=== PATIENT | female | born 1945 | race Caucasian/White ===

== ENCOUNTER → 2018-04-23 17:01 | Outpatient (CLI) | payer MEDICARE, BC, SELFPAY ==
--- NOTE | 2018-04-23 17:10 | MM_ITS ---
MM Dig screening mamm BI w/CAD CAD Screening COMPARISON: Digital mammograms with CAD 02/04/2016 and 01/26/2015 INDICATION: There is a history of breast cancer in patient's mother and paternal grandmother both after menopause TECHNIQUE: Standard CC and MLO images were obtained. R2 CAD reviewed. FINDINGS: Moderate fibroglandular densities are seen in the central portions of both breasts and the findings are bilateral and symmetrical. There are a few benign-appearing calcifications in each breast. There is no suspicious lesion and there are no suspicious microcalcifications. IMPRESSION: Moderate breast density with no suspicious lesion seen BI-RADS Category: 2 Benign Finding(s) RECOMMENDED FOLLOW-UP: 1YR - 1 YEAR FOLLOW-UP (A letter has been sent to the patient regarding results of the study.)
== END ==
PROVIDERS: PCP Family Medicine; Visit Provider Obstetrics & Gynecology
DX: Z12.31 Encounter for screening mammogram for malignant neoplasm of breast (principal)
CPT/HCPCS: 77067

== ENCOUNTER → 2018-05-01 16:52 | Outpatient (CLI) | payer MEDICARE, BC, SELFPAY ==
--- NOTE | 2018-05-01 17:00 | XR_ITS ---
XR chest 2V HISTORY: ITS.REASON: BRONCHITIS ORDERING PHYSICIAN: Charanjit Orr MD PATIENT AGE: 72 years COMPARISON: 02/10/2015 FINDINGS: The cardiomediastinal silhouette and pulmonary vascularity are within normal limits. The lungs are clear without infiltrates, suspicious nodules, or pleural effusions. No acute bony abnormalities. IMPRESSION: Negative chest, no acute finding
== END ==
PROVIDERS: PCP Family Medicine; Visit Provider Family Medicine
DX: J40 Bronchitis, not specified as acute or chronic (principal)
CPT/HCPCS: 71046

== ENCOUNTER → 2018-10-14 09:25 | Outpatient (CLI) | payer MEDICARE, BC, SELFPAY ==
--- NOTE | 2018-10-14 09:35 | XR_ITS ---
XR DEXA axial skeleton HISTORY: ITS.REASON: OSTEOPENIA ORDERING PHYSICIAN: Charanjit Orr MD PATIENT AGE: 73 years COMPARISON: None FINDINGS: The BMD measured at the Left femoral neck is 1.060 g/cm squared with a T score of 0.2. This is considered Normal according to the World Health Organization criteria. Fracture risk is Low. Treatment is advised. The L1 L4 density has a T score of 2.0 which is normal. IMPRESSION: Normal bone density. Suggest follow-up exam October 2020
== END ==
PROVIDERS: PCP Family Medicine; Visit Provider Family Medicine
DX: M85.89 Other specified disorders of bone density and structure, multiple sites (principal)
CPT/HCPCS: 77080

== ENCOUNTER → 2019-05-13 09:29 | Outpatient (CLI) | payer MEDICARE, BC, SELFPAY ==
--- NOTE | 2019-05-13 09:30 | MM_ITS ---
PROCEDURE: MM DIG SCREENING MAMM BI W/CAD Patient Age:73Y CLINICAL INDICATION: screening mammogram: Patient takes Premarin... No new complaints.. Previous right breast aspiration Family history. Mother with breast cancer age 65. Grandmother age 70 COMPARISON: DMSB DIGITAL MAMM-SCREEN BILATERAL from 10/06/2010 DMSB DIGITAL MAMM-SCREEN BILATERAL from 12/25/2011 DMSB DIG MAMM-SCREEN MAKENNA from 12/27/2012 DMSB DIG MAMM-SCREEN MAKENNA from 01/01/2014 DMSB DIG MAMM-SCREEN MAKENNA from 01/26/2015 DMSB DIG MAMM-SCREEN MAKENNA from 02/04/2016 [facility] MM Dig screening mamm BI w/CAD from 04/23/2018 TECHNIQUE: Standard CC and MLO images were obtained. R2 CAD reviewed. FINDINGS: Moderate density heterogeneous breast tissue pattern bilaterally.,. No dominant or suspicious mass, no suspicious calcifications,. Right breast: The heterogeneous tissue at the central breast is similar to multiple previous studies with no significant interval change but no new areas of concern. A Left breast: Stable since multiple previous studies. Two thousand and 2016 provide the best comparison the IMPRESSION: Stable bilateral mammogram. No new areas of concern Bilateral follow-up 1 year recommended moderately dense heterogeneous breast for age. BI-RAD Category: 2 Benign Finding(s) FOLLOW-UP: 1YR 1 Year Follow-up (A letter has been sent to the patient regarding results of the study.) Dictated by: Jim Tam MD 05/14/2019 21:43 Electronically signed by Jim Tam MD in [place] 05/14/2019 21:43
== END ==
PROVIDERS: PCP Family Medicine; Visit Provider Obstetrics & Gynecology
DX: Z12.31 Encounter for screening mammogram for malignant neoplasm of breast (principal)
CPT/HCPCS: 77067

== ENCOUNTER → 2019-07-30 14:09 | Outpatient (CLI) | payer MEDICARE, BC, SELFPAY ==
--- NOTE | 2019-07-30 14:27 | XR_ITS ---
PROCEDURE: XR CHEST 2V CLINICAL HISTORY: PERSISTANT COUGH COMPARISON: CXR CHEST(2 VIEWS-NOT PORTABLE) from 02/08/2015 CXR CHEST(2 VIEWS-NOT PORTABLE) from 02/10/2015 CXR2V XR chest 2V from 05/01/2018 FINDINGS: The cardiomediastinal silhouette and pulmonary vascularity are within normal limits. Patchy peripheral infiltrate is present in the right upper lobe laterally. No acute bony abnormalities. IMPRESSION: Patchy peripheral right upper lobe infiltrate/pneumonia Dictated by: Armando Gonzales MD 07/30/2019 18:40 Electronically signed by Armando Gonzales MD in [place] 07/30/2019 18:40
== END ==
PROVIDERS: PCP Family Medicine; Visit Provider Family Medicine
DX: R05 Cough (principal)
CPT/HCPCS: 71046

== ENCOUNTER → 2019-08-09 10:59 | Outpatient (CLI) | payer MEDICARE, BC, SELFPAY ==
--- NOTE | 2019-08-09 | XR_ITS ---
PROCEDURE: XR CHEST 2V Patient Age:73Y CLINICAL HISTORY: FU PNEUMONIA COMPARISON: CXR CHEST(2 VIEWS-NOT PORTABLE) from 02/10/2015 CXR2V XR chest 2V from 05/01/2018 XR CHEST 2V from 07/30/2019 FINDINGS: Today's PA and lateral chest is compared the recent 07/30/2019 chest film which showed a questionable small patchy infiltrate at the periphery of the right lung project over scapula. This suspect small patchy infiltrate feature has cleared and no longer evident . Both lung ballesteros appear clear on today's study with no focal or active infiltrate appreciable. Heart tasha and mediastinal structures appears satisfactory. Stable. No pleural effusion or pneumothorax. Chest wall and T-spine stable and satisfactory. pulmonary vascularity are within normal limits. . No acute bony abnormalities. IMPRESSION: Lungs appear clear on today's study. The small patchy infiltrate at right lung noted on recent CXR from 07/30/2019 is no longer evident. Dictated by: Jim Tam MD 08/09/2019 19:01 Electronically signed by Jim Tam MD in [place] 08/09/2019 19:01
== END ==
PROVIDERS: PCP Family Medicine; Visit Provider Physician Assistant
DX: J18.9 Pneumonia, unspecified organism (principal); R05 Cough
CPT/HCPCS: 71046

== ENCOUNTER → 2020-05-19 08:54 | Outpatient (CLI) | payer MEDICARE, BC, SELFPAY ==
--- NOTE | 2020-05-19 08:54 | MM_ITS ---
PROCEDURE: MM DIG SCREENING MAMM BI W/CAD Referring Doctor: Teresa Palacios Patient Age:74Y CLINICAL INDICATION: Routine Screening Mammogram Takes Premarin. No new complaints Family history mother breast cancer age 70; paternal grandmother age 70 COMPARISON: MG DMSB DIGITAL MAMM-SCREEN BILATERAL from 12/25/2011 MG DMSB DIG MAMM-SCREEN MAKENNA from 12/27/2012 MG DMSB DIG MAMM-SCREEN MAKENNA from 01/01/2014 MG DMSB DIG MAMM-SCREEN MAKENNA from 01/26/2015 MG DMSB DIG MAMM-SCREEN MAKENNA from 02/04/2016 MG [facility] MM Dig screening mamm BI w/CAD from 04/23/2018 MG MM DIG SCREENING MAMM BI W/CAD from 05/13/2019 TECHNIQUE: Standard CC and MLO images were obtained. R2 CAD reviewed. Bilateral digital breast tomosynthesis included. FINDINGS: Heterogeneous breast pattern, with scattered fibroglandular elements. Overall moderate breast density Prior films are very helpful and again note heterogeneous scattered asymmetric fibroglandular density overall these have remained fairly stable but with only mild accentuation of areas discussed below at right breast the Right breast- On today's standard cc view note area density labeled A at lateral central breast-. Initially question possible minor architectural changes in this region on the is standard CC view but this areas less concerning on the tomosynthesis view and seems to dissipate of for the most part, this more likely overlapping shadows. Also on today's MLO view there is a similar slightly focal area at the central breast labeled Y.. Which is questionably seen on MLO tomosynthesis slice 36 I tend to favor these are both more likely accentuation of overlapping fibroglandular elements the which are slightly more evident today.-. Note very similar heterogeneous tissue pattern throughout the central breast is been seen on studies dating back to 2014, 2016, 2018. However since these areas standout slightly more on today's studies I would suggest additional mammogram spot views (spot cc, spot MLO and full 90 view right breast) ultrasound of right breast to best evaluate these areas. Left breast-no new areas of concern on the left. Follow-up 1 year adequate on left IMPRESSION: Right breast-minimal areas of asymmetry labeled A and B. These more likely accentuated due to overlapping shadows today; however I would suggest spot views and ultrasound right breast to further evaluate Left breast no new areas of concern in. Follow-up 1 year on left . BI-RAD Category: 0 Need Additional Imaging Evaluation FOLLOW-UP: Additional spot views and ultrasound breast recommended at this time as discussed in the report above (A letter has been sent to the patient regarding results of the study.) THE Dictated by: Jim Tam MD 05/26/2020 08:57 Jim Tam MD in [place] 05/26/2020 08:57
== END ==
PROVIDERS: PCP Family Medicine; Visit Provider Obstetrics & Gynecology
DX: Z12.31 Encounter for screening mammogram for malignant neoplasm of breast (principal)
CPT/HCPCS: 77063; 77067

== ENCOUNTER → 2020-06-07 13:35 | Outpatient (CLI) | payer MEDICARE, BC, SELFPAY ==
--- NOTE | 2020-06-07 13:35 | MM_ITS ---
PROCEDURE: MM DIG MAMM DX UNILAT RT CAD Digital Breast Tomosynthesis Included CLINICAL INDICATION: Dx Right Breast- Abnormal Mammogram COMPARISON: MG [facility] MM Dig screening mamm BI w/CAD from 04/23/2018 MG MM DIG SCREENING MAMM BI W/CAD from 05/13/2019 MG MM DIG SCREENING MAMM BI W/CAD from 05/19/2020 US US BREAST RT COMPLETE from 06/07/2020 TECHNIQUE: Standard CC and MLO images and 3D Tomosynthesis was obtained. R2 CAD reviewed. Spot compression MLO and CC views were obtained as well FINDINGS: The additional spot views lessen concern for any suspicious lesion in the central portion and subareolar region right breast. Minimal focal arterial calcifications again seen along with a few benign-appearing microcalcifications. Ultrasound performed the same date shows several tiny cystic lesions which all appear benign all no more than 3-4 mm in size. IMPRESSION: Basically negative problem solving views and in addition no ultrasound suggestion of abnormal lesions and recommend the patient continue with yearly screening mammography BI-RAD Category: 2 Benign Finding(s) FOLLOW-UP: 1YR 1 Year Follow-up (A letter has been sent to the patient regarding results of the study.) Dictated by: Dr. Ashvin Huang MD 06/14/2020 09:31 Dr. Ashvin Huang MD in [place] 06/14/2020 09:31
--- NOTE | 2020-06-07 13:35 | US_ITS ---
PROCEDURE: US BREAST RT COMPLETE CLINICAL INDICATION: US Right Breast- Abnormal Mammogram COMPARISON: No exams were available for comparison FINDINGS: Fairly homogeneous echogenicity is seen in the subareolar region and central portion of the breast. There are several tiny hypoechoic there is no suspicious solid lesions seen. There is a couple of normal appearing nodes in the axilla. Lesions the 6, 7 and 10 o'clock positions near the nipple all no more than 3-4 to 5 mm in size and typical of tiny cysts. IMPRESSION: No suspicious lesions seen in the area scanned and along with essentially and negative problem solving views same date and recommend the patient continue with yearly screening mammography Dictated by: Dr. Ashvin Huang MD 06/14/2020 09:52 Dr. Ashvin Huang MD in [place] 06/14/2020 09:52
== END ==
PROVIDERS: PCP Family Medicine; Visit Provider Obstetrics & Gynecology
DX: R92.8 Other abnormal and inconclusive findings on diagnostic imaging of breast (principal)
CPT/HCPCS: 76641; 77061; 77065; G0279

== ENCOUNTER → 2021-04-25 16:49 | Outpatient (CLI) | payer MEDICARE, SELFPAY ==
--- NOTE | 2021-04-25 16:56 | XR_ITS ---
PROCEDURE: XR CHEST 2V CLINICAL HISTORY: COUGH COMPARISON: CR CXR2V XR chest 2V from 05/01/2018 CR XR CHEST 2V from 07/30/2019 CR XR CHEST 2V from 08/09/2019 FINDINGS: The cardiomediastinal silhouette and pulmonary vascularity are within normal limits. The lungs are clear without infiltrates, suspicious nodules, or pleural effusions. No acute bony abnormalities. IMPRESSION: No acute findings. Dictated by: Armando Gonzales MD 04/27/2021 11:41 Armando Gonzales MD in [place] 04/27/2021 11:41
== END ==
PROVIDERS: PCP Family Medicine; Visit Provider Family Medicine
DX: R05.9 Cough, unspecified (principal)
CPT/HCPCS: 71046

== ENCOUNTER → 2023-03-06 10:10 | Outpatient (CLI) | payer MEDICARE, SELFPAY ==
--- NOTE | 2023-03-06 11:05 | PC.NURSE ---
PFT completed without incident Pt given Albuterol 0.083% via HHN, per written protocol, Pt tolerated tx well. Pt did refuse 6 Minute Walk Test states she has never needed Oxygen and does not feel that she needs it now. SPO2 99% sitting comfortably in the chair at this time.
[2023-03-06 11:34] LABS: Basophils % 0.4 % (0.1-2.0); Eosinophils # 0.2 K/mm3 (0.0-0.4); Eosinophils % 1.8 % (0.1-12.0); Hematocrit 42.4 % (37.0-47.0); Hemoglobin 14.4 g/dL (12.2-16.2); Lymphocytes # 2.4 K/mm3 (0.7-4.5); Lymphocytes % 28.9 % (10-50); Mean Corpuscular HGB Conc 33.9 g/dL (31.8-35.4); Mean Corpuscular Hemoglobin 31.5 pg (27.0-31.2); Mean Corpuscular Volume 92.9 fl (81-99); Mean Platelet Volume 7.7 fl (7.4-10.4); Monocytes # 0.4 K/mm3 (0.1-1.0); Monocytes % 4.8 % (1.7-9.3); Neutrophils # 5.3 K/mm3 (1.8-7.8); Neutrophils % 64.1 % (37.0-80.0); Platelet Count 333 K/mm3 (142-424); Red Blood Count 4.56 M/mm3 (4.20-5.40); Red Cell Distribution Width 13.1 % (11.5-17.5); White Blood Count 8.3 K/mm3 (4.8-10.8)
[2023-03-09 14:34] LABS: D001-IgE D pteronyssinus <0.10 kU/L (Class 0); D002-IgE D farinae <0.10 kU/L (Class 0); E001-IgE Cat Dander <0.10 kU/L (Class 0); E005-IgE Dog Dander <0.10 kU/L (Class 0); E072-IgE Mouse Urine <0.10 kU/L (Class 0); G002-IgE Bermuda Grass <0.10 kU/L (Class 0); G006-IgE Timothy Grass <0.10 kU/L (Class 0); I006-IgE Cockroach, German <0.10 kU/L (Class 0); Immunoglobulin E, Total 5 IU/mL (6-495); M001-IgE Penicillium chrysogen <0.10 kU/L (Class 0); M002-IgE Cladosporium herbarum <0.10 kU/L (Class 0); M003-IgE Aspergillus fumigatus <0.10 kU/L (Class 0); M006-IgE Alternaria alternata <0.10 kU/L (Class 0); T001-IgE Maple/Box Elder <0.10 kU/L (Class 0); T003-IgE Common Silver Birch <0.10 kU/L (Class 0); T006-IgE Cedar, Mountain <0.10 kU/L (Class 0); T007-IgE Oak, White <0.10 kU/L (Class 0); T008-IgE Elm, American <0.10 kU/L (Class 0); T010-IgE Walnut <0.10 kU/L (Class 0); T011-IgE Maple Leaf Sycamore <0.10 kU/L (Class 0); T014-IgE Cottonwood <0.10 kU/L (Class 0); T015-IgE Ash, White <0.10 kU/L (Class 0); T022-IgE Pecan, Hickory <0.10 kU/L (Class 0); T070-IgE White Mulberry <0.10 kU/L (Class 0); W001-IgE Ragweed, Short <0.10 kU/L (Class 0); W011-IgE Thistle, Russian <0.10 kU/L (Class 0); W014-IgE Pigweed, Common <0.10 kU/L (Class 0); W018-IgE Sheep Sorrel <0.10 kU/L (Class 0)
== END ==
PROVIDERS: PCP Family Medicine; Visit Provider Internal Medicine Pulmonary Disease
DX: R06.02 Shortness of breath; J45.909 Unspecified asthma, uncomplicated
CPT/HCPCS: 36415; 82785; 85025; 86003; 94060; 94726; 94729

== ENCOUNTER 2023-09-04 07:53 | Outpatient (CLI) | payer MEDICARE, SELFPAY ==
--- NOTE | 2023-09-04 | CA_ITS ---
APPROVED REPORT Exam: Pharmacologic Technologist: Anila Winkler Ht: 5 ft 3 in Wt: 195 lbs BSA: 1.91 m2 HR: 69 bpm BP: 167/70 mmHg Rhythm: NSR Indications: Shortness of Air Medical History Medications: Aspirin,,,,, Pantoprazole,,,,, Flonase,,,,, Albuterol,,,,, Calcium,,,,, Montelukast,,,,, AZelastine,,,,, Multivitamin,,,,, Irbesartan-hctz,,,,, Stress Test Details Test: LEXISCAN HR Resting HR: 64 bpm Max Heart Rate (APMHR): 144 bpm Max HR Achieved: 92 bpm Target HR (85% APMHR): 122 bpm % of APMHR: 64 Recovery HR: 69 bpm BP Resting BP: 167.0/70.0 mmHg Max BP: 179.0/68.0 mmHg Recovery BP: 172.0/75.0 mmHg ECG Resting ECG: Sinus rhythm Stress ECG: No significant ST changes Arrhythmia: PVCs Clinical Exercise duration: 04:00 min Highest Stage Achieved: Exercise capacity: 1.0 METs Stress ECG Conclusion Symptoms: None Arrhythmias/Ectopy: PVCs ST-T Changes: No significant ST changes Conclusion: EKG portion unremarkable due to Lexiscan infusion. Myoview images reported separately. Test Summary REST . . . . . . . Resting REST 03:28 . . 64 . 167/ 70 . . Stage 1 . . . . . . . Myoview Injected Stage 1 01:00 . . 89 . . . . Stage 2 01:00 . . 82 . . . . Stage 3 01:00 . . 70 . 160/ 69 . . Stage 4 01:00 . . 69 . 179/ 68 . Stop exercise at 04:00 RECOVERY 01:00 . . 67 . 140/ 74 . . RECOVERY 02:00 . . 66 . 140/ 74 . . RECOVERY 03:00 . . 68 . 167/ 74 . . RECOVERY 04:00 . . 66 . 172/ 75 . . RECOVERY 04:06 . . 65 . 172/ 75 . . Electronically signed by : Irasema Lion MD 09/05/2023 13:06:30
--- NOTE | 2023-09-04 07:57 | NM_ITS ---
APPROVED REPORT Exam: Nuclear Stress Test Indication: SOB, HTN, Family history Patient Location: Outpatient Stress Tech: Anila Winkler [place] Tech:Luizaaimee Bear, ARRT, RT (R)(N) Ht: 5 ft 3 in Wt: 190 lbs Bra Size: 42B HR: 64 bpm BP: 167/70 mmHg BSA: 1.89 m2 TID: 1.13 BMI: 33.6 History: SOB, HTN, Family history Procedure: Patient received 0.4 mg of intravenous Lexiscan, resting heart rate 64 bpm, resting blood pressure 167/70 mmHg, with Lexiscan maximum heart rate achieved was 92 bpm which is % of the maximum predicted heart rate and blood pressure was 179/68 mmHg. With Lexiscan, patient denied any complaint of chest pain. Cardiac Stress and Resting SPECT Images: Cardiac Stress and Resting SPECT images were obtained using technetium 99m Myoview 32.4 mCi stress and 10.55 mCi at rest. Resting and stress imaging in supine or prone positions demonstrated no evidence of fixed or reversible perfusion defects. Gated imaging demonstrates normal global and regional LV systolic function. LVEF estimated at 71%. Conclusion: No evidence of fixed or reversible perfusion defects. Gated imaging demonstrates normal global and regional LV systolic function. LVEF estimated at 71%. Electronically signed by : Irasema Lion MD 09/05/2023 13:07:48
[2023-09-04] MEDS: REGADENOSON 0.4MG/5ML SYRINGE 0.400000000000000022 MG IV (09:18)
[2023-09-04] MEDS: ISOTOPE MYOVIEW (PER STUDY) 1 DOSE IV (09:19)
[2023-09-04] MEDS: SODIUM CHLORIDE 0.9% 10ML SYR (RAD ONLY) 10 ML IV ×2 (09:19)
--- NOTE | 2023-09-04 09:23 | CA_ITS ---
APPROVED REPORT EXAM: Comprehensive 2D, Doppler, and color-flow Echocardiogram [employer] Workers: Claire Ku RVT Ht: 5 ft 3 in Wt: 195lbs BSA: 1.91 BP: 175/70 mmHg Indications: SOA,ASTHMA,EX SMOKER 2D Dimensions IVSd 1.60 cm F: 0.6-1.0 LVEF (Visual) 61.40 % PWd 1.14 cm F: 0.6 - 1.0 LA Volume 30.90 mL LVDd 4.51 cm F: 3.9 - 5.3 LA Volume Index 16.18 mL/m2 (M/F) 16-34 LVDs 3.03 cm F: 2.2 - 3.5 M-Mode Dimensions LA Diam 3.96 cm (1.9-4.0) LV Diastology E Decel Time 210 (160-240 msec) E/A Ratio 0.7 Aortic Valve GARCÍA Index 1.37 cm2/m2 AoV Peak Pineda. 133.0 (50-130 cm/s) AO Peak GR. 7.10 mmHg AO Mean GR. 3.20 (<5 mmHg) AO VTI 26.5 (18-25 cm) GARCÍA (VTI) 2.69 (2.5-4.5 cm2) Mitral Valve MV E Max Pineda. 67.0 (40-130 cm/s) MV A Velocity 99.0 (40-130 cm/s) E/A Ratio 0.67 MV PHT 62.0 ms Pulmonary Valve PV Peak Velocity 95.0 (50-150 cm/s) Left Ventricle The left ventricle is normal size. The left ventricular systolic function is normal. The left ventricular ejection fraction is within the normal range. Proximal septal thickening is noted. There is normal LV segmental wall motion. The left ventricular diastolic function is normal. LVEF is 55%. Right Ventricle The right ventricle is normal size. The right ventricular systolic function is normal. Atria The left atrium size is normal. The right atrium size is normal. There is no Doppler evidence of interatrial shunt. Aortic Valve The aortic valve is mildly thickened. There is no aortic valvular stenosis. No aortic regurgitation is present. Mitral Valve The mitral valve is normal in structure. No evidence of mitral valve stenosis. Trace mitral regurgitation. Tricuspid Valve The tricuspid valve leaflets are thin and pliable. Trace tricuspid regurgitation. There is insufficient TR jet to estimate RVSP. Pulmonic Valve The pulmonary valve is normal in structure. Trace pulmonic regurgitation. Great Vessels The aortic root is normal in size. The ascending aorta is normal in size. IVC is normal in size and collapses >50% with inspiration. Pericardium There is no pericardial effusion. Other Information Study Quality: Fair Conclusion Normal biventricular systolic function. No significant valvular stenosis or regurgitation. Electronically signed by : Irasema Lion MD 09/09/2023 13:55:44
== END 2023-09-04 23:59 | disposition home or self-care (01) ==
PROVIDERS: PCP Family Medicine; Visit Provider Family Medicine
DX: R06.02 Shortness of breath (principal)
CPT/HCPCS: 78452; 93017; 93018; 93306; A9502; J2785

== ENCOUNTER 2023-09-28 12:36 | Outpatient (CLI) | payer MEDICARE, SELFPAY ==
--- NOTE | 2023-09-28 12:46 | XR_ITS ---
FINAL REPORT CLINICAL HISTORY: SHORTNESS OF BREATH FINDINGS: TWO-VIEW CHEST The heart size is normal. The mediastinum is normal. There are mild right base opacities, may represent atelectasis or pneumonia. There is no pneumothorax. IMPRESSION: Right base atelectasis versus pneumonia. Reviewed, Interpreted and Dictated by Speedy Green III, MD Transcribed by Anaya Jeter Authenticated and [facility]
== END 2023-09-28 23:59 | disposition home or self-care (01) ==
LOC: RAD 12:37
PROVIDERS: PCP Family Medicine; Visit Provider Family Medicine
DX: R06.02 Shortness of breath (principal)
CPT/HCPCS: 71046

== ENCOUNTER 2023-10-01 09:23 | Outpatient (CLI) | payer MEDICARE, SELFPAY ==
--- NOTE | 2023-10-01 09:32 | XR_ITS ---
FINAL REPORT CLINICAL HISTORY: SCREENING FINDINGS: Using L1-4, the bone mineral density of the spine is 1.137 g/cm2, corresponding to T-score of 0.8. Using the left hip, the bone mineral density of the femoral neck is 0.97 g/cm2, corresponding to a T-score of 1.1. Using the right hip: The bone mineral density of the femoral neck is 1.044 g/cm2, corresponding to a T-score of 0.8. IMPRESSION: Normal bone mineral density of the lumbar spine and hips. NOTE: T-score: Standard deviation compared with peak bone mass of young adult mean. *Following the recommendations of the International Society of Bone densitometry, classification of hip BMD is based on the lower of two T-scores; total hip or femoral neck. Reviewed, Interpreted and Dictated by Antwan Chavez MD Transcribed by Andria Marrufo Authenticated and [facility]
--- NOTE | 2023-10-01 09:34 | MM_ITS ---
PROCEDURE INFORMATION: Exam: MG Bilateral Screening 3D Mammography Exam date and time: 10/01/2023 9:44 AM Age: 78 years old Clinical indication: Screening examination. Her mother had breast cancer at age 70 and her paternal grandmother had breast cancer at age 70. TECHNIQUE: Imaging protocol: Bilateral Screening tomosynthesis and 2D mammography including computer-aided detection (CAD) when performed. COMPARISON: 1. MG MM DIG MAMM DX UNILAT RT CAD 06/07/2020 1:45 PM 2. MG MM DIG SCREENING MAMM BI W/CAD 05/19/2020 8:57 AM 3. MG MM DIG SCREENING MAMM BI W/CAD 05/13/2019 9:47 AM 4. MG SCBI MM Dig screening mamm BI w/CAD 04/23/2018 5:17 PM FINDINGS: MAMMOGRAPHY: Breast composition: There are scattered areas of fibroglandular density. Mass: None. Architectural distortion: None. Calcifications: No suspicious calcifications. Asymmetric density: None. Skin thickening: None. Axillary adenopathy: None. IMPRESSION: No mammographic evidence of malignancy. Annual screening is recommended unless otherwise clinically indicated. ASSESSMENT: BI-RADS Category 1: Negative
== END 2023-10-01 23:59 | disposition home or self-care (01) ==
LOC: RAD 09:24
PROVIDERS: PCP Family Medicine; Visit Provider Family Medicine
DX: Z12.31 Encounter for screening mammogram for malignant neoplasm of breast; Z78.0 Asymptomatic menopausal state
CPT/HCPCS: 77063; 77067; 77080

== ENCOUNTER 2024-06-12 15:52 | Outpatient (CLI) | payer MEDICARE, SELFPAY ==
--- NOTE | 2024-06-12 15:59 | XR_ITS ---
FINAL REPORT TECHNIQUE: Chest PA & Lateral CLINICAL HISTORY: RESPIRATORY INFECTION COMPARISON: 09/28/2023 FINDINGS: 2 views of the chest were performed. The heart size is normal. The mediastinum is within normal limits. There is patchy airspace opacity at the right base, which is new since prior exam, probably due to acute pneumonia. There are no pleural effusions. There is no pneumothorax. The bony thorax appears intact. IMPRESSION: Right base pneumonia. Reviewed, Interpreted and Dictated by Antwan Chavez MD Transcribed by Ce Padilla Authenticated and [facility]
== END 2024-06-12 23:59 | disposition home or self-care (01) ==
LOC: RAD 15:55
PROVIDERS: PCP Family Medicine; Visit Provider Family Medicine
DX: J98.8 Other specified respiratory disorders (principal)
CPT/HCPCS: 71046

== ENCOUNTER 2024-06-12 17:44 | Inpatient (IN) | payer MEDICARE, SELFPAY ==
[2024-06-12 18:00] VITALS: BP 141/69; PULSE 109; RESP 18; TEMP 37.4; O2SAT 96; BMI 30.2
--- NOTE | 2024-06-12 18:10 | EXP.HP ---
History of Present Illness *Admission Date: 06/12/24 *Reason for visit:: respiratory infection *History of present illness: 78 yo female presents with cough and congestion. She has underlying lung issues and a chronic cough this been going on for a while. She was on vacation in [place] and was seen in an urgent treatment center on 05/26/2024 and subsequently on 06/01/2024. She has received prescriptions for amoxicillin and azithromycin. She was also treated with prednisone and given cough medication. She is continued with cough and congestion. She did have a period of time where she was feeling better but then it has recurred. She had a fever to 101.9 recently. Her cough has been productive. She feels very weak. The issue with the chronic cough has been going on for months. She started having relief after seeing the underwriting support specialist and being treated by Dr. Hanna. She thought that her issue there was resolving. Chest x-ray was obtained in the office today and suggest bilateral infiltrates at the bases. With review of her previous chest x-rays there is some similarity to this pattern. She has seen Dr. Dennis, director of sports medicine, though he has not seen her recently. She has never had a CT scan. She does use an albuterol inhaler periodically. She has been on montelukast prescribed I believe by the underwriting support specialist. She has longstanding hypertension adequately treated. She was negative for flu and COVID 19 swabs in the office of [facility] Disclaimer: The information contained in this section may have been updated after the patient was seen, as this information can be updated by other users. Medical History (Updated 06/12/24 @ 18:28 by Charanjit Orr MD) Hearing deficit Pneumonia History of asthma Chronic cough Allergic rhinitis Surgical History History of appendectomy History of cholecystectomy History of hysterectomy History of section Family History Other Breast cancer Hypertension Social History (Updated 03/20/23 @ 15:42 by Savannah Aviles) Smoking Status: Former smoker smoking status stop date: 1993 alcohol intake: never substance use type: denies use current occupational status: unemployed Travel in the last 8 weeks: Inside the [place] Have you lived/traveled outside US in past 30 days?: No Contact w/someone who lives/traveled outside US past 30 days?: No Exposure to someone with infectious disease in past 14 days?: No Do you have a fever (greater than 100.4 F or 38 C)?: No Have you tested positive for COVID-19: No Exposed to someone with COVID-19 in past 14 days?: No Do you have a sore throat?: No Do you have a cough?: Yes Do you have any weakness?: No Do you have any diarrhea?: No Are you experiencing any unusual bleeding?: No Do you have any muscle aches/pain?: No Do you have any abdominal pain?: No Are you experiencing loss of taste or smell?: No Other Medical History Have you received the Pneumonia Vaccine: Yes Review of Systems Constitutional Constitutional: Reports as per HPI, Denies body ache(s), Denies chills, Reports difficulty sleeping, Denies headache(s) and Reports poor appetite (States she has lost 20 pounds) Eyes Eyes: Reports system reviewed and no additional complaints, except as documented and Denies blurry vision ENT Ears, Nose, Mouth, and Throat: Reports abnormal hearing, Denies dysphagia and Denies headache(s) *Cardiovascular Cardiovascular: Denies chest pain, Denies chest pain at rest, Denies chest pain with activity, Reports dyspnea on exertion, Denies edema, Denies irregular heart rhythm and Denies leg edema *Respiratory Respiratory: Reports chest congestion, Reports cough, Reports dyspnea on exertion, Reports excessive phlegm production (Some) and Denies stridor *Gastrointestinal Gastrointestinal: Denies abdominal pain, Denies change in bowel habits, Denies change in stool character and Denies dysphagia *Genitourinary Genitourinary: Reports system reviewed and no additional complaints, except as documented *Musculoskeletal Musculoskeletal: Reports as per HPI, Denies arthralgias and Reports back pain Integumentary/Breasts Skin/Breast: Reports system reviewed and no additional complaints, except as documented *Neurologic Neurologic: Reports system reviewed and no additional complaints, except as documented, Reports abnormal hearing, Denies behavioral changes and Denies headache(s) Psychiatric Psychiatric: Reports system reviewed and no additional complaints, except as documented, Denies behavioral changes and Reports change in appetite Endocrine Endocrine: Reports system reviewed and no additional complaints, except as documented Hematologic/Lymphatic Hematologic/Lymphatic: Reports system reviewed and no additional complaints, except as documented Allergic/Immunologic Allergic/Immunologic: Reports system reviewed and no additional complaints, except as documented Meds Home Medications and Allergies Home Medications ?Medication ?Instructions ?Recorded ?Confirmed ?Type aspirin 81 mg tablet,delayed 81 mg PO DAILY 04/26/18 03/20/23 History release calcium carbonate (Calcium 600) 600 mg PO TID 04/26/18 03/20/23 History multivitamin 1 cap PO DAILY 04/26/18 03/20/23 History montelukast 10 mg tablet 10 mg PO DAILY 01/23/23 03/20/23 History pantoprazole 40 mg tablet,delayed 40 mg PO DAILY 01/23/23 03/20/23 History release irbesartan 300 1 tab PO DAILY 03/20/23 03/20/23 History mg-hydrochlorothiazide 12.5 mg tablet montelukast 10 mg tablet 10 mg PO DAILY 90 days #90 tabs 03/20/23 03/20/23 Rx azelastine 137 mcg (0.1 %) nasal See Rx Instructions .Route 10/01/23 Rx spray .COMPLEX #30 mL albuterol 90 mcg-budesonide 80 2 inh inhalation QID PRN shortness 11/19/23 Rx mcg/actuation HFA aerosol inhaler of breath #10.7 grams (Airsupra) fluticasone propionate 50 See Rx Instructions .Route 01/09/24 Rx mcg/actuation nasal .COMPLEX #16 grams spray,suspension New Prescriptions to Start Prescriptions: Allergies Allergy/AdvReac Type Severity Reaction Status Date / Time No Known Allergies Allergy Unverified 03/20/23 15:39 Exam Constitutional Constitutional: no acute distress *Routine HEENT Exam Head: Present normocephalic Eye: Present PERRL; Absent conjunctival icterus ENT: Present mucous membranes moist *Routine Neck Exam Neck: Present supple and full ROM Routine Chest/Breast/Axilla Exam Chest wall: Absent tenderness *Routine Respiratory Exam Respiratory: Present decreased breath sounds, rales (Bibasilar greater on the left), rhonchi (On the left) and able to speak in complete sentences; Absent respiratory distress *Routine Cardiovascular Exam Cardiovascular: Present RRR; Absent murmur or ectopic *Routine Abdominal Exam Abdominal: Present soft; Absent tenderness *Routine Rectal Exam Rectal:: deferred *Routine Genitalia Exam Genitalia:: deferred *Routine Extremities Exam Extremities: Absent edema Routine Back/Spine/Pelvis Exam Back/Spine: Absent CVA tenderness *Routine Skin Exam Skin: Present intact and normal turgor; Absent cyanosis, petechiae, urticaria, jaundice or rash *Routine Neurological Exam Neurological: Present alert, oriented X3, CN II-XII intact and moving all extremities; Absent altered mental status or hearing grossly intact Routine Psychiatric Exam Psychiatric: Present normal affect, normal thought process and cooperative Assessment and Plan *Assessment and plan (1) Pneumonia: Status: Acute Category: Medical Code(s): J18.9 - Pneumonia, unspecified organism (2) History of asthma: Status: Acute Category: Medical Code(s): Z87.09 - Personal history of other diseases of the respiratory system (3) Chronic cough: Status: Acute Category: Medical Code(s): R05.3 - Chronic cough (4) Hearing deficit: Status: Acute Category: Medical Code(s): H91.90 - Unspecified hearing loss, unspecified ear Plan IV antibiotics. CT of chest. Pulmonary consult.
--- NOTE | 2024-06-12 18:35 | CT_ITS ---
PROCEDURE INFORMATION: Exam: CT Chest Without and With Contrast; Diagnostic Exam date and time: 06/12/2024 9:01 PM Age: 78 years old Clinical indication: Cough; Additional info: Persistant cough, bibasilar infiltrates TECHNIQUE: Imaging protocol: Diagnostic computed tomography of the chest without and with contrast. Radiation optimization: All CT scans at this facility use at least one of these dose optimization techniques: automated exposure control; mA and/or kV adjustment per patient size (includes targeted exams where dose is matched to clinical indication); or iterative reconstruction. Contrast material: ISOVUE; Contrast volume: 75 ml; Contrast route: IV; COMPARISON: CR XR CHEST 2V 06/12/2024 4:01 PM FINDINGS: Lungs: Bilateral peripheral/perihilar ground-glass opacities. Dense bibasilar opacities/consolidation. Pleural spaces: Unremarkable. No pneumothorax. No pleural effusion. Heart: Unremarkable. No cardiomegaly. No pericardial effusion. Coronary arteries: No atherosclerotic calcification of coronary arteries. Lymph nodes: Calcified and reactive mediastinal lymph nodes without lymphadenopathy. Vasculature: Unremarkable. No aortic aneurysm. Bones/joints: Unremarkable. No acute fracture. Soft tissues: Unremarkable. IMPRESSION: Bilateral perihilar/peripheral ground-glass and bibasilar opacities suspicious for COVID infiltration.
[2024-06-12 18:47] VITALS: PULSE 102; PULSE 98
[2024-06-12] MEDS: IPRATROPIUM/ALBUTEROL 3 ML NEB IH ×2 (18:47→23:15)
[2024-06-12] MEDS: levoFLOXacin 750 MG TABLET PO (18:57)
[2024-06-12] MEDS: ENOXAPARIN 40MG/0.4ML SYRINGE 40 MG SUBCUT (18:57)
[2024-06-12] MEDS: Dex 5% in 0.45% NaCl 1,000 ML 50 ML IV (18:59)
[2024-06-12] MEDS: CEFTRIAXONE SODIUM 1 GM in 0.9 % SODIUM CHLORIDE 50 ML IV (19:00)
[2024-06-12 19:11] LABS: Lactic Acid 1.3 mmol/L (0.7-2.1)
[2024-06-12 19:31] LABS: Troponin I < 0.01 ng/ml (0.00-0.034)
[2024-06-12 19:41] LABS: Erythrocyte Sedimentation Rate 23 mm/hr (0-30)
[2024-06-12 19:45] LABS: Anion Gap 16.2 mEq/L (5-15); Blood Urea Nitrogen 18 mg/dl (7-17); Calcium 9.9 mg/dl (8.4-10.2); Carbon Dioxide 26 mmol/L (22.0-30.0); Chloride 90 mmol/L (98-107); Creatinine Clearance Estimated 58 mL/min (50-200); Estimated Glomerular Filt Rate 61 ml/min (>60); GFR (African American) 74 ML/MIN (>60); Glucose 102 mg/dl (74-100); Potassium 3.2 mmoL/L (3.5-5.1); Sodium 129 mmol/L (136-145)
[2024-06-12 20:00] VITALS: BP 134/60; PULSE 86; RESP 18; TEMP 36.9; O2SAT 96
--- NOTE | 2024-06-12 20:55 | PC.NURSE ---
Patient left floor with Radiology at 20:53.
[2024-06-12] MEDS: IOPAMIDOL-370 (76%);100ML BOTTLE 75 ML IV (21:06)
[2024-06-12] MEDS: SODIUM CHLORIDE 0.9% 10ML SYR (RAD ONLY) 10 ML IV (21:06)
--- NOTE | 2024-06-12 21:07 | PC.NURSE ---
Patient back from Radiology at 21:06.
[2024-06-12] MEDS: PANTOPRAZOLE 40MG TABLET 40 MG PO (21:17)
[2024-06-12 22:13] LABS: C-Reactive Protein 387.5 mg/L (0-4)
--- NOTE | 2024-06-12 23:12 | ECG_ITS ---
APPROVED REPORT Exam: Resting ECG HR:91 bpm ECG Measurements Heart Rate 91 AXES SD 158 P 71 QRSd 94 QRS 48 QT 345 T 65 QTc 394 Conclusion SINUS RHYTHM NORMAL ECG UNCONFIRMED REPORT Electronically signed by : Be Sorenson MD 06/13/2024 15:16:16
[2024-06-12 23:15] VITALS: PULSE 90; PULSE 92
[2024-06-13] VITALS (8 sets, daily range): BP systolic 112–152; BP diastolic 60–79; PULSE 77–105; RESP 16–18; TEMP 36.7–37.4; O2SAT 92–95; BMI 29.8
--- NOTE | 2024-06-13 04:09 | PC.NURSE ---
Pt is A/O X 4. She denies pain or discomfort but does report SOA. She has productive cough. 02 Sats above 90 % on RA. Instructed pt in use of Incentive Spirometer, encouraging to use Q 4 Hr WA. Pt able to ambulate to BR. LBM 06/12, voiding without difficulty. CT was completed this shift.
[2024-06-13] MEDS: IPRATROPIUM/ALBUTEROL 3 ML NEB IH ×2 (06:04→13:05)
[2024-06-13 06:21] LABS: Basophils % 0.1 % (0.1-2.0); Eosinophils % 0.1 % (0.1-12.0); Hematocrit 30.1 % (37.0-47.0); Hemoglobin 10.2 g/dL (12.2-16.2); Lymphocytes # 2.2 K/mm3 (0.7-4.5); Lymphocytes % 13.9 % (10-50); Mean Corpuscular HGB Conc 33.9 g/dL (31.8-35.4); Mean Corpuscular Hemoglobin 29.2 pg (27.0-31.2); Mean Corpuscular Volume 86.2 fl (81-99); Mean Platelet Volume 9.7 fl (7.4-10.4); Monocytes # 1.2 K/mm3 (0.1-1.0); Monocytes % 7.5 % (1.7-9.3); Neutrophils # 12.3 K/mm3 (1.8-7.8); Neutrophils % 77.7 % (37.0-80.0); Platelet Count 202 K/mm3 (142-424); Red Blood Count 3.49 M/mm3 (4.20-5.40); Red Cell Distribution Width 12.9 % (11.5-17.5); White Blood Count 15.8 K/mm3 (4.8-10.8)
[2024-06-13 06:45] LABS: MANUAL DIFFERENTIAL MANUAL DIFFERENTIAL (MANUAL DIFF)
[2024-06-13 06:46] LABS: Alanine Aminotransferase 27 U/L (12-78); Albumin Level 3.1 g/dl (3.5-5.0); Albumin/Globulin Ratio 1.1 (1.1-1.8); Alkaline Phosphatase 128 U/L (38-126); Aspartate Amino Transferase 39 U/L (14-36); Bilirubin,Total 0.8 mg/dl (0.2-1.3); Blood Urea Nitrogen 15 mg/dl (7-17); Calcium 8.6 mg/dl (8.4-10.2); Carbon Dioxide 25 mmol/L (22.0-30.0); Chloride 94 mmol/L (98-107); Creatinine Clearance Estimated 58 mL/min (50-200); Estimated Glomerular Filt Rate 70 ml/min (>60); GFR (African American) 84 ML/MIN (>60); Globulin 2.8 g/dL (1.3-3.2); Glucose 97 mg/dl (74-100); Magnesium 1.8 mg/dl (1.6-2.3); Sodium 128 mmol/L (136-145); Total Protein,Serum 5.9 g/dl (6.3-8.2)
--- NOTE | 2024-06-13 06:58 | PC.NURSE ---
Paged Dr ly to report K of 3.
--- NOTE | 2024-06-13 07:30 | HMH.PHAINT1 ---
Pharmacy Intervention Comments: MEDICATION RECONCILIATION COMPLETED ON PATIENT USING EXTERNAL FILL HISTORY FROM PHARMACY. -DAVID WONG, JIMD
[2024-06-13 08:27] LABS: Adenovirus,PCR Not Detected (NotDetected); Coronavirus 229E Not Detected (NotDetected); Coronavirus NL63 Not Detected (NotDetected); Coronavirus OC43 Not Detected (NotDetected); Coronovirus HKU1,PCR Not Detected (NotDetected); Human Metapneumovirus Not Detected (NotDetected); Rhinovirus/Enterovirus Not Detected (NotDetected)
--- NOTE | 2024-06-13 08:27 | P.PN_ITS ---
Subjective *Date: 06/13/24 *Time: 08:27 Interval history: Patient states she is SOA with exertion. She has continued to cough and is now producing sputum. She will get a sputum sample for culture. She denies any pain. She does not have an appetite. Medical Exam Vital signs and Labs for Last 24 Hours: Vital Signs Temp Pulse Pulse Resp BP Pulse Ox O2 Del Method 06/13/24 06:47 Room Air 06/13/24 06:04 82 06/13/24 06:04 86 06/13/24 05:00 Room Air 06/13/24 04:00 99.0 F 89 18 122/60 93 L Room Air 06/13/24 03:00 Room Air 06/13/24 01:00 Room Air 06/13/24 00:00 99.4 F 94 H 16 117/68 92 L Room Air 06/12/24 23:15 92 H 06/12/24 23:15 90 06/12/24 22:54 Room Air 06/12/24 21:00 Room Air 06/12/24 20:00 96 Room Air 06/12/24 20:00 98.5 F 86 18 134/60 96 Room Air 06/12/24 19:00 Room Air 06/12/24 18:47 98 H 06/12/24 18:47 102 H 06/12/24 18:00 99.3 F 109 H 18 141/69 H 96 Room Air Intake and Output 06/12/24 06/13/24 06/13/24 19:59 03:59 11:59 Output Total 0 / 0 0 / 0 Balance 0 / 0 0 / 0 Output: Output, Urine Amount 0 / 0 0 / 0 Other: Number of Unmeasured Voids 1 1 Weight 170 lb 7 oz 168 lb 9.6 oz Patient Weight 06/13/24 11:59 Weight 168 lb 9.6 oz Laboratory Results - last 24 hr 06/12/24 18:53: ESR 23, Sodium 129 L, Potassium 3.2 L, Chloride 90 L, Carbon Dioxide 26, Anion Gap 16.2 H, BUN 18 H, Creatinine 0.90, Estimated Creat Clear 58, Estimated GFR 61, Est GFR ( Amer) 74, Glucose 102 H, Lactate 1.3, Calcium 9.9, Troponin I < 0.01, C-Reactive Protein 387.5 H 06/13/24 05:53: WBC 15.8 H, RBC 3.49 L, Hgb 10.2 L, Hct 30.1 L, MCV 86.2, MCH 29.2, MCHC 33.9, RDW 12.9, Plt Count 202, MPV 9.7, Neut % (Auto) 77.7, Lymph % (Auto) 13.9, [place] % (Auto) 7.5, Eos % (Auto) 0.1, Baso % (Auto) 0.1, Neut # (Auto) 12.3 H, Lymph # (Auto) 2.2, [place] # (Auto) 1.2 H, Eos # (Auto) 0.0, Baso # (Auto) 0.0, Sodium 128 L, Potassium 3.0 L, Chloride 94 L, Carbon Dioxide 25, Anion Gap 12.0, BUN 15, Creatinine 0.80, Estimated Creat Clear 58, Estimated GFR 70, Est GFR ( Amer) 84, Glucose 97, Calcium 8.6, Magnesium 1.8, Total Bilirubin 0.8, AST 39 H, ALT 27, Alkaline Phosphatase 128 H, Total Protein 5.9 L , Albumin 3.1 L, Globulin 2.8, Albumin/Globulin Ratio 1.1 I & O for Labs for Last 24 Hours: Intake & Output 06/10/24 06/11/24 06/12/24 06/13/24 11:59 11:59 11:59 11:59 Output Total 0 / 0 Balance 0 / 0 Weight 168 lb 9.6 oz Constitutional: Present no acute distress Respiratory: Present rales, rhonchi and wheezes Cardiac: Present Reg Rate and Rhythm GI: Present soft; Absent distention or tenderness Extremities: Absent edema Skin: Present intact Neuro: Present alert, awake and oriented x 3 Assessment and Plan *Assessment and plan (1) Pneumonia: Status: Acute Category: Medical Code(s): J18.9 - Pneumonia, unspecified organism (2) History of asthma: Status: Acute Category: Medical Code(s): Z87.09 - Personal history of other diseases of the respiratory system (3) Chronic cough: Status: Acute Category: Medical Code(s): R05.3 - Chronic cough (4) Hearing deficit: Status: Acute Category: Medical Code(s): H91.90 - Unspecified hearing loss, unspecified ear Plan Chest CT showed bilateral perihilar/peripheral ground-glass and bibasilar op acities suspicious for COVID infiltration. Will check a full respiratory panel today and collect a sputum. Potassium and sodium are low. She is on IVF's and has been started on potassium. Pulmonology has been consulted. Will discuss further care with Dr. Orr.
[2024-06-13 08:28] LABS: Bordetella Pertussis Not Detected (NotDetected); Chlamydophila Pneumoniae, PCR Not Detected (NotDetected); Coronavirus 19, PCR Not Detected (NotDetected); Influenza A, PCR Not Detected (NotDetected); Influenza AH1, 2009 Not Detected (NotDetected); Influenza AH1, PCR Not Detected (NotDetected); Influenza AH3,PCR Not Detected (NotDetected); Influenza B, PCR Not Detected (NotDetected); Mycoplasma Pneumoniae, PCR Not Detected (NotDetected); Parainfluenza 1, PCR Not Detected (NotDetected); Parainfluenza 2, PCR Not Detected (NotDetected); Parainfluenza 3, PCR Not Detected (NotDetected); Parainfluenza 4, PCR Not Detected (NotDetected); Respiratory Syncytial Virus Not Detected (NotDetected)
[2024-06-13 08:54] LABS: Lymphocytes % 14 % (10-50); Monocytes % 6 % (2-9); Neutrophils % 80 % (42-76); Platelet Estimate Normal; RBC Morphology Normal; Total Cells Counted 100
[2024-06-13] MEDS: ENOXAPARIN 40MG/0.4ML SYRINGE 40 MG SUBCUT (09:21)
[2024-06-13] MEDS: POTASSIUM CHLORIDE 20MEQ TAB 20 MEQ PO ×3 (09:21→22:05)
[2024-06-13] MEDS: HCTZ 25MG/TRIAMTERENE 37.5MG TABLET 1 EACH PO (09:21)
[2024-06-13] MEDS: D5W/0.45% NaCl w/20mEq KCL 1,000 ML 50 ML IV (09:21)
[2024-06-13] MEDS: KCl 10mEq/100ml 100 ML 100 MEQ IV ×2 (09:21→10:24)
[2024-06-13] MEDS: AMLODIPINE 5MG TABLET 5 MG PO (09:21)
--- NOTE | 2024-06-13 09:26 | EXP.PULM.CON ---
History of Present Illness History of present illness: Ms. Benavides is a 78-year-old male current [id number] smoking asthma greater than 15 years old carries a diagnosis of asthma allergic rhinitis currently on Breo inhaler receiving allergy shots by allergy neurology physicians admitted to the hospital with worsening respiratory distress nonresolving cough and subjective fevers and pulmonary was called for further evaluation and management. Patient admits improvement in her symptoms in her cough arounf February after started receiving allergy shots. Admits episode of worsening respiratory distress early May diagnosed with pneumonia status post antibiotics and steroids. Improving respiratory distress however still complaining of cough and productive phlegm though improved presented to the ER and was given another rounds of antibiotics steroids steroids and mid-May. Despite patient continued to improving symptoms with respect to respiratory distress she still complains of cough with scant productive phlegm which is also improving as per the patient. Patient also admits decreased appetite and weight loss around 15 to 20 pounds in the last 4 weeks. She also admits subjective fevers, Tmax of 101 last checked around mid May 2024. [facility] Disclaimer: The information contained in this section may have been updated after the patient was seen, as this information can be updated by other users. Medical History GERD (gastroesophageal reflux disease) Hearing deficit Pneumonia History of asthma Chronic cough Allergic rhinitis Surgical History History of appendectomy History of cholecystectomy History of hysterectomy History of section Family History Other Breast cancer Hypertension Social History (Updated 06/12/24 @ 18:33 by Shaunna Ortiz, MANFRED) Smoking Status: Former smoker smoking status stop date: 1993 alcohol intake: never substance use type: denies use current occupational status: unemployed Travel in the last 8 weeks: Inside the [place] Have you lived/traveled outside US in past 30 days?: No Contact w/someone who lives/traveled outside US past 30 days?: No Exposure to someone with infectious disease in past 14 days?: No Do you have a fever (greater than 100.4 F or 38 C)?: No Have you tested positive for COVID-19: No Exposed to someone with COVID-19 in past 14 days?: No Do you have a sore throat?: No Do you have a cough?: Yes Do you have any weakness?: No Are you experiencing any nausea/vomitting?: No Do you have any diarrhea?: No Are you experiencing any unusual bleeding?: No Do you have any muscle aches/pain?: No Do you have any abdominal pain?: No Are you experiencing loss of taste or smell?: No Review of Systems Constitutional Constitutional: Reports fatigue, Denies headache(s), Reports poor appetite and Reports lethargy Eyes Eyes: Denies eye discharge, Denies dry eyes, Denies irritation and Denies itchy eyes ENT Ears, Nose, Mouth, and Throat: Reports abnormal hearing, Denies headache(s), Denies lip swelling and Denies throat swelling *Cardiovascular Cardiovascular: Reports dyspnea and Reports dyspnea on exertion *Respiratory Respiratory: Reports change in phlegm color, Reports chest congestion, Reports cough, Reports dyspnea, Reports dyspnea on exertion, Reports excessive phlegm production, Denies hemoptysis, Denies pain on inspiration, Denies pain with cough and Reports wheezing *Gastrointestinal Gastrointestinal: Denies abdominal pain, Denies belching and Denies cramping *Musculoskeletal Musculoskeletal: Reports back pain, Reports myalgias and Reports other (No small joint swelling or Pain) *Neurologic Neurologic: Reports system reviewed and no additional complaints, except as documented, Reports abnormal hearing, Denies behavioral changes and Denies headache(s) Psychiatric Psychiatric: Denies behavioral changes Endocrine Endocrine: Reports fatigue and Denies heat intolerance Hematologic/Lymphatic Hematologic/Lymphatic: Denies easy bleeding and Denies lymphadenopathy Allergic/Immunologic Allergic/Immunologic: Denies itchy eyes, Denies lip swelling, Denies throat swelling and Reports wheezing Pulmonology Exam Inpatient Vital signs and Labs for Last 24 Hours: Temp Pulse Resp BP Pulse Ox O2 Del Method 98.8 F 89 16 112/61 95 Room Air 06/13/24 08:00 06/13/24 08:00 06/13/24 08:00 06/13/24 08:00 06/13/24 08:00 06/13/24 08:00 Laboratory Results - last 24 hr 06/12/24 18:53: ESR 23, Sodium 129 L, Potassium 3.2 L, Chloride 90 L, Carbon Dioxide 26, Anion Gap 16.2 H, BUN 18 H, Creatinine 0.90, Estimated Creat Clear 58, Estimated GFR 61, Est GFR ( Amer) 74, Glucose 102 H, Lactate 1.3, Calcium 9.9, Troponin I < 0.01, C-Reactive Protein 387.5 H 06/13/24 05:53: WBC 15.8 H, RBC 3.49 L, Hgb 10.2 L, Hct 30.1 L, MCV 86.2, MCH 29.2, MCHC 33.9, RDW 12.9, Plt Count 202, MPV 9.7, Neut % (Auto) 77.7, Lymph % (Auto) 13.9, [place] % (Auto) 7.5, Eos % (Auto) 0.1, Baso % (Auto) 0.1, Neut # (Auto) 12.3 H, Lymph # (Auto) 2.2, [place] # (Auto) 1.2 H, Eos # (Auto) 0.0, Baso # (Auto) 0.0, Total Counted 100, Neutrophils % (Manual) 80 H, Lymphocytes % (Manual) 14, Monocytes % (Manual) 6, Platelet Estimate Normal, RBC Morphology Normal, Sodium 128 L, Potassium 3.0 L, Chloride 94 L, Carbon Dioxide 25, Anion Gap 12.0, BUN 15, Creatinine 0.80, Estimated Creat Clear 58, Estimated GFR 70, Est GFR ( Amer) 84, Glucose 97, Calcium 8.6, Magnesium 1.8, Total Bilirubin 0.8, AST 39 H, ALT 27, Alkaline Phosphatase 128 H, Total Protein 5.9 L, Albumin 3.1 L, Globulin 2.8, Albumin/Globulin Ratio 1.1 I & O for Labs for Last 24 Hours: Intake & Output 06/10/24 06/11/24 06/12/24 06/13/24 23:59 23:59 23:59 23:59 Output Total 0 / 0 0 / 0 Balance 0 / 0 0 / 0 Weight 170 lb 7 oz 168 lb 9.6 oz Constitutional: Present moderate distress Head: Present normocephalic and atraumatic ENT: Present normal exam, normal oropharynx and mucous membranes moist Neck: Present normal inspection and full ROM Respiratory: Present respiratory distress and able to speak in complete sentences; Absent prolonged expiratory phase, rhonchi, wheezes, crackles or diminished air movement Cardiac: Present S1/S2, Tachycardia and radial pulses present GI: Present soft and distention; Absent tenderness or guarding Rectal (female): Present deferred (female): Present deferred Skin: Present intact; Absent cyanosis or jaundice Neuro: Present alert, awake and oriented x 3 Extremities: Present normal inspection; Absent clubbing or cyanosis Psychiatric: Present normal affect and cooperative Meds Home Medications and Allergies Home Medications ?Medication ?Instructions ?Recorded ?Confirmed ?Type pantoprazole 40 mg tablet,delayed 40 mg PO DAILY 01/23/23 06/12/24 History release cetirizine 10 mg tablet (Zyrtec) 10 mg PO DAILY 06/12/24 06/12/24 History fluticasone furoate 100 1 inh inhalation BID 06/12/24 06/12/24 History mcg-vilanterol 25 mcg/dose inhalation powder (Breo Ellipta) triamterene 37.5 1 tab PO DAILY 06/12/24 06/12/24 History mg-hydrochlorothiazide 25 mg tablet albuterol sulfate 90 mcg/actuation 2 puff inhalation Q4HP PRN 06/13/24 06/13/24 History aerosol inhaler Shortness Of Breath Or Wheezing amlodipine 5 mg tablet 5 mg PO DAILY 06/13/24 06/13/24 History montelukast 10 mg tablet 10 mg PO HS 06/13/24 06/13/24 History New Prescriptions to Start Prescriptions: Allergies Allergy/AdvReac Type Severity Reaction Status Date / Time No Known Allergies Allergy Unverified 03/20/23 15:39 Results Laboratory Findings 06/13/24 05:53 06/13/24 05:53 Abnormal lab findings: Abnormal Labs 06/12/24 06/13/24 18:53 05:53 WBC 15.8 H RBC 3.49 L Hgb 10.2 L Hct 30.1 L Neut # (Auto) 12.3 H [place] # (Auto) 1.2 H Neutrophils % (Manual) 80 H Sodium 129 L 128 L Potassium 3.2 L 3.0 L Chloride 90 L 94 L Anion Gap 16.2 H BUN 18 H Glucose 102 H AST 39 H Alkaline Phosphatase 128 H C-Reactive Protein 387.5 H Total Protein 5.9 L Albumin 3.1 L Assessment and Plan *Assessment and plan (1) Pneumonia: Status: Acute Category: Medical Code(s): J18.9 - Pneumonia, unspecified organism Plan Ms. Benavides is a 78-year-old male current [id number] smoking asthma greater than 15 years old carries a diagnosis of asthma allergic rhinitis currently on Breo inhaler receiving allergy shots by allergy neurology physicians admitted to the hospital with worsening respiratory distress nonresolving cough and subjective fevers and pulmonary was called for further evaluation and management. Patient admits improvement in her symptoms in her cough arounf February after started receiving allergy shots. Admits episode of worsening respiratory distress early May diagnosed with pneumonia status post antibiotics and steroids. Improving respiratory distress however still complaining of cough and productive phlegm though improved presented to the ER and was given another rounds of antibiotics steroids steroids and mid-May. Despite patient continued to improving symptoms with respect to respiratory distress she still complains of cough with scant productive phlegm which is also improving as per the patient. Patient also admits decreased appetite and weight loss around 15 to 20 pounds in the last 4 weeks. She also admits subjective fevers, Tmax of 101 last checked around mid May 2024. She has been afebrile since admission. Hemodynamically stable. Continue to remain on room air. Chest no significant wheezing appreciated. CT chest upon admission reviewed, showed bilateral patch airspace disease and prominent right lower lobe airspace disease with traction bronchiectasis concerning for organizing pneumonia with no evidence consolidative changes. Neutrophilic predominant leukocytosis. CRP significantly elevated at 387.5. Procalcitonin also elevated at 2.19. Hyponatremia and hypokalemia noted. Comprehensive respiratory viral PCR panel negative. Plan: Continue levofloxacin pending sputum culture results nasal MRSA PCR urine strep and Legionella antigens Initiate prednisone 40 mg daily Trelegy 100 inhaler DuoNebs 4 times daily as needed Follow-up with blood cultures ANDRES screen F/U repeat CRP
[2024-06-13] MEDS: levoFLOXacin 750 MG TABLET PO (09:50)
[2024-06-13 11:45] LABS: Procalcitonin 2.19 ng/mL (0.0-2.0)
[2024-06-13] MEDS: predniSONE 20MG TAB 40 MG PO (13:03)
[2024-06-13 15:36] LABS: Anion Gap 11.5 mEq/L (5-15); Blood Urea Nitrogen 11 mg/dl (7-17); Calcium 8.7 mg/dl (8.4-10.2); Carbon Dioxide 24 mmol/L (22.0-30.0); Chloride 94 mmol/L (98-107); Creatinine Clearance Estimated 58 mL/min (50-200); Estimated Glomerular Filt Rate 70 ml/min (>60); GFR (African American) 84 ML/MIN (>60); Glucose 112 mg/dl (74-100); Potassium 3.5 mmoL/L (3.5-5.1); Sodium 126 mmol/L (136-145)
--- NOTE | 2024-06-13 16:26 | CA_ITS ---
APPROVED REPORT EXAM: Comprehensive 2D, Doppler, and color-flow Echocardiogram Primer Inspector: Zaynab Salmeron RT(R) Ht: 5 ft 3 in Wt: 168lbs BSA: 1.80 BP: 112/61 mmHg Indications: pnuemonia, GERD, HTN, ex smoker, Fatigue, SOB, GERD, Asthma 2D Dimensions LVEF (Stephenson's) 76.40 % F: 54 - 74 LV Volume 45.40 mL F: 46 - 106 LV Volume Index 25.2 mL/m2 F: 29 - 61 EF AP4 72.50 % EF AP2 79.0 % EF BP 76.4 % GL Strain -12.7 % M-Mode Dimensions RVDd 2.58 cm (0.9-2.6) LA Diam 3.25 cm (1.9-4.0) LVDd 3.94 cm (3.5-5.7) LVDs 2.86 cm (3.5-5.7) IVSd 1.03 cm (0.6-1.1) PWd 0.80 cm (0.6-1.1) EF (Teich) 53.90% FS 27.40% EDV (Teich) 67.50 mL ESV (Teich) 31.10 mL LV Diastology E Decel Time 223 (160-240 msec) E/A Ratio 0.6 Mitral Valve MV E Max Pineda. 71.0 (40-130 cm/s) MV A Velocity 118.0 (40-130 cm/s) E/A Ratio 0.60 MV PHT 65.0 ms Left Ventricle The left ventricle is normal size. The left ventricular systolic function is normal. The left ventricular ejection fraction is within the normal range. There is increased LV wall thickness. There is normal LV segmental wall motion. The left ventricular diastolic function is normal. LVEF is 65%. Right Ventricle The right ventricle is normal size. The right ventricular systolic function is normal. Atria The left atrium size is normal. The right atrium size is normal. There is no Doppler evidence of interatrial shunt. Aortic Valve The aortic valve is mildly thickened. There is no aortic valvular stenosis. No aortic regurgitation is present. Mitral Valve The mitral valve is normal in structure. No evidence of mitral valve stenosis. Trace mitral regurgitation. Tricuspid Valve Tricuspid valve is grossly normal in structure and function. Trace tricuspid regurgitation. There is insufficient TR jet to estimate RVSP. Pulmonic Valve The pulmonary valve is normal in structure. Trace pulmonic regurgitation. Great Vessels The aortic root is normal in size. The ascending aorta is normal in size. IVC is normal in size and collapses >50% with inspiration. Pericardium There is no pericardial effusion. Other Information Study Quality: Fair Conclusion Normal biventricular systolic function. No significant valvular stenosis or regurgitation. Electronically signed by : Irasema Lion MD 06/14/2024 21:26:50
[2024-06-13] MEDS: CEFTRIAXONE SODIUM 1 GM in 0.9 % SODIUM CHLORIDE 50 ML IV (17:47)
[2024-06-13] MEDS: MONTELUKAST SODIUM 10MG TAB 10 MG PO (22:05)
[2024-06-13] MEDS: PANTOPRAZOLE 40MG TABLET 40 MG PO (22:05)
[2024-06-14] VITALS (8 sets, daily range): BP systolic 112–139; BP diastolic 58–85; PULSE 78–95; RESP 16–20; TEMP 36.5–37.1; O2SAT 93–96
--- NOTE | 2024-06-14 04:16 | PC.NURSE ---
Pt continues to receive antibiotic and fluid therapy and has tolerated it well. Pt denies pain but admits to SOB with exertion. Pt O2 saturation remains above 90% on room air. Pt has a productive cough and lung sounds remain somewhat diminished. Pt has had no acute changes this shift and denies pain and needs.
[2024-06-14] MEDS: D5W/0.45% NaCl w/20mEq KCL 1,000 ML 50 ML IV (04:34)
[2024-06-14 06:10] LABS: Basophils % 0.2 % (0.1-2.0); Eosinophils % 0.2 % (0.1-12.0); Hematocrit 29.3 % (37.0-47.0); Hemoglobin 9.8 g/dL (12.2-16.2); Lymphocytes # 1.6 K/mm3 (0.7-4.5); Lymphocytes % 12.6 % (10-50); Mean Corpuscular HGB Conc 33.4 g/dL (31.8-35.4); Mean Corpuscular Hemoglobin 28.9 pg (27.0-31.2); Mean Corpuscular Volume 86.4 fl (81-99); Mean Platelet Volume 9.9 fl (7.4-10.4); Monocytes % 7.7 % (1.7-9.3); Neutrophils # 9.8 K/mm3 (1.8-7.8); Neutrophils % 78.5 % (37.0-80.0); Platelet Count 210 K/mm3 (142-424); Red Blood Count 3.39 M/mm3 (4.20-5.40); Red Cell Distribution Width 12.9 % (11.5-17.5); White Blood Count 12.5 K/mm3 (4.8-10.8)
[2024-06-14 06:54] LABS: Albumin Level 3.3 g/dl (3.5-5.0); Chloride 100 mmol/L (98-107); Potassium 4.1 mmoL/L (3.5-5.1); Sodium 131 mmol/L (136-145)
[2024-06-14 06:57] LABS: Alanine Aminotransferase 62 U/L (12-78); Albumin/Globulin Ratio 1.2 (1.1-1.8); Alkaline Phosphatase 132 U/L (38-126); Anion Gap 10.1 mEq/L (5-15); Aspartate Amino Transferase 91 U/L (14-36); Bilirubin,Total 0.6 mg/dl (0.2-1.3); Blood Urea Nitrogen 8 mg/dl (7-17); Calcium 8.9 mg/dl (8.4-10.2); Carbon Dioxide 25 mmol/L (22.0-30.0); Creatinine Clearance Estimated 58 mL/min (50-200); Estimated Glomerular Filt Rate 97 ml/min (>60); GFR (African American) 118 ML/MIN (>60); Globulin 2.8 g/dL (1.3-3.2); Glucose 104 mg/dl (74-100); Total Protein,Serum 6.1 g/dl (6.3-8.2)
[2024-06-14 07:31] LABS: C-Reactive Protein 291.7 mg/L (0-4)
[2024-06-14] MEDS: AMLODIPINE 5MG TABLET 5 MG PO (08:15)
[2024-06-14] MEDS: HCTZ 25MG/TRIAMTERENE 37.5MG TABLET 1 EACH PO (08:15)
[2024-06-14] MEDS: ENOXAPARIN 40MG/0.4ML SYRINGE 40 MG SUBCUT (08:16)
[2024-06-14] MEDS: predniSONE 20MG TAB 40 MG PO (08:16)
--- NOTE | 2024-06-14 11:11 | PC.NURSE ---
SPOKE WITH DR. MOSQUERA ON THE PHONE AND HE SAID THAT PT IS CLEARED FROM A PULMONOLOGY STANDPOINT
[2024-06-14] MEDS: levoFLOXacin 750 MG TABLET PO (11:37)
--- NOTE | 2024-06-14 12:28 | EXP.ACUTE.PN ---
Subjective *Date: 06/14/24 *Time: 12:28 Interval history: She definitely feels better. Her children are visiting with her today. She is on room air with O2 saturation 94%. Hemoglobin has declined to 9.5 probably with hydration. White count is still elevated. She is moving air better and in no respiratory distress. Medical Exam Vital signs and Labs for Last 24 Hours: Vital Signs Temp Pulse Pulse Resp BP Pulse Ox O2 Del Method 06/14/24 12:00 97.7 F 95 H 18 138/68 95 Room Air 06/14/24 09:00 Room Air 06/14/24 08:00 98.1 F 88 17 112/60 94 L Room Air 06/14/24 08:00 Room Air 06/14/24 06:57 Room Air 06/14/24 05:00 Room Air 06/14/24 04:00 98.5 F 78 17 113/85 94 L 06/14/24 02:59 Room Air 06/14/24 01:00 Room Air 06/14/24 00:00 98.5 F 90 16 126/58 L 93 L Room Air 06/13/24 23:00 Room Air 06/13/24 21:00 Room Air 06/13/24 20:00 Room Air 06/13/24 20:00 98.2 F 88 18 130/67 95 Room Air 06/13/24 16:16 Room Air 06/13/24 16:00 98.0 F 105 H 18 152/79 H 94 L Room Air 06/13/24 13:06 78 06/13/24 13:06 77 Intake and Output 06/14/24 06/14/24 06/14/24 03:59 11:59 19:59 Intake Total 490 / 3400 2270 / 3400 Output Total 0 / 0 0 / 0 Balance 490 / 3400 2270 / 3400 Intake: Intake, Oral Amount 240 / 750 270 / 750 Intake, Total IV Amount 250 / 2650 2000 / 2650 D5W/0.45% NaCl w/20mEq KCL 1, 250 / 2650 2000 / 2650 000 ml @ 50 mls/hr IV .Q20H [facility] Rx#:[id number] Output: Output, Urine Amount 0 / 0 0 / 0 Other: Number of Unmeasured Voids 1 1 Weight 169 lb 11.2 oz Laboratory Results - last 24 hr 06/13/24 15:12: Sodium 126 L, Potassium 3.5, Chloride 94 L, Carbon Dioxide 24, Anion Gap 11.5, BUN 11 D, Creatinine 0.80, Estimated Creat Clear 58, Estimated GFR 70, Est GFR ( Amer) 84, Glucose 112 H, Calcium 8.7 06/14/24 06:00: WBC 12.5 H, RBC 3.39 L, Hgb 9.8 L, Hct 29.3 L, MCV 86.4, MCH 28.9, MCHC 33.4, RDW 12.9, Plt Count 210, MPV 9.9, Neut % (Auto) 78.5, Lymph % (Auto) 12.6, [place] % (Auto) 7.7, Eos % (Auto) 0.2, Baso % (Auto) 0.2, Neut # (Auto) 9.8 H, Lymph # (Auto) 1.6, [place] # (Auto) 1.0, Eos # (Auto) 0.0, Baso # (Auto) 0.0, Sodium 131 L, Potassium 4.1, Chloride 100, Carbon Dioxide 25, Anion Gap 10.1, BUN 8 D, Creatinine 0.60 D, Estimated Creat Clear 58, Estimated GFR 97, Est GFR ( Amer) 118 D, Glucose 104 H, Calcium 8.9, Total Bilirubin 0.6, AST 91 H D, ALT 62 D, Alkaline Phosphatase 132 H, C-Reactive Protein 291.7 H, Total Protein 6.1 L, Albumin 3.3 L, Globulin 2.8, Albumin/Globulin Ratio 1.2 I & O for Labs for Last 24 Hours: Intake & Output 06/12/24 06/13/24 06/14/24 06/15/24 11:59 11:59 11:59 11:59 Intake Total 200 / 200 3400 / 3400 Output Total 0 / 0 0 / 0 Balance 200 / 200 3400 / 3400 Weight 168 lb 9.6 oz 169 lb 11.2 oz Microbiology Reports for the Last 24 Hours: Microbiology 06/12/24 18:53 Blood Blood Culture - Preliminary NO GROWTH AFTER 24 HOURS 06/12/24 18:53 Blood Blood Culture - Preliminary NO GROWTH AFTER 24 HOURS 06/13/24 10:25 Sputum - Expectorated Sputum Gram Stain - Final Head: Present normocephalic Neck: Present full ROM Respiratory: Present decreased breath sounds (But moving air better.), rales (Some) and rhonchi (Some); Absent respiratory distress Cardiac: Present Reg Rate and Rhythm GI: Present soft; Absent tenderness Rectal (female): Present deferred (female): Present deferred Extremities: Absent edema Skin: Present intact Neuro: Present Cranial Nerve 2-12 Intact (Hearing deficit), alert and oriented x 3 Assessment and Plan *Assessment and plan (1) Pneumonia: Status: Acute Category: Medical Code(s): J18.9 - Pneumonia, unspecified organism (2) History of asthma: Status: Acute Category: Medical Code(s): Z87.09 - Personal history of other diseases of the respiratory system (3) Chronic cough: Status: Acute Category: Medical Code(s): R05.3 - Chronic cough (4) Anemia: Status: Acute Category: Medical Code(s): D64.9 - Anemia, unspecified Plan Continue present regimen. I do feel that there is underlying pulmonary disease that remains to be delineated. Pulmonary consultation is appreciated. Saline lock IV.
[2024-06-14 13:43] LABS: Hemoglobin A1C 5.9 % (4.0-6.0)
--- NOTE | 2024-06-14 16:56 | PC.NURSE ---
pt a&ox4. tolerating ra with sats >90%. lung sounds diminished. pt has ambulated independently in the room with no complaints of soa or pain. pt given steroids and other medications per mar this shift. fluids d/c per Dr. Orr. pt re educated on the use on incentive spirometer this shift and verbalized/ demonstrated understanding. no needs or complaints at this time. call light within reach.
[2024-06-14 17:08] LABS: Anti-Centromere B Abs Charge YES; Anti-Centromere B Antibodies <0.2 AI (0.0-0.9); Anti-DNA (DS) Ab Charge YES; Anti-DNA (DS) Ab Qn <1 IU/mL (0-9); Anti-Jo-1 <0.2 AI (0.0-0.9); Anti-Jo-1 Charge YES; Antichromatin Abs Charge YES; Antichromatin Antibodies <0.2 AI (0.0-0.9); Antinuclear Antibodies (ANA) Positive (Negative); Antiscleroderma-70 Abs Charge YES; Antiscleroderma-70 Antibodies <0.2 AI (0.0-0.9); RNP Antibodies 1.1 AI (0.0-0.9); RNP Antibodies Charge YES; Sjogren's Anti-SS-A <0.2 AI (0.0-0.9); Sjogren's Anti-SS-A Ab Charge YES; Sjogren's Anti-SS-B <0.2 AI (0.0-0.9); Sjogren's Anti-SS-B Ab Charge YES; Smith Antibodies Charge YES
[2024-06-14] MEDS: CEFTRIAXONE SODIUM 1 GM in 0.9 % SODIUM CHLORIDE 50 ML IV (18:16)
[2024-06-14] MEDS: POTASSIUM CHLORIDE 20MEQ TAB 20 MEQ PO (20:52)
[2024-06-14] MEDS: PANTOPRAZOLE 40MG TABLET 40 MG PO (20:52)
[2024-06-14] MEDS: MONTELUKAST SODIUM 10MG TAB 10 MG PO (20:52)
[2024-06-15 03:51] VITALS: BP 128/67; PULSE 81; RESP 17; TEMP 36.6; O2SAT 97; BMI 30.7
--- NOTE | 2024-06-15 03:52 | PC.NURSE ---
Patient is alert and oriented x4. Patient was observed to have eyes closed, respirations even and unlabored on room air, and no apparent distress for the majority of the night. She has not had any complaints this shift other than an intermittently, productive cough. During auscultation of her lungs, bilateral crackles (anteriorly/posteriorly) could be heard. Auscultation of her heart and bowels were within normal findings. Vital signs have been stable. Scheduled medications were administered as appropriately per MAR. Patient has been ambulating independently in her room/to the bathroom without difficulties. She stated that her last bowel movement occurred this past morning. She has been tolerating her cardiac diet. At this time, the patient is resting in bed. No acute changes noted thus far. Call light within reach.
[2024-06-15 06:50] LABS: Basophils % 0.3 % (0.1-2.0); Eosinophils % 0.1 % (0.1-12.0); Hematocrit 32.9 % (37.0-47.0); Lymphocytes % 14.8 % (10-50); Mean Corpuscular HGB Conc 32.8 g/dL (31.8-35.4); Mean Corpuscular Hemoglobin 28.8 pg (27.0-31.2); Mean Corpuscular Volume 87.7 fl (81-99); Mean Platelet Volume 9.6 fl (7.4-10.4); Monocytes # 0.8 K/mm3 (0.1-1.0); Monocytes % 5.8 % (1.7-9.3); Neutrophils # 10.5 K/mm3 (1.8-7.8); Neutrophils % 77.6 % (37.0-80.0); Platelet Count 310 K/mm3 (142-424); Red Blood Count 3.75 M/mm3 (4.20-5.40); White Blood Count 13.6 K/mm3 (4.8-10.8)
[2024-06-15 07:03] LABS: Hemoglobin 10.8 g/dL (12.2-16.2)
[2024-06-15 07:15] LABS: Anion Gap 10.4 mEq/L (5-15); Blood Urea Nitrogen 11 mg/dl (7-17); Carbon Dioxide 28 mmol/L (22.0-30.0); Chloride 100 mmol/L (98-107); Creatinine Clearance Estimated 59 mL/min (50-200); Estimated Glomerular Filt Rate 81 ml/min (>60); GFR (African American) 98 ML/MIN (>60); Glucose 95 mg/dl (74-100); Potassium 4.4 mmoL/L (3.5-5.1); Sodium 134 mmol/L (136-145)
[2024-06-15 07:17] LABS: C-Reactive Protein 198.9 mg/L (0-4)
[2024-06-15 08:00] VITALS: BP 133/86; PULSE 86; RESP 17; TEMP 36.6; O2SAT 94
[2024-06-15] MEDS: ENOXAPARIN 40MG/0.4ML SYRINGE 40 MG SUBCUT (08:40)
[2024-06-15] MEDS: predniSONE 20MG TAB 40 MG PO (08:40)
[2024-06-15] MEDS: HCTZ 25MG/TRIAMTERENE 37.5MG TABLET 1 EACH PO (08:41)
[2024-06-15] MEDS: AMLODIPINE 5MG TABLET 5 MG PO (08:41)
[2024-06-15] MEDS: POTASSIUM CHLORIDE 20MEQ TAB 20 MEQ PO ×3 (08:41→20:20)
--- NOTE | 2024-06-15 08:53 | EXP.PHA.PN ---
Subjective *Date: 06/15/24 *Time: 08:53 Medical Exam Vital signs and Labs for Last 24 Hours: Vital Signs Temp Pulse Resp BP Pulse Ox O2 Del Method 06/15/24 08:00 97.8 F 86 17 133/86 94 L Room Air 06/15/24 06:30 Room Air 06/15/24 05:00 Room Air 06/15/24 03:51 97.8 F 81 17 128/67 97 Room Air 06/15/24 03:00 Room Air 06/15/24 01:00 Room Air 06/14/24 23:52 98.7 F 79 17 139/70 95 Room Air 06/14/24 23:00 Room Air 06/14/24 21:00 Room Air 06/14/24 20:00 89 17 95 Room Air 06/14/24 19:18 97.7 F 89 17 128/80 95 Room Air 06/14/24 18:39 Room Air 06/14/24 16:51 Room Air 06/14/24 16:00 97.8 F 79 20 128/66 96 Room Air 06/14/24 15:00 Room Air 06/14/24 13:00 Room Air 06/14/24 12:00 97.7 F 95 H 18 138/68 95 Room Air 06/14/24 11:00 Room Air 06/14/24 09:00 Room Air Intake and Output 06/14/24 06/15/24 06/15/24 23:59 07:59 15:59 Intake Total 100 / 3490 180 / 460 280 / 460 Output Total 0 / 0 0 / 0 0 / 0 Balance 100 / 3490 180 / 460 280 / 460 Intake: Intake, Oral Amount 100 / 1240 180 / 460 280 / 460 Output: Output, Urine Amount 0 / 0 0 / 0 0 / 0 Other: Number of Unmeasured Voids 1 1 Weight 78.562 kg Patient Weight 06/15/24 23:59 Weight 78.562 kg Laboratory Results - last 24 hr 06/13/24 13:45: ANDRES Screen Positive A, ANDRES Comment Comment, MARNI-1 Antibody <0.2, SS-A Antibody <0.2, SS-B Antibody <0.2, Sm (Martinez) Antibody <0.2, DIRECTOR MOTION PICTURE Antibody 1.1 H, Scl-70 Scleroderma Ab <0.2, Double Strand DNA Ab <1, Chromatin Antibody <0.2, Centromere B Antibody <0.2 06/14/24 06:00: Hemoglobin A1c 5.9 06/15/24 05:58: WBC 13.6 H, RBC 3.75 L, Hgb 10.8 L D, Hct 32.9 L, MCV 87.7, MCH 28.8, MCHC 32.8, RDW 13.0, Plt Count 310 D, MPV 9.6, Neut % (Auto) 77.6, Lymph % (Auto) 14.8, [place] % (Auto) 5.8, Eos % (Auto) 0.1, Baso % (Auto) 0.3, Neut # (Auto) 10.5 H, Lymph # (Auto) 2.0, [place] # (Auto) 0.8, Eos # (Auto) 0.0, Baso # (Auto) 0.0, Sodium 134 L, Potassium 4.4, Chloride 100, Carbon Dioxide 28, Anion Gap 10.4, BUN 11 D, Creatinine 0.70, Estimated Creat Clear 59, Estimated GFR 81, Est GFR ( Amer) 98, Glucose 95, Calcium 10.0, C-Reactive Protein 198.9 H I & O for Labs for Last 24 Hours: Intake & Output 06/12/24 06/13/24 06/14/24 06/15/24 23:59 23:59 23:59 23:59 Intake Total 840 / 1330 3310 / 3490 460 / 460 Output Total 0 / 0 0 / 0 0 / 0 0 / 0 Balance 0 / 0 840 / 1330 3310 / 3490 460 / 460 Weight 77.309 kg 76.4 kg 76.975 kg 78.562 kg Microbiology Reports for the Last 24 Hours: Microbiology 06/13/24 10:25 Sputum - Expectorated Sputum Gram Stain - Final 06/13/24 10:25 Sputum - Expectorated Sputum Sputum Culture - Final 06/13/24 13:00 Nose - Nasal MRSA Culture - Final 06/12/24 18:53 Blood Blood Culture - Preliminary NO GROWTH AFTER 48 HOURS 06/12/24 18:53 Blood Blood Culture - Preliminary NO GROWTH AFTER 48 HOURS The patient's infection will respond to the chosen ABx?: Yes (BLOOD CX = NO GROWTH 48 HRS, SPUTUM = NORMAL EZIO, AFEBRILE OVER 24 HR) Is the patient receiving the right drug, dose, and route?: Yes Could a more targeted ABx be ordered?: No How long ABx needed (days)?: 7
[2024-06-15 12:00] VITALS: BP 147/61; PULSE 104; RESP 18; TEMP 36.4; O2SAT 93
[2024-06-15] MEDS: levoFLOXacin 750 MG TABLET PO (12:11)
--- NOTE | 2024-06-15 12:42 | XR_ITS ---
PROCEDURE INFORMATION: Exam: XR Chest Exam date and time: 06/15/2024 1:04 PM Age: 78 years old Clinical indication: Cough; Additional info: Pneumonia TECHNIQUE: Imaging protocol: Radiologic exam of the chest. Views: 2 views. COMPARISON: CT CHEST WO/W CON 06/12/2024 9:01 PM FINDINGS: Lungs: There is redemonstration of bilateral multifocal pneumonia. Pleural spaces: Unremarkable. No pleural effusion. No pneumothorax. Heart/Mediastinum: Unremarkable. No cardiomegaly. Bones/joints: Unremarkable. IMPRESSION: There is redemonstration of bilateral multifocal pneumonia.
--- NOTE | 2024-06-15 13:03 | P.PN_ITS ---
Subjective *Date: 06/15/24 *Time: 13:03 Interval history: Overall she shows improvement. She is moving air better. Rhonchi heard on the left. Oxygen saturations are satisfactory. Repeat chest x-ray today. White blood cell count is still elevated but she is taking steroids. Electrolytes have normalized. Sodium still slightly low. Medical Exam Vital signs and Labs for Last 24 Hours: Vital Signs Temp Pulse Resp BP Pulse Ox O2 Del Method 06/15/24 11:00 Room Air 06/15/24 09:00 Room Air 06/15/24 08:41 Room Air 06/15/24 08:00 97.8 F 86 17 133/86 94 L Room Air 06/15/24 06:30 Room Air 06/15/24 05:00 Room Air 06/15/24 03:51 97.8 F 81 17 128/67 97 Room Air 06/15/24 03:00 Room Air 06/15/24 01:00 Room Air 06/14/24 23:52 98.7 F 79 17 139/70 95 Room Air 06/14/24 23:00 Room Air 06/14/24 21:00 Room Air 06/14/24 20:00 89 17 95 Room Air 06/14/24 19:18 97.7 F 89 17 128/80 95 Room Air 06/14/24 18:39 Room Air 06/14/24 16:51 Room Air 06/14/24 16:00 97.8 F 79 20 128/66 96 Room Air 06/14/24 15:00 Room Air Intake and Output 06/15/24 06/15/24 06/15/24 03:59 11:59 19:59 Intake Total 180 / 1010 280 / 1010 Output Total 0 / 0 0 / 0 Balance 180 / 1010 280 / 1010 0 / 0 Intake: Intake, Oral Amount 180 / 1010 280 / 1010 Output: Output, Urine Amount 0 / 0 0 / 0 Other: Number of Unmeasured Voids 2 1 Number of Bowel Movements 1 Weight 173 lb 3.2 oz Laboratory Results - last 24 hr 06/13/24 13:45: ANDRES Screen Positive A, ANDRES Comment Comment, MARNI-1 Antibody <0.2, SS-A Antibody <0.2, SS-B Antibody <0.2, Sm (Martinez) Antibody <0.2, BANKMAN Antibody 1.1 H, Scl-70 Scleroderma Ab <0.2, Double Strand DNA Ab <1, Chromatin Antibody <0.2, Centromere B Antibody <0.2 06/14/24 06:00: Hemoglobin A1c 5.9 06/15/24 05:58: WBC 13.6 H, RBC 3.75 L, Hgb 10.8 L D, Hct 32.9 L, MCV 87.7, MCH 28.8, MCHC 32.8, RDW 13.0, Plt Count 310 D, MPV 9.6, Neut % (Auto) 77.6, Lymph % (Auto) 14.8, [place] % (Auto) 5.8, Eos % (Auto) 0.1, Baso % (Auto) 0.3, Neut # (Auto) 10.5 H, Lymph # (Auto) 2.0, [place] # (Auto) 0.8, Eos # (Auto) 0.0, Baso # (Auto) 0.0, Sodium 134 L, Potassium 4.4, Chloride 100, Carbon Dioxide 28, Anion Gap 10.4, BUN 11 D, Creatinine 0.70, Estimated Creat Clear 59, Estimated GFR 81, Est GFR ( Amer) 98, Glucose 95, Calcium 10.0, C-Reactive Protein 198.9 H I & O for Labs for Last 24 Hours: Intake & Output 06/13/24 06/14/24 06/15/24 06/16/24 11:59 11:59 11:59 11:59 Intake Total 200 / 200 3400 / 3400 1010 / 1010 Output Total 0 / 0 0 / 0 0 / 0 0 / 0 Balance 200 / 200 3400 / 3400 1010 / 1010 0 / 0 Weight 168 lb 9.6 oz 169 lb 11.2 oz 173 lb 3.2 oz Microbiology Reports for the Last 24 Hours: Microbiology 06/13/24 10:25 Sputum - Expectorated Sputum Gram Stain - Final 06/13/24 10:25 Sputum - Expectorated Sputum Sputum Culture - Final 06/13/24 13:00 Nose - Nasal MRSA Culture - Final 06/12/24 18:53 Blood Blood Culture - Preliminary NO GROWTH AFTER 48 HOURS 06/12/24 18:53 Blood Blood Culture - Preliminary NO GROWTH AFTER 48 HOURS Head: Present normocephalic Neck: Present normal inspection and full ROM Respiratory: Present rhonchi ([place] on the left.), diminished air movement (Improved air movement.) and able to speak in complete sentences; Absent respiratory distress Cardiac: Present Reg Rate and Rhythm GI: Present soft; Absent distention or tenderness Rectal (female): Present deferred (female): Present deferred Extremities: Present normal inspection Skin: Present intact Neuro: Present Cranial Nerve 2-12 Intact (Hearing deficit), oriented x 3 and moves all extremities Assessment and Plan *Assessment and plan (1) Pneumonia: Status: Acute Category: Medical Code(s): J18.9 - Pneumonia, unspecified organism (2) Chronic cough: Status: Acute Category: Medical Code(s): R05.3 - Chronic cough (3) History of asthma: Status: Acute Category: Medical Code(s): Z87.09 - Personal history of other diseases of the respiratory system (4) Hearing deficit: Status: Acute Category: Medical Code(s): H91.90 - Unspecified hearing loss, unspecified ear (5) Anemia: Status: Acute Category: Medical Code(s): D64.9 - Anemia, unspecified Plan Microbiology is reviewed and nothing is diagnostic. Pulmonary follow-up tomorrow. Possible discharge.
[2024-06-15 16:00] VITALS: BP 120/61; PULSE 81; RESP 17; TEMP 36.5; O2SAT 96
[2024-06-15] MEDS: CEFTRIAXONE SODIUM 1 GM in 0.9 % SODIUM CHLORIDE 50 ML IV (18:16)
[2024-06-15 20:00] VITALS: BP 137/69; PULSE 86; RESP 16; TEMP 36.6; O2SAT 97
[2024-06-15] MEDS: PANTOPRAZOLE 40MG TABLET 40 MG PO (20:20)
[2024-06-15] MEDS: MONTELUKAST SODIUM 10MG TAB 10 MG PO (20:20)
[2024-06-16] VITALS: BP 136/69; PULSE 73; RESP 17; TEMP 36.7; O2SAT 95
--- NOTE | 2024-06-16 03:26 | PC.NURSE ---
Patient is alert and oriented x4. Patient was observed to have eyes closed, respirations even and unlabored on room air, and no apparent distress for the majority of the night. She has not had any complaints this shift, but she still reports having an intermittently, productive cough. During auscultation of her lungs, crackles (anteriorly/posteriorly) could be heard primarily in the bases, bilaterally; diminished lung sounds were heard throughout. Auscultation of her heart and bowels within normal findings. Vital signs remain stable. Scheduled medications administered as appropriately per MAR. Patient continues to ambulate independently in her room/to the bathroom without any difficulties. Fresh ice water was given this shift. Patient stated that her appetite continues to gradually improve. She continues to use the incentive spirometer efficiently at the bedside. At this time, the patient is resting in bed. No acute changes noted thus far. Call light within reach.
[2024-06-16 04:00] VITALS: BP 128/68; PULSE 79; RESP 17; TEMP 36.4; O2SAT 93; BMI 30.5
[2024-06-16 07:28] LABS: C-Reactive Protein 87.5 mg/L (0-4)
[2024-06-16 08:00] VITALS: BP 127/64; PULSE 90; RESP 17; TEMP 36.4; O2SAT 94
--- NOTE | 2024-06-16 08:26 | EXP.ACUTE.PN ---
Subjective *Date: 06/16/24 *Time: 08:34 Interval history: Patient states she is feeling better today. She sleeps poorly at 1 hour intervals. She is able to eat better. She ambulates to the bathroom independently without problems. She continues with a frequent nonproductive cough. She denies pain. She has been able to eat better. She is voiding QS and bowels have moved. Repeat chest x-ray from 06/15/2024 reveals redemonstration of bilateral multifocal pneumonia. Medical Exam Vital signs and Labs for Last 24 Hours: Vital Signs Temp Pulse Resp BP Pulse Ox O2 Del Method 06/16/24 08:00 97.5 F L 90 17 127/64 94 L Room Air 06/16/24 06:35 Room Air 06/16/24 05:00 Room Air 06/16/24 04:00 97.6 F 79 17 128/68 93 L Room Air 06/16/24 03:00 Room Air 06/16/24 01:00 Room Air 06/16/24 00:00 98.1 F 73 17 136/69 95 Room Air 06/15/24 23:00 Room Air 06/15/24 21:00 Room Air 06/15/24 20:00 86 16 97 Room Air 06/15/24 20:00 97.8 F 86 16 137/69 97 Room Air 06/15/24 18:39 Room Air 06/15/24 17:00 Room Air 06/15/24 16:00 97.7 F 81 17 120/61 96 Room Air 06/15/24 15:00 Room Air 06/15/24 13:00 Room Air 06/15/24 12:00 97.6 F 104 H 18 147/61 H 93 L Room Air 06/15/24 11:00 Room Air 06/15/24 09:00 Room Air 06/15/24 08:41 Room Air Intake and Output 06/15/24 06/16/24 06/16/24 19:59 03:59 11:59 Intake Total 600 / 600 354 / 954 Output Total 0 / 0 0 / 0 0 / 0 Balance 600 / 600 354 / 954 0 / 954 Intake: Intake, Oral Amount 600 / 600 354 / 954 Output: Output, Urine Amount 0 / 0 0 / 0 0 / 0 Other: Number of Unmeasured Voids 1 1 1 Number of Bowel Movements 1 Weight 172 lb 4.8 oz Patient Weight 06/16/24 11:59 Weight 172 lb 4.8 oz Laboratory Results - last 24 hr 06/16/24 06:35: C-Reactive Protein 87.5 H D I & O for Labs for Last 24 Hours: Intake & Output 06/13/24 06/14/24 06/15/24 06/16/24 11:59 11:59 11:59 11:59 Intake Total 200 / 200 3400 / 3400 1010 / 1010 954 / 954 Output Total 0 / 0 0 / 0 0 / 0 0 / 0 Balance 200 / 200 3400 / 3400 1010 / 1010 954 / 954 Weight 168 lb 9.6 oz 169 lb 11.2 oz 173 lb 3.2 oz 172 lb 4.8 oz Microbiology Reports for the Last 24 Hours: Microbiology 06/13/24 10:25 Sputum - Expectorated Sputum Gram Stain - Final 06/13/24 10:25 Sputum - Expectorated Sputum Sputum Culture - Final 06/13/24 13:00 Nose - Nasal MRSA Culture - Final Constitutional: Present no acute distress Comment:: Sitting up in bedside chair and has completed her breakfast. She appears most comfortable. Respiratory: Present crackles (Crackles in bilateral bases greater on the right up to mid lung. Posteriorly.) Cardiac: Present Reg Rate and Rhythm GI: Present soft and normal bowel sounds; Absent distention Extremities: Present normal inspection; Absent tenderness, edema or calf tenderness Neuro: Present alert, awake and oriented x 3 Assessment and Plan *Assessment and plan (1) Pneumonia: Status: Acute Category: Medical Code(s): J18.9 - Pneumonia, unspecified organism (2) Chronic cough: Status: Acute Category: Medical Code(s): R05.3 - Chronic cough (3) History of asthma: Status: Acute Category: Medical Code(s): Z87.09 - Personal history of other diseases of the respiratory system (4) Hearing deficit: Status: Acute Category: Medical Code(s): H91.90 - Unspecified hearing loss, unspecified ear (5) Anemia: Status: Acute Category: Medical Code(s): D64.9 - Anemia, unspecified Plan Continue with current care. No improvement in chest x-ray. Pulmonology to follow.
[2024-06-16] MEDS: POTASSIUM CHLORIDE 20MEQ TAB 20 MEQ PO ×2 (08:46→12:34)
[2024-06-16] MEDS: HCTZ 25MG/TRIAMTERENE 37.5MG TABLET 1 EACH PO (08:46)
[2024-06-16] MEDS: AMLODIPINE 5MG TABLET 5 MG PO (08:46)
[2024-06-16] MEDS: predniSONE 20MG TAB 40 MG PO (08:46)
[2024-06-16] MEDS: ENOXAPARIN 40MG/0.4ML SYRINGE 40 MG SUBCUT (08:46)
--- NOTE | 2024-06-16 09:58 | EXP.PULM.PN ---
Subjective *Date: 06/16/24 *Time: 11:41 Interval history: No acute respiratory events over the weekend. Patient admits stable respiratory symptoms. Pulmonology Exam Inpatient Vital signs and Labs for Last 24 Hours: Temp Pulse Resp BP Pulse Ox O2 Del Method 97.5 F L 90 17 127/64 94 L Room Air 06/16/24 08:00 06/16/24 08:00 06/16/24 08:00 06/16/24 08:00 06/16/24 08:00 06/16/24 08:00 Laboratory Results - last 24 hr 06/16/24 06:35: C-Reactive Protein 87.5 H D Temp Pulse Resp BP Pulse Ox O2 Del Method 98.8 F 89 16 112/61 95 Room Air 06/13/24 08:00 06/13/24 08:00 06/13/24 08:00 06/13/24 08:00 06/13/24 08:00 06/13/24 08:00 Laboratory Results - last 24 hr 06/12/24 18:53: ESR 23, Sodium 129 L, Potassium 3.2 L, Chloride 90 L, Carbon Dioxide 26, Anion Gap 16.2 H, BUN 18 H, Creatinine 0.90, Estimated Creat Clear 58, Estimated GFR 61, Est GFR ( Amer) 74, Glucose 102 H, Lactate 1.3, Calcium 9.9, Troponin I < 0.01, C-Reactive Protein 387.5 H 06/13/24 05:53: WBC 15.8 H, RBC 3.49 L, Hgb 10.2 L, Hct 30.1 L, MCV 86.2, MCH 29.2, MCHC 33.9, RDW 12.9, Plt Count 202, MPV 9.7, Neut % (Auto) 77.7, Lymph % (Auto) 13.9, [place] % (Auto) 7.5, Eos % (Auto) 0.1, Baso % (Auto) 0.1, Neut # (Auto) 12.3 H, Lymph # (Auto) 2.2, [place] # (Auto) 1.2 H, Eos # (Auto) 0.0, Baso # (Auto) 0.0, Total Counted 100, Neutrophils % (Manual) 80 H, Lymphocytes % (Manual) 14, Monocytes % (Manual) 6, Platelet Estimate Normal, RBC Morphology Normal, Sodium 128 L, Potassium 3.0 L, Chloride 94 L, Carbon Dioxide 25, Anion Gap 12.0, BUN 15, Creatinine 0.80, Estimated Creat Clear 58, Estimated GFR 70, Est GFR ( Amer) 84, Glucose 97, Calcium 8.6, Magnesium 1.8, Total Bilirubin 0.8, AST 39 H, ALT 27, Alkaline Phosphatase 128 H, Total Protein 5.9 L, Albumin 3.1 L, Globulin 2.8, Albumin/Globulin Ratio 1.1 I & O for Labs for Last 24 Hours: Intake & Output 06/13/24 06/14/24 06/15/24 06/16/24 23:59 23:59 23:59 23:59 Intake Total 840 / 1330 3310 / 3490 1060 / 1414 354 / 354 Output Total 0 / 0 0 / 0 0 / 0 0 / 0 Balance 840 / 1330 3310 / 3490 1060 / 1414 354 / 354 Weight 168 lb 6.931 oz 169 lb 11.2 oz 173 lb 3.2 oz 172 lb 4.8 oz Intake & Output 06/10/24 06/11/24 06/12/24 06/13/24 23:59 23:59 23:59 23:59 Output Total 0 / 0 0 / 0 Balance 0 / 0 0 / 0 Weight 170 lb 7 oz 168 lb 9.6 oz Microbiology Reports for the Last 24 Hours: Microbiology 06/13/24 10:25 Sputum - Expectorated Sputum Gram Stain - Final 06/13/24 10:25 Sputum - Expectorated Sputum Sputum Culture - Final 06/13/24 13:00 Nose - Nasal MRSA Culture - Final Constitutional: Present moderate distress Head: Present normocephalic and atraumatic ENT: Present normal exam, normal oropharynx and mucous membranes moist Neck: Present normal inspection and full ROM Respiratory: Present respiratory distress and able to speak in complete sentences; Absent prolonged expiratory phase, rhonchi, wheezes, crackles or diminished air movement Cardiac: Present S1/S2, Tachycardia and radial pulses present GI: Present soft and distention; Absent tenderness or guarding Rectal (female): Present deferred (female): Present deferred Skin: Present intact; Absent cyanosis or jaundice Neuro: Present alert, awake and oriented x 3 Extremities: Present normal inspection; Absent clubbing or cyanosis Psychiatric: Present normal affect and cooperative Assessment and Plan *Assessment and plan (1) Pneumonia: Status: Acute Category: Medical Code(s): J18.9 - Pneumonia, unspecified organism Plan Ms. Benavides is a 78-year-old male current [id number] smoking asthma greater than 15 years old carries a diagnosis of asthma allergic rhinitis currently on Breo inhaler receiving allergy shots by allergy neurology physicians admitted to the hospital with worsening respiratory distress nonresolving cough and subjective fevers and pulmonary was called for further evaluation and management. Patient admits improvement in her symptoms in her cough arounf February after started receiving allergy shots. Admits episode of worsening respiratory distress early May diagnosed with pneumonia status post antibiotics and steroids. Improving respiratory distress however still complaining of cough and productive phlegm though improved presented to the ER and was given another rounds of antibiotics steroids steroids and mid-May. Despite patient continued to improving symptoms with respect to respiratory distress she still complains of cough with scant productive phlegm which is also improving as per the patient. Patient also admits decreased appetite and weight loss around 15 to 20 pounds in the last 4 weeks. She also admits subjective fevers, Tmax of 101 last checked around mid May 2024. She has been afebrile since admission. Hemodynamically stable. Continue to remain on room air. Chest no significant wheezing appreciated. CT chest upon admission reviewed, showed bilateral patch airspace disease and prominent right lower lobe airspace disease with traction bronchiectasis concerning for organizing pneumonia with no evidence consolidative changes. Neutrophilic predominant leukocytosis. CRP significantly elevated at 387.5. Procalcitonin also elevated at 2.19. Hyponatremia and hypokalemia noted. Comprehensive respiratory viral PCR panel negative. Interval update: No acute respiratory vents over the weekend. Continue to remain on room air. Neutrophilic predominant leukocytosis relatively stable/slight improvement. CRP continue to improve now at 87.5. Chest x-ray over the weekend improving lower lobe infiltrates especially in the right lower lung ball[place]. CRP improved from 387 upon admission to 87.5 Sputum cultures normal respiratory darryn. Blood cultures no growth at 48 hours. Nasal MRSA PCR negative. ANDRES screen resulted positive with anti-[employer]OR antibody positive. Etiology likely secondary to organizing pneumonia however the possibility of ILD cannot be completely ruled out given her ANDRES resulted positive, though less concerning for focal involvement of the noted interstitial changes on her CT scan Plan: Trelegy 100 inhaler Continue levofloxacin x 7 days Continue prednisone 40 mg daily x 14 days followed by 20 mg daily for 14 days followed by 10 mg daily for 14 days Trelegy 100 inhaler DuoNebs 4 times daily as needed # Thank for involving pulmonary in this patient. Will follow the patient in pulmonary clinic 2 to 4 weeks post discharge
--- NOTE | 2024-06-16 11:50 | EXP.ACUTE.PN ---
Subjective *Date: 06/16/24 *Time: 11:50 Interval history: The patient was seen today in conjunction with Dr. Dennis. She is significantly improved. Her chest x-ray has also improved. Likely she can be discharged today. Pulmonology feels that she should be continued on prednisone since this seems to be affecting improvement in the localized areas of inflammatory pneumonia. She does have a positive ANDRES and this certainly could go along with her protracted course of chronic cough congestion. Chest x-rays and CT were reviewed with Dr. Dennis. These seem to support focal lung disease and not diffuse interstitial lung disease, at this point. Medical Exam Vital signs and Labs for Last 24 Hours: Vital Signs Temp Pulse Resp BP Pulse Ox O2 Del Method 06/16/24 11:00 Room Air 06/16/24 09:00 Room Air 06/16/24 08:00 Room Air 06/16/24 08:00 97.5 F L 90 17 127/64 94 L Room Air 06/16/24 06:35 Room Air 06/16/24 05:00 Room Air 06/16/24 04:00 97.6 F 79 17 128/68 93 L Room Air 06/16/24 03:00 Room Air 06/16/24 01:00 Room Air 06/16/24 00:00 98.1 F 73 17 136/69 95 Room Air 06/15/24 23:00 Room Air 06/15/24 21:00 Room Air 06/15/24 20:00 86 16 97 Room Air 06/15/24 20:00 97.8 F 86 16 137/69 97 Room Air 06/15/24 18:39 Room Air 06/15/24 17:00 Room Air 06/15/24 16:00 97.7 F 81 17 120/61 96 Room Air 06/15/24 15:00 Room Air 06/15/24 13:00 Room Air 06/15/24 12:00 97.6 F 104 H 18 147/61 H 93 L Room Air Intake and Output 06/15/24 06/16/24 06/16/24 19:59 03:59 11:59 Intake Total 600 / 954 354 / 954 Output Total 0 / 0 0 / 0 0 / 0 Balance 600 / 954 354 / 954 0 / 954 Intake: Intake, Oral Amount 600 / 954 354 / 954 Output: Output, Urine Amount 0 / 0 0 / 0 0 / 0 Other: Number of Unmeasured Voids 1 1 1 Number of Bowel Movements 1 Weight 172 lb 4.8 oz Patient Weight 06/16/24 11:59 Weight 172 lb 4.8 oz Laboratory Results - last 24 hr 06/16/24 06:35: C-Reactive Protein 87.5 H D I & O for Labs for Last 24 Hours: Intake & Output 06/13/24 06/14/24 06/15/24 06/16/24 11:59 11:59 11:59 11:59 Intake Total 200 / 200 3400 / 3400 1010 / 1010 954 / 954 Output Total 0 / 0 0 / 0 0 / 0 0 / 0 Balance 200 / 200 3400 / 3400 1010 / 1010 954 / 954 Weight 168 lb 9.6 oz 169 lb 11.2 oz 173 lb 3.2 oz 172 lb 4.8 oz Microbiology Reports for the Last 24 Hours: Microbiology 06/13/24 10:25 Sputum - Expectorated Sputum Gram Stain - Final 06/13/24 10:25 Sputum - Expectorated Sputum Sputum Culture - Final 06/13/24 13:00 Nose - Nasal MRSA Culture - Final Head: Present normocephalic Neck: Present normal inspection Respiratory: Present decreased breath sounds and CTA bilaterally (Definitely improved) Cardiac: Present Reg Rate and Rhythm GI: Present soft; Absent tenderness Rectal (female): Present deferred (female): Present deferred Extremities: Absent edema Skin: Present intact Neuro: Present oriented x 3 Assessment and Plan *Assessment and plan (1) Pneumonia: Status: Acute Category: Medical Code(s): J18.9 - Pneumonia, unspecified organism (2) History of asthma: Status: Acute Category: Medical Code(s): Z87.09 - Personal history of other diseases of the respiratory system (3) Chronic cough: Status: Acute Category: Medical Code(s): R05.3 - Chronic cough (4) Anemia: Status: Acute Category: Medical Code(s): D64.9 - Anemia, unspecified (5) Hearing deficit: Status: Acute Category: Medical Code(s): H91.90 - Unspecified hearing loss, unspecified ear (6) Positive ANDRES (antinuclear antibody): Status: Acute Category: Medical Code(s): R76.8 - Other specified abnormal immunological findings in serum Plan Discharge. Prednisone. Levofloxacin. Trelegy. Follow-up with Dr. Orr. Follow-up with pulmonology.
[2024-06-16] MEDS: levoFLOXacin 750 MG TABLET PO (12:34)
[2024-06-16] MEDS: FLUTICASONE/UMECLIDIN/VILANTER 100/62.5/25MCG INHALER 1 PUFF IH (12:51)
--- NOTE | 2024-06-17 10:38 | SW/DCPLANNER ---
Spoke with patient on the phone. Patient stated that she is doing alot better. Patient stated that she is aware of her upcoming appointments. 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 Patient stated that she has no concerns or questions at this time. Chris Perez
--- NOTE | 2024-06-22 22:36 | P.DS_ITS ---
General Admission date:: 06/12/24 Discharge date: 06/16/24 HPI HPI HPI: 78 yo female presents with cough and congestion. She has underlying lung issues and a chronic cough this been going on for a while. She was on vacation in [place] and was seen in an urgent treatment center on 05/26/2024 and subsequently on 06/01/2024. She has received prescriptions for amoxicillin and azithromycin. She was also treated with prednisone and given cough medication. She is continued with cough and congestion. She did have a period of time where she was feeling better but then it has recurred. She had a fever to 101.9 recently. Her cough has been productive. She feels very weak. The issue with the chronic cough has been going on for months. She started having relief after seeing the underground supervisor and being treated by Dr. Hanna. She thought that her issue there was resolving. Chest x-ray was obtained in the office today and suggest bilateral infiltrates at the bases. With review of her previous chest x-rays there is some similarity to this pattern. She has seen Dr. Dennis, refuge manager, though he has not seen her recently. She has never had a CT scan. She does use an albuterol inhaler periodically. She has been on montelukast prescribed I believe by the underground supervisor. She has longstanding hypertension adequately treated. She was negative for flu and COVID 19 swabs in the office of [facility] Hospital Course Hospital Course Hospital Course: The patient was admitted and started on IV antibiotics. Pulmonology was consulted and a CT of the chest was ordered. The chest CT showed bilateral perihilar/peripheral groundglass and bibasilar opacities suspicious for COVID-19 infiltration. A full respiratory panel was ordered and a sputum was collected. Her potassium and sodium were low and she was started on IV fluids as well as potassium. She was seen in consultation by pulmonology and he recommended continuing Levaquin pending her sputum cultures and initiating prednisone 40 mg daily. Her full respiratory panel was negative. He also initiated a Trelegy inhaler. By 06/15/2024, she was improving. A repeat chest x-ray was ordered. Her electrolytes had normalized. The repeat chest x-ray showed bilateral multifocal pneumonia. The patient CRP did improve. Her sputum culture showed normal respiratory darryn. Her ANDRES screen was positive with a positive anti-BEDSPREAD CUTTER antibody. Pulmonology wanted her to continue her Trelegy and Levaquin for total of 7 days and to continue prednisone 40 mg daily for 14 days, followed by 20 mg daily for 14 days, followed by 10 mg daily for 14 days. The patient was stable to be discharged home and will follow-up with both Dr. Orr and pulmonology. Exam Data for Last 24 hours Vital signs and Labs for Last 24 Hours: Temp Pulse Resp BP Pulse Ox O2 Del Method 97.5 F L 90 17 127/64 94 L Room Air 06/16/24 08:00 06/16/24 08:00 06/16/24 08:00 06/16/24 08:00 06/16/24 08:00 06/16/24 13:00 Narrative: Constitutional Constitutional: no acute distress *Routine HEENT Exam Head: Present normocephalic Eye: Present PERRL; Absent conjunctival icterus ENT: Present mucous membranes moist *Routine Neck Exam Neck: Present supple and full ROM Routine Chest/Breast/Axilla Exam Chest wall: Absent tenderness *Routine Respiratory Exam Respiratory: Present decreased breath sounds, rales (Bibasilar greater on the left), rhonchi (On the left) and able to speak in complete sentences; Absent respiratory distress *Routine Cardiovascular Exam Cardiovascular: Present RRR; Absent murmur or ectopic *Routine Abdominal Exam Abdominal: Present soft; Absent tenderness *Routine Rectal Exam Rectal:: deferred *Routine Genitalia Exam Genitalia:: deferred *Routine Extremities Exam Extremities: Absent edema Routine Back/Spine/Pelvis Exam Back/Spine: Absent CVA tenderness *Routine Skin Exam Skin: Present intact and normal turgor; Absent cyanosis, petechiae, urticaria, jaundice or rash *Routine Neurological Exam Neurological: Present alert, oriented X3, CN II-XII intact and moving all extremities; Absent altered mental status or hearing grossly intact Routine Psychiatric Exam Psychiatric: Present normal affect, normal thought process and cooperative DS: Diagnosis Discharge Diagnosis (1) Pneumonia: Status: Acute Code(s): J18.9 - Pneumonia, unspecified organism (2) History of asthma: Status: Acute Code(s): Z87.09 - Personal history of other diseases of the respiratory system (3) Chronic cough: Status: Acute Code(s): R05.3 - Chronic cough (4) Anemia: Status: Acute Code(s): D64.9 - Anemia, unspecified (5) Hearing deficit: Status: Acute Code(s): H91.90 - Unspecified hearing loss, unspecified ear (6) Positive ANDRES (antinuclear antibody): Status: Acute Code(s): R76.8 - Other specified abnormal immunological findings in serum Meds Home Medications and Allergies Home Medications ?Medication ?Instructions ?Recorded ?Confirmed ?Type pantoprazole 40 mg tablet,delayed 40 mg PO DAILY 01/23/23 06/12/24 History release cetirizine 10 mg tablet (Zyrtec) 10 mg PO DAILY 06/12/24 06/12/24 History triamterene 37.5 1 tab PO DAILY 06/12/24 06/12/24 History mg-hydrochlorothiazide 25 mg tablet albuterol sulfate 90 mcg/actuation 2 puff inhalation Q4HP PRN 06/13/24 06/13/24 History aerosol inhaler Shortness Of Breath Or Wheezing amlodipine 5 mg tablet 5 mg PO DAILY 06/13/24 06/13/24 History montelukast 10 mg tablet 10 mg PO HS 06/13/24 06/13/24 History fluticasone fur. 100 mcg-umeclid 1 inh inhalation DAILY #1 ea 06/16/24 Rx 62.5 mcg-vilant 25 mcg inhalat.powder (Trelegy Ellipta) levofloxacin 750 mg tablet 750 mg PO DAILY #7 tabs 06/16/24 Rx potassium chloride 20 mEq 20 meq PO BID #60 tabs 06/16/24 Rx tablet,extended release prednisone 20 mg tablet 40 mg (2 x 20 mg) PO DAILY #30 tabs 06/16/24 Rx New Prescriptions to Start Prescriptions: hokhfepktet-wohpycdvt-ucquqnol [Trelegy Ellipta] Charanjit Orr levofloxacin Charanjit Orr potassium chloride Charanjit Orr prednisone Charanjit Orr Allergies Allergy/AdvReac Type Severity Reaction Status Date / Time No Known Allergies Allergy Unverified 03/20/23 15:39 Discharge Plan Disposition Patient Disposition: Home Health Service Discharge Order Discharge Orders: Discharge Order (Routine); Ordered 06/16/24 Ordered By: Charanjit Orr Follow up Plan Follow up with: Charanjit Orr MD [Primary Care Provider] - 06/23/24 2:45 pm Prescriptions/Medication Reconciliation: New prednisone 20 mg Tablet 40 mg PO DAILY Qty: 30 1RF potassium chloride 20 mEq tablet extended release 20 meq PO BID Qty: 60 0RF levofloxacin 750 mg tablet 750 mg PO DAILY Qty: 7 0RF Trelegy Ellipta 100-62.5-25 mcg Blister With Device 1 inh inhalation DAILY Qty: 1 3RF Continued pantoprazole 40 mg tablet,delayed release (DR/EC) 40 mg PO DAILY cetirizine [Zyrtec] 10 mg Tablet 10 mg PO DAILY triamterene-hydrochlorothiazid 37.5-25 mg tablet 1 tab PO DAILY Patient Comments: TAKE 1 TABLET BY MOUTH ONCE DAILY IN THE MORNING montelukast 10 mg tablet 10 mg PO HS Patient Comments: TAKE 1 TABLET BY MOUTH ONCE DAILY AT NIGHT albuterol sulfate 90 mcg/actuation HFA aerosol inhaler 2 puff INHALATION Q4HP PRN (Reason: Shortness Of Breath Or Wheezing) Patient Comments: INHALE 2 PUFFS BY MOUTH EVERY 4 TO 6 HOURS (SHORTNESS OF BREATH OR WHEEZING) amlodipine 5 mg tablet 5 mg PO DAILY Patient Comments: TAKE 1 TABLET BY MOUTH ONCE DAILY Discontinued fluticasone furoate-vilanterol [Breo Ellipta] 100-25 mcg/dose blister with device 1 inh INHALATION BID Problem Reconciliation Problems Reviewed?: Yes Patient Discharge Instructions ACTIVITY: Continue current activity DIET: advance to your usual diet Patient Instructions: DI for Pneumonia -- Adult Print Language: Nicaraguan Providers Primary Care Provider: Charanjit Orr Admit Provider: Charanjit Orr Attending Provider: Charanjit Orr
== END 2024-06-16 13:05 | disposition home health service (06) | DRG 194 ==
PROVIDERS: Internal Medicine Pulmonary Disease; Physician Assistant; Admitting Provider Family Medicine; PCP Family Medicine; Visit Provider Family Medicine
DX: J18.9 Pneumonia, unspecified organism (principal); E87.1 Hypo-osmolality and hyponatremia; R05.3 Chronic cough; H91.90 Unspecified hearing loss, unspecified ear; E87.6 Hypokalemia; D64.9 Anemia, unspecified; J45.909 Unspecified asthma, uncomplicated; E66.9 Obesity, unspecified; R63.0 Anorexia; I10 Essential (primary) hypertension; R00.0 Tachycardia, unspecified; Z68.30 Body mass index [BMI] 30.0-30.9, adult; Z79.51 Long term (current) use of inhaled steroids; Z87.891 Personal history of nicotine dependence; Z79.82 Long term (current) use of aspirin; Z79.899 Other long term (current) drug therapy; Z80.3 Family history of malignant neoplasm of breast; Z82.49 Family history of ischemic heart disease and other diseases of the circulatory system; Z90.49 Acquired absence of other specified parts of digestive tract; Z90.79 Acquired absence of other genital organ(s); Z28.39 Other underimmunization status; Z28.20 Immunization not carried out because of patient decision for unspecified reason
CPT/HCPCS: G0379; 36415; 71046; 71270; 80048; 80053; 83036; 83605; 83735; 84145; 84484; 85007; 85025; 85651; 86038; 86140; 86225; 86235; 87040; 87070; 87081; 87205; 87633; 93005; 93306; 94640; J0696; J1650; J3480; J7620; Q9967

== ENCOUNTER 2024-07-17 15:00 | Outpatient (CLI) | payer MEDICARE, SELFPAY ==
--- NOTE | 2024-07-17 15:04 | XR_ITS ---
FINAL REPORT CLINICAL HISTORY: SOA COMPARISON: None FINDINGS: CHEST 2 VIEWS No acute pulmonary density is evident. There is no evidence of effusion or other pleural disease. The mediastinum has a normal appearance. The cardiac silhouette is unremarkable. IMPRESSION: Unremarkable chest exam. Reviewed, Interpreted and Dictated by Charanjit Cutler MD Transcribed by Alba Whalen Authenticated and [facility]
== END 2024-07-17 23:59 | disposition home or self-care (01) ==
LOC: RAD 15:01
PROVIDERS: PCP Family Medicine; Visit Provider Family Medicine
DX: R06.02 Shortness of breath (principal)
CPT/HCPCS: 71046

== ENCOUNTER 2024-09-05 11:36 | Outpatient (CLI) | payer MEDICARE, SELFPAY ==
--- OUTSIDE RECORDS SUMMARY | 2024-09-05 11:38 | XMS_ITS ---
Author Organization Unknown TREATMENT PLAN [facility] Start Date Provider Encounter for Check-up [phone] [facility]
--- NOTE | 2024-09-05 11:39 | XR_ITS ---
FINAL REPORT TECHNIQUE: Chest PA & Lateral CLINICAL HISTORY: BRONCHITIS COMPARISON: 07/17/2024 FINDINGS: 2 views of the chest were performed. The heart size is normal. The mediastinum is within normal limits. There is no acute cardiopulmonary process. There is mild linear scarring in the right infrahilar region. There are no pleural effusions. There is no pneumothorax. The bony thorax appears intact. IMPRESSION: No acute cardiopulmonary process. Reviewed, Interpreted and Dictated by Antwan Chavez MD Transcribed by Ce Padilla Authenticated and . [facility]
== END 2024-09-05 23:59 | disposition home or self-care (01) ==
LOC: RAD 11:37
PROVIDERS: PCP Family Medicine; Visit Provider Physician Assistant
DX: J40 Bronchitis, not specified as acute or chronic (principal)
CPT/HCPCS: 71046

== ENCOUNTER 2024-09-25 08:32 | Outpatient (CLI) | payer MEDICARE, SELFPAY ==
[2024-09-25 09:37] LABS: Basophils % 0.5 % (0.1-2.0); Eosinophils # 0.3 Kmm3 (0.0-0.4); Eosinophils % 4.3 % (0.1-12.0); Hematocrit 40.1 % (37.0-47.0); Hemoglobin 13.1 g/dL (12.2-16.2); Immature Granulocytes # 0.02 10^3uL; Immature Granulocytes % 0.3 %; Lymphocytes # 2.4 K/mm3 (0.7-4.5); Lymphocytes % 32.6 % (10-50); Mean Corpuscular HGB Conc 32.7 g/dL (31.8-35.4); Mean Platelet Volume 9.6 fl (7.4-10.4); Monocytes # 0.7 K/mm3 (0.1-1.0); Monocytes % 9.6 % (1.7-9.3); Neutrophils # 3.9 K/mm3 (1.8-7.8); Neutrophils % 52.7 % (37.0-80.0); Nucleated Red Blood Cells # 0 10^3/uL; Nucleated Red Blood Cells % 0 %; Platelet Count 280 K/mm3 (142-424); Red Blood Count 4.36 M/mm3 (4.20-5.40); Red Cell Distribution Width 12.9 % (11.5-17.5); Red Cell Distribution Width-SD 43.1 fL; White Blood Count 7.4 K/mm3 (4.8-10.8)
[2024-09-25 10:23] LABS: 25-OH Vitamin D, Total 58.5 ng/mL (30-100)
[2024-09-29 04:18] LABS: Immunoglobulin E, Total 3 IU/mL (6-495)
== END 2024-09-25 23:59 | disposition home or self-care (01) ==
PROVIDERS: Internal Medicine Pulmonary Disease; PCP Family Medicine; Visit Provider Nurse Practitioner
DX: R06.09 Other forms of dyspnea (principal); J45.50 Severe persistent asthma, uncomplicated; E55.9 Vitamin D deficiency, unspecified; Z87.891 Personal history of nicotine dependence
CPT/HCPCS: 36415; 82306; 82785; 85025; 86140

== ENCOUNTER 2024-10-02 09:59 | Outpatient (CLI) | payer MEDICARE, SELFPAY | END 2024-10-02 23:59 | disposition home or self-care (01) | LOC: RT 10:00 | PROVIDERS: PCP Family Medicine; Visit Provider Internal Medicine Pulmonary Disease | DX: J44.9 Chronic obstructive pulmonary disease, unspecified (principal) | CPT/HCPCS: 94060; 94618; 94726; 94729 ==

== ENCOUNTER 2025-03-09 09:25 | Outpatient (CLI) | payer MEDICARE, SELFPAY ==
--- OUTSIDE RECORDS SUMMARY | 2019-09-18 13:13 | XMS_ITS | Encounter Summary ---
Author Organization [facility] Address [address] [place] [address] Care Team Providers Care Community Service Coordinator Name Role Phone Parviz Orr MD Primary Care Provider [phone] [phone] Encounter Details Date Type Department Care Team (Late st Contact Info) Description 09/18/2019 1:13 PM EDT Hospital Encounter [facility] PULMONARY & CRITICAL CARE MEDICINE [address] [place] [address] Social History Tobacco Use Types [...] documented as of this encounter Care Teams Community Service Coordinator Relationship Specialty Start Date End Date Parviz Orr MD [address] [facility] [address] [facility] [address] [place] [address] PCP - General Family Medicine 09/18/19 documented as of this encounter
--- OUTSIDE RECORDS SUMMARY | 2021-12-29 11:26 | XMS_ITS | Encounter Summary ---
Author Organization [facility] Address [address] [place] [address] Care Team Providers Care Credit Negotiator Name Role Phone Parviz Orr MD Primary Care Provider +1 [phone] Encounter Details Date Type Department Care Team (Late st Contact Info) Description 12/29/2021 11:26 AM EDT Hospital Encounter [facility] PULMONARY & CRITICAL CARE MEDICINE [address] [place] [address] Social History Tobacco Use Types [...] on filedocumented in this encounter Care Teams Credit Negotiator Relationship Specialty Start Date End Date Parviz Orr MD [address] [facility] [address] [facility] [address] [place] [address] PCP - General Family Medicine 09/18/19 documented as of this encounter
--- OUTSIDE RECORDS SUMMARY | 2025-01-30 07:25 | XMS_ITS ---
[facility] Address [address] [place] [id number] Care Team Providers Care Assayer Name Role Phone Harmony Orr Primary Care Provider REASON FOR VISIT Allgery shot Medications Medication SIG (Take, Route, Frequency, Duration) Notes Start Date End Date Status Pantoprazole Sodium 40 MG Take 1 tablet by mouth once daily for 90 days; Duration: 90 Active Potassium Chloride ER 20 MEQ 1 tablet with food Orally once a day; Duration: 30 days Active Zithromax Z-Moo 250 MG as directed Orall y daily; Duration: 5 days 12/11/2024 Not-Taki ng Promethazine-DM 6.25-15 MG/5ML 5 mL as needed Orally every 6 hrs 12/11/2024 Not-Taking Triamterene-HCTZ 37.5-25 MG 1 tablet in the morning Orally; Duration: 90 days Active amLODIPine Besylate 5 MG Take 1 tablet b y mouth once daily; Duration: 90 days Active Albuterol Sulfate HFA 108 (90 Base) MCG/ACT INHALE 2 PUFFS BY MOUTH 4 TIMES DAILY NEEDED; Duration: 25 Active Trelegy Ellipta 100-62.5-25 MCG/ACT Inhale 1 puff by mouth once daily; Duration: 30 Active Multivitamin - 1 tablet Orally Once a day; Duration: 30 day(s) Active Calcium + Vitamin D3 600-5 MG-MCG 1 tab(s) orally TID Active Problems Problem Type SNOMED Code ICD Code Onset Dates Problem Status W/U Status Risk Notes Problem Allergic rhinitis (91127959) Seasonal allergic rhinitis due to other allergic trigger (J30.89) Active confirmed Encounters Encounter Location Date Provider Diagnosis [facility] [address] [place] [id number] 01/30/2025 Harmony Orr Seasonal allergic rhinitis due to other allergic trigger J30.89 Assessments Encounter Date Diagnosis (ICD Code) Assessment Notes Treatment Notes Treatment Clinical Notes Section Notes 01/30/2025 Seasonal allergic rhinitis due to other allergic trigger (ICD-10 - J30.89) Plan Of Treatment Next Appt Details Provider Name:Harmony Jeffreyisai Griffin er, 03/16/2025 11:00:00 AM, [address], [address], [place], [id number], Medications Administered Medication Instructions Date of Administration Dosage Notes allergy 01/30/2025 0.10 mL allergy 01/30/2025 0.10 mL Progress Notes * SOFIA OWENSDOB: [birth year] (79 yo F)Acc No.[id number]:01/30/2025 Patient: SOFIA RUDOLPH Provider: Harmony Orr M.D. :1945 A ge:79 Y S ex:Female Date:01/30/2025 Address:[address] [place] [address], [place], [id number] Subjective: * Chief Complaints: * 1 . Allgery shot. * Medical History: * Medications: T aking Multivitamin - Tablet 1 tablet Orally Once a day , Taking Calcium + Vitamin D3 600-5 MG-MCG Tablet 1 tab(s) orally TID , Taking Albuterol Sulfate HFA 108 (90 Base) MCG/ACT Aerosol Solution INHALE 2 PUFFS BY MOUTH 4 TIMES DAILY NEEDED , Taking Trelegy Ellipta 100-62.5-25 MCG/ACT Aerosol Powder Breath Activated Inhale 1 puff by mouth once daily , Taking amLODIPine Besylate 5 MG Tablet Take 1 tablet by mouth once daily , Taking Pantoprazole Sodium 40 MG Tablet Delayed Release Take 1 tablet by mouth once daily for 90 days , Taking Potassium Chloride ER 20 MEQ Tablet Extended Release 1 tablet with food Orally once a day , Taking Triamterene-HCTZ 37.5-25 MG Tablet 1 tablet in the morning Orally , Not-Taking Zithromax Z-Moo 250 MG Tablet as directed Orally daily , Not-Taking Promethazine-DM 6.25-15 MG/5ML Syrup 5 mL as needed Orally every 6 hrs , Medication List reviewed and reconciled with the patient Objective: * Vitals: Assessment: * Assessment: 1. S easonal allergic rhinitis due to other allergic trigger - J30.89 (Primary) ? Plan: * Treatment: * Therapeutic Injections: allergy : 0.10 mL (Route: Subcutaneous) given by DEDRICK Lynn on subcutaneus (Seasonal allergic rhinitis due to other allergic trigger) allergy : 0.10 mL (Route: Subcutaneous) given by DEDRICK Lynn on subcutaneus (Seasonal allergic rhinitis due to other allergic trigger) * Procedure Codes: 9 5117 IMMUNOTHERAPY INJECTIONS * Images: Billing Information: * Visit Code: * Procedure Codes: 62417 IMMUNOTHERAPY INJECTIONS. * Electronic signature of Harmony Orr MD on 03/09/2025 at 09:34 AM EDT Sign off status: Pending * Provider: Harmony Orr M.D. Date: 0 01/30/2025 Generated for Ann-Marie zepeda/Bree/Alex on: 1 09:34 AM EDT
--- OUTSIDE RECORDS SUMMARY | 2025-02-02 07:15 | XMS_ITS ---
[facility] Address [address] [place] [id number] Care Team Providers Care Capacitor Repairer Name Role Phone Harmony Orr Primary Care Provider REASON FOR VISIT allergy shot Medications Medication SIG (Take, Route, Frequency, Duration) Notes Start Date End Date Status Zithromax Z-Moo 250 MG as directed Orall y daily; Duration: 5 days 12/11/2024 Not-Taki ng Promethazine-DM 6.25-15 MG/5ML 5 mL as needed Orally every 6 hrs 12/11/2024 Not-Taking Triamterene-HCTZ 37.5-25 MG 1 tablet in the morning Orally; Duration: 90 days Active Pantoprazole Sodium 40 MG Take 1 tablet by mouth once daily for 90 days; Duration: 90 Active Potassium Chloride ER 20 MEQ 1 tablet with food Orally once a day; Duration: 30 days Active Calcium + Vitamin D3 600-5 MG-MCG 1 tab(s) orally TID Active Albuterol Sulfate HFA 108 (90 Base) MCG/ACT INHALE 2 PUFFS BY MOUTH 4 TIMES DAILY NEEDED; Duration: 25 Active Multivitamin - 1 tablet Orally Once a day; Duration: 30 day(s) Active Trelegy Ellipta 100-62.5-25 MCG/ACT Inhale 1 puff by mouth once daily; Duration: 30 Active amLODIPine Besylate 5 MG Take 1 tablet b y mouth once daily; Duration: 90 days Active Problems Problem Type SNOMED Code ICD Code Onset Dates Problem Status W/U Status Risk Notes Problem Allergic rhinitis (82635646) Non-seasonal allergic rhinitis due to other allergic trigger (J30.89) Active confirmed Encounters Encounter Location Date Provider Diagnosis [facility] [facility] [address] [facility] [address] [place] [id number] 02/02/2025 Harmony Orr Non-seasonal allergi c rhinitis due to other allergic trigger J30.89 Assessments Encounter Date Diagnosis (ICD Code) Assessment Notes Treatment Notes Treatment Clinical Notes Section Notes 02/02/2025 Non-seasonal allergic rhinitis due to other allergic trigger (ICD-10 - J30.89) Plan Of Treatment Next Appt Details Provider Name:Harmony Jeffrey Gaby er, 03/16/2025 11:00:00 AM, [address] [facility] [address] [facility], [address], [place], [id number], Medications Administered Medication Instructions Date of Administration Dosage Notes allergy 02/02/2025 0.20 mL allergy 02/02/2025 0.20 mL Progress Notes * SOFIA OWENSDOB: [birth year] (79 yo F)Acc No.[id number]:02/02/2025 Patient: SOFIA RUDOLPH Provider: Harmony Orr M.D. :1945 A ge:79 Y S ex:Female Date:02/02/2025 Address:[address] [place] [address], [place], [id number] Subjective: * Chief Complaints: * 1 . Allergy shot. * Medical History: * Medications: T [...] Objective: * Vitals: Assessment: * Assessment: 1. N on-seasonal allergic rhinitis due to other allergic trigger - J30.89 (Primary) ? Plan: * Treatment: * Therapeutic Injections: allergy : 0.20 mL (Route: Subcutaneous) given by DEDRICK Lynn on subcutaneus (Non-seasonal allergic rhinitis due to other allergic trigger) allergy : 0.20 mL (Route: Subcutaneous) given by DEDRICK Lynn on subcutaneus (Non-seasonal allergic rhinitis due to other allergic trigger) * Procedure Codes: 9 5117 IMMUNOTHERAPY INJECTIONS * Images: Billing Information: * Visit Code: * Procedure Codes: 98466 IMMUNOTHERAPY INJECTIONS. * Electronic signature of Harmony Orr MD on 03/09/2025 at 09:33 AM EDT Sign off status: Pending * Provider: Harmony Orr M.D. Date: 0 02/02/2025 Generated for Ann-Marie zepeda/Bree/Alex on: 1 09:33 AM EDT
--- OUTSIDE RECORDS SUMMARY | 2025-02-04 06:30 | XMS_ITS ---
Author Organization [facility] Address [address] [place] [id number] Care Team Providers Care Canoe Builder Name Role Phone Harmony Orr Primary Care Provider [phone] Ree Forman Unavailable [phone] Allergies No Known Allergies REASON FOR VISIT [...] older) IM Intramuscular 02/04/2025 Administered Vital Signs Weight 176.4 lbs 02/04/2025 Blood pressure systolic 132 mm Hg 02/05/20 25 Blood pressure diastolic 78 mm Hg 025 Heart Rate 68 /min 02/04/2025 Height 63.25 in 02/04/2025 BMI 31 kg/m2 02/04/2025 Encounters Encounter Location Date Provider Diagnosis [facility] [address] [place] [address] [address] [place], [place] [id number] 02/04/2025 Ree Forman Trigger thumb, right thumb [...] Up: prn, Reason: Provider Name:Harmony Griffin er, 03/16/2025 11:00:00 AM, [address], [address], [place], [id number], Progress Notes * SOFIA OWENSDOB: [birth year] (79 yo F)Acc No.[id number]:02/04/2025 Progress Notes Patient: SOFIA RUDOLPH Provider: HEATH Head :1945 A ge:79 Y S ex:Female Date:02/04/2025 Address:[address] [place] [address] , [place], [id number] Pcp:Harmony Orr Subjective: * Chief Complaints: * [...] in flexion. Assessment: * Assessment: 1. T [facility] [employer] thumb, right thumb - M65.311 (Primary) 2 [...] * Images: Billing Information: * Visit Code: 62518 Office Visit, Est Pt., Level 3. * [...] * Electronic signature of HEATH Moore on 03/09/2025 at 09:34 AM EDT Sign off status: Pending * Provider: HEATH Head Date: 0 02/04/2025 Generated for Ann-Marie zepeda/Bree/Alex on: 1 09:34 AM EDT History and Physical Notes * HPI (History [...]
--- OUTSIDE RECORDS SUMMARY | 2025-02-06 07:45 | XMS_ITS ---
Author Organization [facility] Address [address] [place] [id number] Care Team Providers Care Drop Worker Name Role Phone Harmony Orr Primary Care Provider REASON FOR VISIT allergy shots Encounters Encounter Location Date Provider Diagnosis [facility] 1210 [facility] 36 [facility] [address] [place] [id number] 02/06/2025 Harmony Orr Non-seasonal allergi c rhinitis due to other allergic trigger J30.89 Assessments Encounter Date Diagnosis (ICD Code) Assessment Notes Treatment Notes Treatment Clinical Notes Section Notes 02/06/2025 Non-seasonal allergic rhinitis due to other allergic trigger (ICD-10 - J30.89) Plan Of Treatment Next Appt Details Provider Name:Harmony Griffin er, 03/16/2025 11:00:00 AM, 1210 [facility] 36 [facility], [address], [place], [phone], Medications Administered Medication Instructions Date of Administration Dosage Notes allergy 02/06/2025 0.30 mL Cat mix RA allergy 02/06/2025 0.30 mL Dog mix [place] Progress Notes * SOFIA OWENSDOB: [birth year] (79 yo F)Acc No.[id number]:02/06/2025 Patient: SOFIA RUDOLPH Provider: Harmony Orr M.D. :1945 A ge:79 Y S ex:Female Date:02/06/2025 Address:[address], [place], [id number] Subjective: * Chief Complaints: * 1 . [...] Information: * Visit Code: * Procedure Codes: 43084 IMMUNOTHERAPY INJECTIONS. * Electronic signature of Harmony Orr MD on 03/09/2025 at 09:33 AM EDT Sign off status: Pending * Provider: Harmony Orr M.D. Date: 0 02/06/2025 Generated for Ann-Marie zepeda/Bree/eTransmitting on: 09:33 AM EDT
--- OUTSIDE RECORDS SUMMARY | 2025-02-09 05:30 | XMS_ITS ---
Author Organization [facility] Address [address] [facility] 36 [facility] [address] [place] [phone] Care Team Providers Care Kettle Chipper Name Role Phone Harmony Orr Primary Care Provider [phone] REASON FOR VISIT ALLERGY SHOTS Medications Medication [...] Provider Diagnosis [facility] [address] [facility] [address] [place] [id number] 02/09/2025 Harmony Orr Allergic rhinitis, unspecified seasonality, unspecified trigger J30.9 Assessments Encounter Date Diagnosis (ICD Code) Assessment Notes Treatment Notes Treatment Clinical Notes Section Notes 02/09/2025 Allergic rhinitis, unspecified seasonality, unspecified trigger (ICD-10 - J30.9) Plan Of Treatment Next Appt Details Provider Name:Harmony Griffin er, 03/16/2025 11:00:00 AM, 1210 [facility] 36 [facility], [address], [place], [place], [phone], Medications Administered Medication Instructions Date of Administration Dosage Notes allergy 02/09/2025 0.35 mL Dog Mix: RT Ar m allergy 02/09/2025 0.35 mL Cat Mix: LT Ar m Progress Notes * SOFIA OWENSDOB: [birth year] (79 yo F)Acc No.[id number]:02/09/2025 Patient: SOFIA RUDOLPH Provider: Harmony Orr M.D. :1945 A ge:79 Y S ex:Female Date:02/09/2025 Address:[address] [place] [address] , [place], [id number] Subjective: * Chief Complaints: * 1 [...] Information: * Visit Code: * Procedure Codes: 60305 IMMUNOTHERAPY INJECTIONS. * Electronic signature of Harmony Orr MD on 03/09/2025 at 09:32 AM EDT Sign off status: Pending * Provider: Harmony Orr M.D. Date: 0 02/09/2025 Generated for Ann-Marie zepeda/Bree/Katiesmitting on: 1 09:32 AM EDT
--- OUTSIDE RECORDS SUMMARY | 2025-02-13 11:20 | XMS_ITS ---
Author Organization [facility] Address [address] [facility] 36 [facility] [address] [place] [phone] Care Team Providers Care Finance Admin Name Role Phone Harmony Orr Primary Care [...] Location Date Provider Diagnosis [facility] [address] [facility] 36 [facility] [address] [place] [id number] 02/13/2025 Harmony rOr Allergic rhinitis, unspecified seasonality, unspecified trigger J30.9 Assessments Encounter Date Diagnosis (ICD Code) Assessment Notes Treatment Notes Treatment Clinical Notes Section Notes 02/13/2025 Allergic rhinitis, unspecified seasonality, unspecified trigger (ICD-10 - J30.9) Plan Of Treatment Next Appt Details Provider Name:Harmony Griffin er, 03/16/2025 11:00:00 AM, 1210 [facility] [address], [address], [place], [place], [phone], Medications Administered Medication Instructions Date of Administration Dosage Notes allergy 02/13/2025 0.35 mL dog mix: RA allergy 02/13/2025 0.35 mL cat mix: LA Progress Notes * SOFIA OWENSDOB: [birth year] (79 yo F)Acc No.[id number]:02/13/2025 Patient: SOFIA RUDOLPH Provider: Harmony Orr M.D. :1945 A ge:79 Y S ex:Female Date:02/13/2025 Address:[address] [place] [address] 36 , [facility] [facility], [id number] Subjective: * Chief Complaints: * * Medical [...] Information: * Visit Code: * Procedure Codes: 97106 IMMUNOTHERAPY INJECTIONS. * Electronic signature of Harmony Orr MD on 03/09/2025 at 09:31 AM EDT Sign off status: Pending * Provider: Harmony Orr M.D. Date: Generated for Ann-Marie zepeda/Bree/Katiesmitting on: 09:31 AM EDT
--- OUTSIDE RECORDS SUMMARY | 2025-02-23 09:30 | XMS_ITS ---
Author Organization [facility] Address [address] [place] [id number] Care Team Providers Care Dish Person Name Role Phone Harmony Orr Primary Care Provider [phone] REASON FOR VISIT allergy injection Encounters Encounter Location Date Provider Diagnosis [facility] 1210 [facility] 36 [facility] [address] [place] [id number] 02/23/2025 Harmony Orr Allergic rhinitis, unspecified seasonality, unspecified trigger J30.9 Assessments Encounter Date Diagnosis (ICD Code) Assessment Notes Treatment Notes Treatment Clinical Notes Section Notes 02/23/2025 Allergic rhinitis, unspecified seasonality, unspecified trigger (ICD-10 - J30.9) Plan Of Treatment Next Appt Details Provider Name:Harmony Griffin er, 03/16/2025 11:00:00 AM, 1210 [facility] 36 [facility], [address], [place], [id number], Medications Administered Medication Instructions Date of Administration Dosage Notes allergy 02/23/2025 0.35 mL allergy 02/23/2025 0.35 mL Progress Notes * SOFIA OWENSDOB: [birth year] (79 yo F)Acc No.[id number]:02/23/2025 Patient: SOFIA RUDOLPH Provider: Harmony Orr M.D. :1945 A ge:79 Y S ex:Female Date:02/23/2025 [facility]:[address] [facility] [address], [place], [id number] Subjective: * Chief Complaints: * 1 . [...] Information: * Visit Code: * Procedure Codes: 15236 IMMUNOTHERAPY INJECTIONS. * Electronic signature of Harmony Orr MD on 03/09/2025 at 09:32 AM EDT Sign off status: Pending * Provider: Harmony Orr M.D. Date: Generated for Ann-Marie zepeda/Bree/Valerieitting on: 09:32 AM EDT
--- OUTSIDE RECORDS SUMMARY | 2025-02-25 11:45 | XMS_ITS ---
Author Organization [facility] Address 1210 [facility] 36 [facility] [address] [place] [id number] Care Team Providers Care Automation And Controls Manager Name Role Phone Harmony Orr Primary Care Provider [phone] REASON FOR VISIT ALLERGY SHOT Medications Medication [...] Encounter Location Date Provider Diagnosis [facility] 1210 [facility] 36 [facility] [address] [place] [phone] 02/25/2025 Harmony Orr Allergic rhinitis, unspecified seasonality, unspecified trigger J30.9 Assessments Encounter Date Diagnosis (ICD Code) Assessment Notes Treatment Notes Treatment Clinical Notes Section Notes 02/25/2025 Allergic rhinitis, unspecified seasonality, unspecified trigger (ICD-10 - J30.9) Plan Of Treatment Next Appt Details Provider Name:Harmony Maganabrian er, 03/16/2025 11:00:00 AM, 1210 [facility] 36 [facility], [address], [place], [place], [phone], Medications Administered Medication Instructions Date of Administration Dosage Notes allergy 02/25/2025 0.35 mL Mix Dog Left A rm allergy 02/25/2025 0.35 Mix Cat Right Arm Progress Notes * SOFIA OWENSDOB: [birth year] (79 yo F)Acc No.[id number]:02/25/2025 Patient: SOFIA RUDOLPH Provider: Harmony Orr M.D. :1945 A ge:79 Y S ex:Female Date:02/25/2025 Address:[address] [place] [address] , [id number] Subjective: * Chief Complaints: * 1 . [...] Information: * Visit Code: * Procedure Codes: 07917 IMMUNOTHERAPY INJECTIONS. * Electronic signature of Harmony Orr MD on 03/09/2025 at 09:32 AM EDT Sign off status: Pending * Provider: Harmony Orr M.D. Date: Generated for Ann-Marie zepeda/Bree/Alex on: 09:32 AM EDT
--- OUTSIDE RECORDS SUMMARY | 2025-03-02 10:00 | XMS_ITS ---
Author Organization [facility] Address 1210 [place] [facility] 36 [facility] [address] [place] [phone] Care Team Providers Care Press Puller Name Role Phone Harmony Orr Primary Care [...] Provider Diagnosis [place] [address] [place] 36 [facility] [address] [place] [phone] 03/02/2025 Harmony Orr Allergic rhinitis, unspecified seasonality, unspecified trigger J30.9 Assessments Encounter Date Diagnosis (ICD Code) Assessment Notes Treatment Notes Treatment Clinical Notes Section Notes 03/02/2025 Allergic rhinitis, unspecified seasonality, unspecified trigger (ICD-10 - J30.9) Plan Of Treatment Next Appt Details Provider Name:Harmony Maganabrian er, 03/16/2025 11:00:00 AM, 1210 [facility] 36 [facility], [address] , [place], [place], [phone], Medications Administered Medication Instructions Date of Administration Dosage Notes allergy 03/02/2025 0.35 mL dog: right arm allergy 03/02/2025 0.35 mL cat: left arm Progress Notes * SOFIA OWENSDOB: [birth year] (79 yo F)Acc No.[id number]:03/02/2025 Patient: SOFIA RUDOLPH Provider: Harmony Orr M.D. :1945 A ge:79 Y S ex:Female Date:03/02/2025 Address:[address] [place] [address] 36 , [id number] Subjective: * Chief Complaints: * [...] seasonality, unspecified trigger) * Procedure Codes: 9 5115 IMMUNOTHERAPY, ONE INJECTION * Images: Billing Information: * Visit Code: * Procedure Codes: 45555 IMMUNOTHERAPY, ONE INJECTION. * Electronic signature of Harmony Orr MD on 03/09/2025 at 09:35 AM EDT Sign off status: Pending * Provider: Harmony Orr M.D. Date: Generated for Ann-Marie zepeda/Bree/eTransmitting on: 09:35 AM EDT
--- OUTSIDE RECORDS SUMMARY | 2025-03-04 11:45 | XMS_ITS ---
Author Organization [facility] Address 1210 [facility] 36 [facility] [address] [place] [id number] Care Team Providers Care Track Template Maker Name Role Phone Harmony Orr Primary Care [...] Provider Diagnosis [place] [address] [place] [address] [facility] [address] [place] [id number] 03/04/2025 Harmony Orr Allergic rhinitis, unspecified seasonality, unspecified trigger J30.9 Assessments Encounter Date Diagnosis (ICD Code) Assessment Notes Treatment Notes Treatment Clinical Notes Section Notes 03/04/2025 Allergic rhinitis, unspecified seasonality, unspecified trigger (ICD-10 - J30.9) Plan Of Treatment Next Appt Details Provider Name:Harmony Maganabrian er, 03/16/2025 11:00:00 AM, 1210 [facility] 36 [facility], [address] , [place], [place], [phone], Medications Administered Medication Instructions Date of Administration Dosage Notes allergy 03/04/2025 0.35 mL mix dog: LA allergy 03/04/2025 0.35 mL mix cat: RA Progress Notes * SOFIA OWENSDOB: [birth year] (79 yo F)Acc No.[id number]:03/04/2025 Patient: SOFIA RUDOLPH Provider: Harmony Orr M.D. :1945 A ge:79 Y S ex:Female Date:03/04/2025 Address:[address] [place] [address] 36 , [id number] Subjective: * Chief Complaints: * 1 . [...] 0.35 mL (Route: Subcutaneous) given by Kimberlee Earlytravise , EPE on left deltoid (Allergic rhinitis, unspecified seasonality, unspecified trigger) allergy : 0.35 mL (Route: Subcutaneous) given by Kimberlee Tabore , EPE on right deltoid (Allergic rhinitis, unspecified seasonality, unspecified trigger) * Procedure Codes: 9 5115 IMMUNOTHERAPY, ONE INJECTION * Images: Billing Information: * Visit Code: * Procedure Codes: 52226 IMMUNOTHERAPY, ONE INJECTION. * Electronic signature of Harmony Orr MD on 03/09/2025 at 09:32 AM EDT Sign off status: Pending * Provider: Harmony Orr M.D. Date: Generated for Ann-Marie zepeda/Bree/eTransmitting on: 09:32 AM EDT
--- NOTE | 2025-03-09 09:26 | XR_ITS ---
FINAL REPORT CLINICAL HISTORY: right thumb and trigger finger COMPARISON: None FINDINGS: RIGHT HAND Three views demonstrate no acute fracture or dislocation. The visualized joint spaces are normally aligned. The soft tissues are unremarkable. IMPRESSION: No acute bony abnormality. Reviewed, Interpreted and Dictated by Antwan Chavez MD Transcribed by Ciarra Otero Authenticated and [facility]
--- OUTSIDE RECORDS SUMMARY | 2025-03-09 09:33 | XMS_ITS | Clinical Summary ---
Author Organization [facility] Address [address] [place] [address] Care Team Providers Care State Director Name Role Phone Parviz Orr MD Primary Care Provider [phone] Allergies No known active allergies Medications PREMARIN 0.3 MG tablet Take 0.3 mg by mouth Daily. 0 Active promethazine-dex tromethorphan (PROMETHAZINE-DM ) 6.25-15 MG/5ML syrup TAKE 5 ML BY MOUTH EVERY 6 HOURS NEEDED FOR 5 DAYS 0 Active VENTOLIN HFA 108 (90 Base) MCG/ACT inhaler Inhale 2 puffs Every 4 (Four) Hours As Needed. 0 Active aspirin 81 MG EC tablet Take 81 mg by mouth Daily. Active fluticasone (Flonase) 50 MCG/ACT nasal sprayIndications :Non-seasonal allergic rhinitis, unspecified trigger 2 sprays into the nostril(s) as directed by provider Daily. 9.9 mL 3 0 Active calcium carbonate (TUMS) 500 MG chewable tablet Chew 1 tablet Daily. Active irbesartan-hydro chlorothiazide (AVALIDE) 150-12.5 MG tablet Take 1 tablet by mouth Daily. Active pantoprazole (PROTONIX) 40 MG EC tablet Take 40 mg by mouth Daily. 2 Active Fluticasone-Umec lidin-Vilant (Trelegy Ellipta) 100-62.5-25 MCG/INH inhaler Inhale 1 puff Daily. 3 each 3 2 Active Fluticasone Furoate-Vilanter ol (Breo Ellipta) 100-25 MCG/INH inhaler Inhale 1 puff Daily. 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/19/2019 Former smoker (None x 26 years) 09/19/2019 Perennial allergic rhinitis 09/19/2019 Cough 09/19/2019 Immunizations Immunization Administration Dates Next Due COVID-19 ([employer]) Purple Cap Monovalent 07/07/2020,06/15/2020 Fluzone High-Dose 65+YRS 03/18/2020,03/15,05/20/2018,03/06 Fluzone High-Dose 65+yrs 03/18/2020 Pneumococcal Polysaccharide (PPSV23) 06/06/2017 Tdap 10/09/2018 Zostavax 12/05/2016 Family History Medical History Relation Name Comments Cancer Father Heart failure Father Breast cancer Mother Hypertension Mother Relation Name Status Comments Father Mother Social History Tobacco Use Types Packs/Day Years [...] on file Sexual Orientation Not on file Last Filed Vital Signs Vital Sign Reading Time Taken Comments Blood Pressure 130/76 12/29/2021 11:44 AM EDT Pulse 71 12/29/2021 11:44 AM EDT Temperature 36.4 C (97.5 F) 12/29/2021 11:44 AM EDT Respiratory Rate 16 10/02/2019 11:0 6 AM EDT Oxygen Saturation 96% 12/29/2021 11: 44 AM EDT resting, room air Inhaled Oxygen Concentration - - Weight 91.5 kg (201 lb 12.8 oz) 12/29/2021 11:44 AM EDT Height 160 cm (5' 3 ) 12/29/2021 11:44 AM EDT Body Mass Index 35.75 12/29/2021 11:44 AM EDT Plan of Treatment Health Maintenance Due Date Last Done Comments DXA SCAN 1945 ZOSTER VACCINE (2 of 3) 01/30/2017 12/05/2016 Pneumococcal Vaccine 50+ (2 of 2 - PCV) 06/06/2018 06/06/2017 ANNUAL PHYSICAL 09/12/2019 HEPATITIS C SCREENING 09/12/2019 RSV Vaccine - Adults (1 - 1- dose 75+ series) 08/15/2022 INFLUENZA VACCINE 12/12/2024 03/18/2020, , 04/07/2019, Additional history exists COVID-19 Vaccine ( - 2024-2 6 season) 2025 12/08/2021, 02/02/2021, 07/07/2020, Additional history exists TDAP/TD VACCINES (2 - Td or Tdap) 10/09/2028 019 Insurance MEDICARE A & [employer] Care Teams State Director Relationship Specialty Start Date End Date Parviz Orr MD [address] [place] [address] [place] [id number] PCP - General Family Medicine 09/18/19
--- OUTSIDE RECORDS SUMMARY | 2025-03-09 09:36 | XMS_ITS | Patient Health Record ---
Author Organization [facility] Address [address] [place] [id number] Care Team Providers Care Steel Layer Name Role Phone Harmony Orr Primary Care Provider Quique Jf Unavailable [phone] Ree Forman Unavailable [phone] Allergies No Known Allergies Results Component Value Reference Range Notes H-BMP Reviewed date:06/15/2024 07:41:24 PM Interpretation: Performing Lab: Notes/Report: NA 134 136-145 mmol/L K 4.4 3.5-5.1 mmoL/L CL 100 98-107 mmol/L CO2 28 22.0-30.0 mmol/L GAP 10.4 5-15 mEq/L BUN 11 7-17 mg/dl Delta: 8 on 06/14/24 CREATT 0.70 0.52-1.04 mg/dl CRCLE 59 50-200 mL/min GFRAA 98 >60 ML/MIN EGFR 81 >60 ml/min GLU 95 74-100 mg/dl CA 10.0 8.4-10.2 mg/dl H-CBC Reviewed date:06/15/2024 07:41:24 PM Interpretation: Performing Lab: Notes/Report: WBC 13.6 4.8-10.8 K/mm3 RBC 3.75 4.20-5.40 M/mm3 HGB 10.8 12.2-16.2 g/dL Delta: 9.8 on 06/14/24 HCT 32.9 37.0-47.0 % MCV 87.7 81-99 fl MCH 28.8 27.0-31.2 pg MCHC 32.8 31.8-35.4 g/dL RDW 13.0 11.5-17.5 % PLT 310 142-424 K/mm3 Delta: 210 on 06/14/24-0600 MPV 9.6 7.4-10.4 fl NE% 77.6 37.0-80.0 % LY% 14.8 10-50 % MO% 5.8 1.7-9.3 % EO% 0.1 0.1-12.0 % BA% 0.3 0.1-2.0 % NE# 10.5 1.8-7.8 K/mm3 LY# 2.0 0.7-4.5 K/mm3 MO# 0.8 0.1-1.0 K/mm3 EO# 0.0 0.0-0.4 K/mm3 BA# 0.0 0-0.2 K/mm3 H-Glycohemoglobin A1C Reviewed date:06/15/2024 07:41:24 PM Interpretation: Performing Lab: Notes/Report: HGBA1C 5.9 4.0-6.0 % < 6% Non-Diabetic Level < 7% Controlled Diabetic Level > 8% Poorly Controlled Diabetic Level H-CMP Reviewed date:06/14/2024 11:03:12 AM Interpretation: Performing Lab: Notes/Report: NA 131 136-145 mmol/L K 4.1 3.5-5.1 mmoL/L CL 100 98-107 mmol/L CO2 25 22.0-30.0 mmol/L GAP 10.1 5-15 mEq/L BUN 8 7-17 mg/dl Delta: 11 on 06/13/24-1511 CREATT 0.60 0.52-1.04 mg/dl Delta: 0.80 on 06/13/24-1511 CRCLE 58 50-200 mL/min GFRAA 118 >60 ML/MIN Delta: 84 on 06/13/24 EGFR 97 >60 ml/min GLU 104 74-100 mg/dl CA 8.9 8.4-10.2 mg/dl BILIT 0.6 0.2-1.3 mg/dl AST 91 14-36 U/L Delta: 39 on 06/13/24-552 ALT 62 12-78 U/L Delta: 27 on 06/13/24-0553 TP 6.1 6.3-8.2 g/dl ALB 3.3 3.5-5.0 g/dl GLOB 2.8 1.3-3.2 g/dL AGRATIO 1.2 1.1-1.8 ALP 132 38-126 U/L H-CBC Reviewed date:06/14/2024 11:03:12 AM Interpretation: Performing Lab: Notes/Report: WBC 12.5 4.8-10.8 K/mm3 RBC 3.39 4.20-5.40 M/mm3 HGB 9.8 12.2-16.2 g/dL HCT 29.3 37.0-47.0 % MCV 86.4 81-99 fl MCH 28.9 27.0-31.2 pg MCHC 33.4 31.8-35.4 g/dL RDW 12.9 11.5-17.5 % PLT 210 142-424 K/mm3 MPV 9.9 7.4-10.4 fl NE% 78.5 37.0-80.0 % LY% 12.6 10-50 % MO% 7.7 1.7-9.3 % EO% 0.2 0.1-12.0 % BA% 0.2 0.1-2.0 % NE# 9.8 1.8-7.8 K/mm3 LY# 1.6 0.7-4.5 K/mm3 MO# 1.0 0.1-1.0 K/mm3 EO# 0.0 0.0-0.4 K/mm3 BA# 0.0 0-0.2 K/mm3 H-COVIDPANEL Reviewed date:06/13/2024 12:13:16 PM Interpretation:neg Performing Lab: Notes/Report: No Is this the 1st COVID test for the patient? No Does the patient have COVID symptoms? Yes Is the patient employed in healthcare? No Is patient an [facility] employee? N Is patient currently hospitalized? Yes Is patient currently in ICU? No Date of Symptom onset Is patient a resident in a congregate care setting? No ADENOQIA Not Detected NotDetected CORONAHKU1 Not Detected NotDetected [id number] Not Detected NotDetected [id number] Not Detected NotDetected UISNYXW47 Not Detected NotDetected METAPNEUMO Not Detected NotDetected RHINOENTER Not Detected NotDetected INFLUAPCR Not Detected NotDetected FLUAH1 Not Detected NotDetected [id number] Not Detected NotDetected INFLUAH3 Not Detected NotDetected INFLUB Not Detected NotDetected PARAINFLU1 Not Detected NotDetected PARAINFLU2 Not Detected NotDetected PARAINFLU3 Not Detected NotDetected PARAINFLU 4 Not Detected NotDetected RSVPCR Not Detected NotDetected COVIDHMH Not Detected NotDetected Effective 01/04/21, Positive covid results will no longer be called to the ordering physician. Infection control and the physician?s office will continue to report positive covid results to the local Health Department as required. This assay is for in vitro diagnostic use under FDA Emergency Use Authorization only. Negative results do not preclude infection with SARS CoV 2 virus and should not be the sole basis of a patient treatment/management or public health decision. Follow up testing should be performed according to the current CDC recommendations. BORDPERT Not Detected NotDetected CHLAMYDPNEUM Not Detected NotDetected MYCOPLASM Not Detected NotDetected H-Sputum Culture with Gram Axel underwood Reviewed date:06/15/2024 07:41:24 PM Interpretation: Performing Lab: Notes/Report: Comment: Induce w/3ml NS neb tx if necessary GS Gram Stain: GS <10 White Blood Cells/LPF GS <10 Epithelial Cells / LPF GS Rare Gram Positive Cocci CUSPU Normal Respiratory Tammi H-Magnesium Reviewed date:06/13/2024 10:01:59 AM Interpretation: Performing Lab: Notes/Report: MG 1.8 1.6-2.3 mg/dl H-CMP Reviewed date:06/13/2024 10:01:59 AM Interpretation: Performing Lab: Notes/Report: NA 128 136-145 mmol/L K 3.0 3.5-5.1 mmoL/L CRITICAL RESULT Results called and read back/verified to: ANGELES on 06/13/24 at 0653 By Cheli Sotelo MLT CL 94 98-107 mmol/L CO2 25 22.0-30.0 mmol/L GAP 12.0 5-15 mEq/L BUN 15 7-17 mg/dl CREATT 0.80 0.52-1.04 mg/dl CRCLE 58 50-200 mL/min GFRAA 84 >60 ML/MIN EGFR 70 >60 ml/min GLU 97 74-100 mg/dl CA 8.6 8.4-10.2 mg/dl BILIT 0.8 0.2-1.3 mg/dl AST 39 14-36 U/L ALT 27 12-78 U/L TP 5.9 6.3-8.2 g/dl ALB 3.1 3.5-5.0 g/dl GLOB 2.8 1.3-3.2 g/dL AGRATIO 1.1 1.1-1.8 ALP 128 38-126 U/L H-BMP Reviewed date:06/13/2024 04:20:11 PM Interpretation: Performing Lab: Notes/Report: NA 126 136-145 mmol/L K 3.5 3.5-5.1 mmoL/L CL 94 98-107 mmol/L CO2 24 22.0-30.0 mmol/L GAP 11.5 5-15 mEq/L BUN 11 7-17 mg/dl Delta: 15 on 06/13/24-0553 CREATT 0.80 0.52-1.04 mg/dl CRCLE 58 50-200 mL/min GFRAA 84 >60 ML/MIN EGFR 70 >60 ml/min GLU 112 74-100 mg/dl CA 8.7 8.4-10.2 mg/dl H-DIFF Reviewed date:06/13/2024 10:01:59 AM Interpretation: Performing Lab: Notes/Report: HARSH MANUAL DIFFERENTIAL MANUAL DIFF TCC 100 NEUT%M 80 42-76 % LYMPH%M 14 10-50 % MONO%M 6 2-9 % PLTE Normal RM Normal H-CBC Reviewed date:06/13/2024 10:01:59 AM Interpretation: Performing Lab: Notes/Report: WBC 15.8 4.8-10.8 K/mm3 RBC 3.49 4.20-5.40 M/mm3 HGB 10.2 12.2-16.2 g/dL HCT 30.1 37.0-47.0 % MCV 86.2 81-99 fl MCH 29.2 27.0-31.2 pg MCHC 33.9 31.8-35.4 g/dL RDW 12.9 11.5-17.5 % PLT 202 142-424 K/mm3 MPV 9.7 7.4-10.4 fl NE% 77.7 37.0-80.0 % LY% 13.9 10-50 % MO% 7.5 1.7-9.3 % EO% 0.1 0.1-12.0 % BA% 0.1 0.1-2.0 % NE# 12.3 1.8-7.8 K/mm3 LY# 2.2 0.7-4.5 K/mm3 MO# 1.2 0.1-1.0 K/mm3 EO# 0.0 0.0-0.4 K/mm3 BA# 0.0 0-0.2 K/mm3 H-Troponin I Reviewed date:06/13/2024 10:01:59 AM Interpretation: Performing Lab: Notes/Report: TROP < 0.01 0.00-0.034 ng/ml <0.012-0.034 ng/mL NORMAL 0.035 - >0.120 ng/mL ELEVATED* *Serial testing recommended. A rise and fall with peak greater than 0.6 ng/mL may indicate acute myocardial infarction, but is not independently diagnostic. Clinical correlation is necessary. *ALERT* High levels of Biotin can falsely depress Troponin results. Many dietary supplements promoted for hair, skin, and nail benefits contain biotin levels up to 650 times the recommended daily intake of biotin. In addition to dietary supplements, Biotin is occasionally prescribed for medical conditions. H-Lactic Acid Reviewed date:06/13/2024 10:01:59 AM Interpretation: Performing Lab: Notes/Report: Comment Repeat 2nd or 3rd lactic acid to reflex if initial or subseq level > 2 LACTIC 1.3 0.7-2.1 mmol/L H-Sed Rate Reviewed date:06/13/2024 10:01:59 AM Interpretation: Performing Lab: Notes/Report: ESR 23 0-30 mm/hr H-CRP Reviewed date:06/13/2024 10:01:59 AM Interpretation: Performing Lab: Notes/Report: CRP 387.5 0-4 mg/L H-Culture, Blood Reviewed date:06/18/2024 09:48:58 AM Interpretation: Performing Lab: Notes/Report: CUBLD NO GROWTH AFTER 5 DAYS CUBLD NO GROWTH AFTER 5 DAYS H-BMP Reviewed date:06/13/2024 10:01:59 AM Interpretation: Performing Lab: Notes/Report: NA 129 136-145 mmol/L K 3.2 3.5-5.1 mmoL/L CL 90 98-107 mmol/L CO2 26 22.0-30.0 mmol/L GAP 16.2 5-15 mEq/L BUN 18 7-17 mg/dl CREATT 0.90 0.52-1.04 mg/dl CRCLE 58 50-200 mL/min GFRAA 74 >60 ML/MIN EGFR 61 >60 ml/min GLU 102 74-100 mg/dl CA 9.9 8.4-10.2 mg/dl CBC Fingerstick (in house) Reviewed date:09/12/2024 08:23:56 AM Interpretation: Performing Lab: Notes/Report: wbc 8.6 3.5 - 10 lym 28.0 15 - 50 mid 7.2 2 - 15 gran 64.8 35 - 80 rbc 4.29 3.5 - 5.5 hgb 12.9 11.5 - 16.5 hct 39.2 35 - 55 mcv 91.3 75 - 100 mch 30.0 25 - 35 mchc 32.9 31 - 38 plat 331 100 - 400 Influenza Screen (in house) Reviewed date:09/12/2024 08:23:56 AM Interpretation:neg Performing Lab: Notes/Report: neg results neg P-Basic Metabolic Panel (BMP ) Reviewed date:07/03/2024 09:53:22 AM Interpretation:Normal Performing Lab: Notes/Report: Test performed by [facility] [address] [place] [address] , [address], [place] [address] Robert Mohamud MD, Adjunct Trainer CLIA: [id number] Sodium 139 135-145 mmol/L Potassium 4.2 3.5-5.3 mmol/L Chloride 100 97-108 mmol/L CO2 27 22-32 mmol/L Glucose 98 65-99 mg/dL BUN 19 8-23 mg/dL Creatinine 0.94 0.50-1.00 mg/dL Calcium 10.4 8.6-10.4 mg/dL eGFR by Creatinine 63 >59 mL/min/1.73m2 CXR Reviewed date:06/13/2024 10:01:59 AM Interpretation: Performing Lab: Notes/Report: Covid test (in house) Reviewed date:06/13/2024 10:01:59 AM Interpretation: Performing Lab: Notes/Report: Result: Neg P-Comprehensive Metabolic Pa willam (CMP) Reviewed date:06/13/2024 10:01:59 AM Interpretation: Performing Lab: Notes/Report: Test performed by [facility], [address] , [address], [place] [address] Robert Mohamud MD, Adjunct Trainer CLIA: [id number] Sodium 129 135-145 mmol/L Potassium 3.4 3.5-5.3 mmol/L Chloride 89 97-108 mmol/L CO2 26 22-32 mmol/L Glucose 101 65-99 mg/dL BUN 16 8-23 mg/dL Creatinine 0.87 0.50-1.00 mg/dL Calcium 9.2 8.6-10.4 mg/dL eGFR by Creatinine 69 >59 mL/min/1.73m2 Protein 6.5 6.0-8.3 g/dL Albumin 3.6 3.5-5.3 g/dL Alkaline Phosphatase 139 35-121 IU/L ALT (SGPT) 22 <5-47 IU/L AST (SGOT) 30 <5-40 IU/L Bilirubin, Total 1.0 <0.2-1.2 mg/dL A/G Ratio 1.2 1.1-2.5 CBC Venipuncture (in house) Reviewed date:06/13/2024 10:01:59 AM Interpretation: Performing Lab: Notes/Report: wbc 18.1 3.5 - 10 lymph 4.2% 15 - 50 mid 2.2% 2 - 15 gran 93.6% 35 - 80 rbc 4.17 3.5 - 5.5 hgb 12.3 11.5 - 16.5 hct 35.9 35 - 55 mcv 86.0 75 - 100 mch 29.6 25 - 35 mchc 34.4 31 - 38 platlet 246 100 - 400 Influenza Screen (in house) Reviewed date:06/13/2024 10:01:59 AM Interpretation: Performing Lab: Notes/Report: results Neg P-Sed Rate (ESR) Reviewed date:11/11/2024 03:40:59 PM Interpretation:Normal Performing Lab: Notes/Report: Test performed by [facility] [address] [place] [address] , [address], [place] [address] Robert Mohamud MD, Adjunct Trainer CLIA: [id number] Erythrocyte Sedimentation Rate (ESR), Automated 29 <31 mm/hr P-Comprehensive Metabolic Pa willam (CMP) Reviewed date:11/11/2024 03:40:59 PM Interpretation:Normal Performing Lab: Notes/Report: Test performed by [facility] [address] [place] [address] , [address], [place] [address] Robert Mohamud MD, Adjunct Trainer CLIA: [id number] Sodium 138 135-145 mmol/L Potassium 4.1 3.5-5.3 mmol/L Chloride 101 97-108 mmol/L CO2 26 22-32 mmol/L Glucose 106 65-99 mg/dL BUN 13 8-23 mg/dL Creatinine 0.88 0.50-1.00 mg/dL Calcium 10.4 8.6-10.4 mg/dL eGFR by Creatinine 68 >59 mL/min/1.73m2 Protein 7.0 6.0-8.3 g/dL Albumin 4.4 3.5-5.3 g/dL Alkaline Phosphatase 109 35-121 IU/L ALT (SGPT) 15 <5-47 IU/L AST (SGOT) 20 <5-40 IU/L Bilirubin, Total 0.3 <0.2-1.2 mg/dL A/G Ratio 1.7 1.1-2.5 CXR Reviewed date:09/11/2024 10:10:11 AM Interpretation: Performing Lab: Notes/Report: CBC Fingerstick (in house) Reviewed date:09/05/2024 04:50:35 PM Interpretation: Performing Lab: Notes/Report: wbc 19.8 3.5 - 10 lym 13.8 15 - 50 mid 5.2 2 - 15 gran 81.0 35 - 80 rbc 4.16 3.5 - 5.5 hgb 12.6 11.5 - 16.5 hct 38.1 35 - 55 mcv 91.5 75 - 100 mch 30.4 25 - 35 mchc 33.2 31 - 38 plat 242 100 - 400 CXR Reviewed date:07/21/2024 10:42:35 AM Interpretation:unremarkable Performing Lab: Notes/Report: unremarkable CBC Fingerstick (in house) Reviewed date:07/17/2024 05:59:26 PM Interpretation: Performing Lab: Notes/Report: wbc 10.5 3.5 - 10 lym 10.7% 15 - 50 mid 3.3% 2 - 15 gran 86.0% 35 - 80 rbc 4.14 3.5 - 5.5 hgb 12.4 11.5 - 16.5 hct 37.0 35 - 55 mcv 89.4 75 - 100 mch 30.0 25 - 35 mchc 33.5 31 - 38 plat 198 100 - 400 Influenza Screen (in house) Reviewed date:07/17/2024 05:59:17 PM Interpretation: Performing Lab: Notes/Report: results Neg CBC Fingerstick (in house) Reviewed date:12/11/2024 12:36:33 PM Interpretation: Performing Lab: Notes/Report: wbc 12.4 3.5 - 10 lym 20.2% 15 - 50 mid 5.3% 2 - 15 gran 74.5% 35 - 80 rbc 4.50 3.5 - 5.5 hgb 13.5 11.5 - 16.5 hct 39.8 35 - 55 mcv 88.4 75 - 100 mch 30.0 25 - 35 mchc 33.9 31 - 38 plat 216 100 - 400 Medications Medication SIG (Take, Route, Frequency, Duration) [...] Once a day; Duration: 30 day(s) Active Immunizations Vaccine Route Administration Date Status Comme nts COVID 19 Pfizer Unknown 06/15/2020 Administered COVID 19 Pfizer Unknown 07/07/2020 Administered COVID 19 Pfizer Unknown 02/02/2021 Administered Fluzone High Dose (65yr and older) Unknown 04/04/2017 Administered Fluzone High Dose (65yr and older) IM Intramuscular 05/20/2018 Administered Fluzone High Dose (65yr and older) IM Intramuscular 04/07/2019 Administered Fluzone High Dose (65yr and older) IM Intramuscular 03/18/2020 Administered Fluzone High Dose (65yr and older) Unknown 03/18/2020 Administered Fluzone High Dose (65yr and older) IM Intramuscular 04/25/2021 Administered Fluzone High Dose (65yr and older) Unknown 03/21/2022 Pending Fluzone High Dose (65yr and older) IM Intramuscular 02/04/2025 Administered PNEUMOVAX 23 VACCINE IM Intramuscular 06/06/2017 Administe red PNEUMOVAX 23 VACCINE Unknown 06/06/2017 Administered Prevnar (PCV13) IM Intramuscular 10/28/2014 Administered Tetanus Tdap-Adacel (over 7yrs) IM Intramuscular 10/09/2018 Administered Tetanus Tdap-Adacel (over 7yrs) Unknown 10/09/2018 Administered xAdministration of injection Unknown 12/05/2016 Administered xFluzone High Dose-private (65yr&older) Unknown 03/06/2017 Administered xFluzone High Dose-private (65yr&older) Unknown 04/07/2019 Administered Problems Problem Type SNOMED Code ICD Code Onset Dates Problem Status W/U Status Risk Notes Problem Essential hypertension (20165845) Essential hypertension (I10) Active confirmed Problem Cough (39026567) Cough (R05) Active confirmed Problem Hearing loss (15073422) Hearing loss (H91.90) Active confirmed Problem Mixed hyperlipidemia (321259669) Mixed hyperlipidemia (E78.2) Active confirmed Problem Hyperlipidemia (56352317) Hyperlipidemia, unspecified (E78.5) Active confirmed Problem Primary insomnia (5375280) Primary insomnia (F51.01) Active confirmed Problem Acute exacerbation of bronchiectasis (166286218) Bronchiectasis with acute lower respiratory infection (J47.0) Active confirmed Problem Angiotensin-convert ing-enzyme inhibitor adverse reaction (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) Adverse effect of angiotensin-conver ting-enzyme inhibitors, initial encounter (T46.4X5A) Active confirmed Problem Gastroesophageal reflux disease without esophagitis (061685977) Gastroesophageal reflux disease without esophagitis (K21.9) Active confirmed Problem Headache (12980610) Periodic hea dache syndrome, not intractable (G43.C0) Active confirmed Problem Interstitial lung disease (345438620) Interstitial lung disease (J84.9) Active confirmed Problem Allergic rhinitis (22226288) Seasonal allergic rhinitis due to other allergic trigger (J30.89) Active confirmed Problem Allergic rhinitis (44870333) Non-seasonal allergic rhinitis due to other allergic trigger (J30.89) Active confirmed Problem Exacerbation of moderate persistent asthma (disorder) (252607877) Moderate persistent asthmatic bronchitis with acute exacerbation (J45.41) Active confirmed Problem Uncomplicated moderate persistent asthma (353078993) Moderate persistent asthmatic bronchitis without complication (J45.40) Active confirmed Problem Allergic rhinitis (09684651) Allergic rhinitis, unspecified seasonality, unspecified trigger (J30.9) Active confirmed Problem Plain X-ray of chest abnormal (finding) (5187321328) Abnormal chest x-ray (R93.89) Active confirmed Problem History of colitis (610340254) History of colitis (Z87.19) Active confirmed Problem Pneumonia (245708045) Pneumonia of right upper lobe due to infectious organism (J18.9) Active confirmed Problem Acquired bronchiectasis (889198424) Acquired bronchiectasis (J47.9) Active confirmed Vital Signs Heart Rate 68 /min 02/04/2025 Blood pressure diastolic 78 mm Hg 02/04/2025 Height 63.25 in 02/04/2025 Blood pressure systolic 132 mm Hg 02/04/2025 Weight 176.4 lbs 02/04/2025 BMI 31 kg/m2 02/04/2025 Encounters Encounter Location Date Provider Diagnosis [facility] [address] [facility] [address] [place], [place] [id number] 03/10/2024 Harmony Orr Moderate persistent asthmatic bronchitis without complication J45.40 ; Cough R05 and Essential hypertension I10 [facility] [address] [place], [place] [id number] 06/12/2024 Harmony Orr Respiratory infectio n J98.8 and Essential hypertension I10 [facility] [address] [place], [place] [id number] 06/23/2024 Harmony Orr Bronchiectasis with acute lower respiratory infection J47.0 [facility] [address] [place], [place] [id number] 06/30/2024 Harmony Orr Bronchiectasis witho ut complication J47.9 [facility] [address] [place], [place] [id number] 07/17/2024 Harmony Orr Acquired bronchiecta sis J47.9 [facility] [address] [place], [place] [id number] 07/21/2024 Harmony Orr Moderate persistent asthmatic bronchitis with acute exacerbation J45.41 ; Acquired bronchiectasis J47.9 and Primary insomnia F51.01 [facility] [address] [place], [place] [id number] 07/28/2024 Harmony Orr Acquired bronchiecta sis J47.9 [facility] [address] [place], [place] [id number] 09/05/2024 Ree Crowdy Bronchitis J40 [facility] [address] [place], [place] [id number] 09/11/2024 Ree Crowdy Bronchitis J40 [facility] [address] [place], [place] [id number] 10/27/2024 Harmony Orr Interstitial lung disease J84.9 ; Positive ANDRES (antinuclear antibody) R76.8 ; Essential hypertension I10 and BMI 29.0-29.9,adult Z68.29 [facility] [address] [place], [place] [id number] 12/05/2024 Harmony Orr Allergic rhinitis, unspecified seasonality, unspecified trigger J30.9 [facility] [address] [place], [place] [id number] 12/09/2024 J Jeffrey Kirby Allergic rhinitis, unspecified seasonality, unspecified trigger J30.9 [facility] [address] [place], [place] [id number] 12/11/2024 Jf Surrency Acute URI J06.9 [facility] [address] [place], [place] [id number] 12/17/2024 J Jeffrey Kirby Allergic rhinitis, unspecified seasonality, unspecified trigger J30.9 [facility] [address] [place], [place] [id number] 12/19/2024 J Jeffrey Kirby Allergic rhinitis, unspecified seasonality, unspecified trigger J30.9 [facility] [address] [place] [id number] 12/25/2024 J Jeffrey Kirby Allergic rhinitis, unspecified seasonality, unspecified trigger J30.9 [facility] [address] [place] [id number] 12/29/2024 J Jeffrey Kirby Allergic rhinitis, unspecified seasonality, unspecified trigger J30.9 [facility] [address] [place], [place] [id number] 12/31/2024 J Jeffrey Kirby Allergic rhinitis, unspecified seasonality, unspecified trigger J30.9 [facility] [address] [place] [id number] 01/05/2025 J Jeffrey Kirby Allergic rhinitis, unspecified seasonality, unspecified trigger J30.9 [facility] [address] [place], [place] [id number] 01/08/2025 J Jeffrey Kirby Allergic rhinitis, unspecified seasonality, unspecified trigger J30.9 [facility] [address] [place] [id number] 01/13/2025 J Jeffrey Kirby Allergic rhinitis, unspecified seasonality, unspecified trigger J30.9 [facility] [address] [place] [id number] 01/15/2025 J Jeffrey Kirby Allergic rhinitis, unspecified seasonality, unspecified trigger J30.9 [facility] [address] [place] [id number] 01/19/2025 J Jeffrey Orr Allergic rhinitis, unspecified seasonality, unspecified trigger J30.9 [facility] [address] [place] [id number] 01/21/2025 J Jeffrey Orr Allergic rhinitis, unspecified seasonality, unspecified trigger J30.9 [facility] [address] [place], [place] [id number] 01/27/2025 J Jeffrey Orr Allergic rhinitis, unspecified seasonality, unspecified trigger J30.9 [facility] [address] [place], [place] [id number] 01/30/2025 J Jeffrey Orr Seasonal allergic rhinitis due to other allergic trigger J30.89 [facility] [address] [place], [place] [id number] 02/02/2025 J Jeffrey Orr Non-seasonal allergi c rhinitis due to other allergic trigger J30.89 [facility] [address] [place], [place] [id number] 02/04/2025 Ree Felipedy Trigger thumb, right thumb M65.311 and Encounter for immunization Z23 [facility] [address] [place], [place] [id number] 02/06/2025 J Jeffrey Orr Non-seasonal allergi c rhinitis due to other allergic trigger J30.89 [facility] [address] [place] [id number] 02/09/2025 J Jeffrey Orr Allergic rhinitis, unspecified seasonality, unspecified trigger J30.9 [facility] [address] [place] [id number] 02/13/2025 J Jeffrey Orr Allergic rhinitis, unspecified seasonality, unspecified trigger J30.9 [facility] [address] [place], [place] [id number] 02/23/2025 J Jeffrey Orr Allergic rhinitis, unspecified seasonality, unspecified trigger J30.9 [facility] [address] [place] [id number] 02/25/2025 Harmony Orr Allergic rhinitis, unspecified seasonality, unspecified trigger J30.9 [facility] [address] [place] [id number] 03/02/2025 Harmony Orr Allergic rhinitis, unspecified seasonality, unspecified trigger J30.9 [facility] [address] [facility] [address] [place], [place] [id number] 03/04/2025 Harmony Orr Allergic rhinitis, unspecified seasonality, unspecified trigger J30.9 [facility] [address] [facility] [address] [place], [place] [id number] 06/16/2024 Harmony Orr [facility] [address] [facility] [address] [place], [place] [id number] 03/02/2025 Harmony Orr Assessments Encounter Date Diagnosis (ICD Code) Assessment Notes Treatment Notes Treatment Clinical Notes Section Notes 02/06/2025 Non-seasonal allergic rhinitis due to other allergic trigger (ICD-10 - J30.89) 09/11/2024 Bronchitis (ICD-10 - J40) WBC is normal. No need for further abx. Will start on steroids and continue cough medication. 02/09/2025 Allergic rhinitis, unspecified seasonality, unspecified trigger (ICD-10 - J30.9) 02/04/2025 Trigger thumb, right thumb (ICD-10 - M65.311) If no improvement with oral steroids, will send to ortho for injections. 02/04/2025 Encounter for immunization (ICD-10 - Z23) 02/02/2025 Non-seasonal allergic rhinitis due to other allergic trigger (ICD-10 - J30.89) 01/30/2025 Seasonal allergic rhinitis due to other allergic trigger (ICD-10 - J30.89) 01/13/2025 Allergic rhinitis, unspecified seasonality, unspecified trigger (ICD-10 - J30.9) 06/30/2024 Bronchiectasis without complication (ICD-10 - J47.9) 10/27/2024 Interstitial lung disease (ICD-10 - J84.9) 12/05/2024 Allergic rhinitis, unspecified seasonality, unspecified trigger (ICD-10 - J30.9) 12/09/2024 Allergic rhinitis, unspecified seasonality, unspecified trigger (ICD-10 - J30.9) 12/11/2024 Acute URI (ICD-10 - J06.9) 12/17/2024 Allergic rhinitis, unspecified seasonality, unspecified trigger (ICD-10 - J30.9) 12/19/2024 Allergic rhinitis, unspecified seasonality, unspecified trigger (ICD-10 - J30.9) 12/25/2024 Allergic rhinitis, unspecified seasonality, unspecified trigger (ICD-10 - J30.9) 12/29/2024 Allergic rhinitis, unspecified seasonality, unspecified trigger (ICD-10 - J30.9) 12/31/2024 Allergic rhinitis, unspecified seasonality, unspecified trigger (ICD-10 - J30.9) 01/05/2025 Allergic rhinitis, unspecified seasonality, unspecified trigger (ICD-10 - J30.9) 01/08/2025 Allergic rhinitis, unspecified seasonality, unspecified trigger (ICD-10 - J30.9) 01/15/2025 Allergic rhinitis, unspecified seasonality, unspecified trigger (ICD-10 - J30.9) 01/19/2025 Allergic rhinitis, unspecified seasonality, unspecified trigger (ICD-10 - J30.9) 01/21/2025 Allergic rhinitis, unspecified seasonality, unspecified trigger (ICD-10 - J30.9) 01/27/2025 Allergic rhinitis, unspecified seasonality, unspecified trigger (ICD-10 - J30.9) 02/13/2025 Allergic rhinitis, unspecified seasonality, unspecified trigger (ICD-10 - J30.9) 02/23/2025 Allergic rhinitis, unspecified seasonality, unspecified trigger (ICD-10 - J30.9) 02/25/2025 Allergic rhinitis, unspecified seasonality, unspecified trigger (ICD-10 - J30.9) 03/02/2025 Allergic rhinitis, unspecified seasonality, unspecified trigger (ICD-10 - J30.9) 03/04/2025 Allergic rhinitis, unspecified seasonality, unspecified trigger (ICD-10 - J30.9) 03/10/2024 Cough (ICD-10 - R05) 03/10/2024 Moderate persistent asthmatic bronchitis without complication (ICD-10 - J45.40) 06/12/2024 Essential hypertension (ICD-10 - I10) 06/12/2024 Respiratory infection (ICD-10 - J98.8) 06/23/2024 Bronchiectasis with acute lower respiratory infection (ICD-10 - J47.0) Prednisone 40mg daily for 14 days (post discharge), then 20mg for 14 days, then 10mg for 14 days. Needs appt with Dr. Dennis. 07/17/2024 Acquired bronchiectasis (ICD-10 - J47.9) 07/21/2024 Moderate persistent asthmatic bronchitis with acute exacerbation (ICD-10 - J45.41) 07/21/2024 Acquired bronchiectasis (ICD-10 - J47.9) 07/28/2024 Acquired bronchiectasis (ICD-10 - J47.9) 09/05/2024 Bronchitis (ICD-10 - J40) 10/27/2024 Positive ANDRES (antinuclear antibody) (ICD-10 - R76.8) 10/27/2024 Essential hypertension (ICD-10 - I10) 07/21/2024 Primary insomnia (ICD-10 - F51.01) 03/10/2024 Essential hypertension (ICD-10 - I10) 10/27/2024 BMI 29.0-29.9,adult (ICD-10 - Z68.29) 06/23/2024 Other Discharge summary with available lab/diagnostic imaging results obtained and reviewed. Discharge medication list reconciled. Appropriate counseling provided. Moderate Complexity Plan Of Treatment Pending Test Test Name Order Date sleep study 08/30/2023 Next Appt Details Provider Name:Harmony Griffin er, 03/16/2025 11:00:00 AM, [address], [address], [place], [place], [id number], Insurance Providers Payer Name Payer Address Payer Phone Subscriber Number Group Number Insured Name Patient Relationship to Insured Coverage Start Date Coverage End Date MEDICARE PART B [address] [address] [place] [address] [phone] [id number] SOFIA SALDIVAR Self - patient is the insured [facility] [employer] [address] [place] [id number] DEONNA SALDIVAR Spouse - patient is the spouse of the insured Medications Administered Medication Instructions Date of Administration Dosage Notes allergy 12/05/2024 0.35 mL Dog Mix: DOROTA allergy 12/05/2024 0.35 mL Cat Mix: RU allergy 12/09/2024 0.35 mg dog; ru allergy 12/09/2024 0.35 mg cat; dorota allergy 12/17/2024 0.35 mL Cat Mix: DOROTA allergy 12/17/2024 0.35 mL RU allergy 12/19/2024 0.35 mL Cat Mix: DOROTA allergy 12/19/2024 0.35 mL RU allergy 12/25/2024 0.10 mL Blue vial Dog RA allergy 12/25/2024 Blue vial Cat LA allergy 12/29/2024 0.20 mL Mix Dog RA allergy 12/29/2024 0.20 mL Mix Cat LA allergy 12/31/2024 0.30 mL Cat Mix: LT allergy 12/31/2024 0.30 mL Dog Mix: RT allergy 01/05/2025 0.35 mL dog mix: left allergy 01/05/2025 0.35 mL cat mix: right allergy 01/08/2025 0.35 mL Cat Mix RA allergy 01/08/2025 0.35 mL Mix Dog LA allergy 01/13/2025 0.35 mL cat mix-LA allergy 01/13/2025 0.35 mL dog mix-RA allergy 01/15/2025 0.35 mL cat mix LA allergy 01/15/2025 0.35 mL Dog mix RA allergy 01/19/2025 0.35 mL allergy 01/19/2025 0.35 mL allergy 01/21/2025 0.35 mL cat mix- LA allergy 01/21/2025 0.35 mL dog mix- RA allergy 01/27/2025 0.05 mL Dog Mix: LT Ar m allergy 01/27/2025 0.05 mL Cat Mix: RT Ar m allergy 01/30/2025 0.10 mL allergy 01/30/2025 0.10 mL allergy 02/02/2025 0.20 mL allergy 02/02/2025 0.20 mL allergy 02/06/2025 0.30 mL Cat mix RA allergy 02/06/2025 0.30 mL Dog mix LA allergy 02/09/2025 0.35 mL Dog Mix: RT Ar m allergy 02/09/2025 0.35 mL Cat Mix: LT Ar m allergy 02/13/2025 0.35 mL dog mix: RA allergy 02/13/2025 0.35 mL cat mix: LA allergy 02/23/2025 0.35 mL allergy 02/23/2025 0.35 mL allergy 02/25/2025 0.35 mL Mix Dog Left A rm allergy 02/25/2025 0.35 Mix Cat Right Arm allergy 03/02/2025 0.35 mL dog: right arm allergy 03/02/2025 0.35 mL cat: left arm allergy 03/04/2025 0.35 mL mix dog: LA allergy 03/04/2025 0.35 mL mix cat: RA Dexamethasone 11/20/2005 1 mL Dexamethasone 04/10/2018 1 mL Medical (General) History Medical History History ICD Code Hyperlipidemia Hypertension cervical stenosis menopause Covid vaccine x2 Pfizer Jun 2020 Surgical History Surgery Date(Month/Year) Neg proctosig to 60 cm 04/2001 hysterectomy vaginal 11/30/2006 neg colonoscopy, Dr. Hernández 07/03/2005 Cholecystitis, cholelithiasis 12/2008 Cholecystectomy 12/2009 Appendectomy 02/2011 Hospitalization History Reason Date(Month/Year) [facility]-bloody diarrhea-colitis 02/02/2015
== END 2025-03-09 23:59 | disposition home or self-care (01) ==
LOC: RAD 09:26
PROVIDERS: Visit Provider Physician Assistant
DX: M79.641 Pain in right hand (principal)
CPT/HCPCS: 73130

== ENCOUNTER 2025-03-16 12:38 | Outpatient (CLI) | payer MEDICARE, SELFPAY ==
--- OUTSIDE RECORDS SUMMARY | 2019-09-18 12:13 | XMS_ITS | Encounter Summary ---
Author Organization [facility] Address [address] [place] [address] Care Team Providers Care Liquor Store Manager Name Role Phone Parviz Orr MD Primary Care Provider [phone] [phone] Encounter Details Date Type Department Care Team (Late st Contact Info) Description 09/18/2019 1:13 PM EDT Hospital Encounter [facility] PULMONARY & CRITICAL CARE MEDICINE [address] [place] [address] Social History Tobacco Use Types Packs/Day Years Used Date Smoking Tobacco: Former Cigarettes 1.5 23 1 970 - 1992 Smokeless Tobacco: Never Alcohol Use Standard Drinks/Week Comments Yes 0 (1 standard drink = 0.6 oz pur e alcohol) socially Abuse Screen Answer Date Recorded Unsafe at Home or Work/School Not on file Feels Threatened by Someone? Not on file 04/2023 Does Anyone Keep You from Co ntacting Others or Doint Things Outside the Home? Not on file 02/22/2023 Physical Sign of Abuse Present Not on file 1 Housing Stability Answer Date Recorded Current Living Arrangements Not on file 02/11 Potentially Unsafe Housing Conditions Not on barbara e 02/22/2023 Family and Community Support Answer Jimi e Recorded Help with Day-to-Day Activities Not on file 02/22/2023 Lonely or Isolated Not on file 02/22/2023 Employment Answer Date Recorded Do you want help finding or keeping work or a sugey b? Not on file 02/22/2023 Disabilities Answer Date Recorded Concentrating, Remembering, or Making Decisions Difficulty Not on file 02/22/2023 Doing Errands Independently Difficulty Not on fi le 02/22/2023 Education Answer Date Recorded Help with school or training? Not on file Preferred Language Not on file 02/22/2023 Comments No Sex and Gender Information Value Date Recorded Sex Assigned at Not on file Legal Sex Female 10:12 AM EDT Gender Identity Not on file Sexual Orientation Not on file documented as of this encounter Plan of Treatment Not on file documented as of this encounter Procedures Procedure Name Priority Date/Time Associated Diagnosis Comments XR CHEST PA AND LATERAL Routine 09/18/2019 1:21 P M EDT Cough documented in this encounter Results * XR Chest PA & Lateral (09/18/2019 1:21 PM EDT) Anatomical Region Laterality Modality Body, Chest N/A Radiographic Xin ging Parviz Langston MD IMG DIAGNOSTIC IMAGING ORDERABLES Final Result documented in this encounter Visit Diagnoses Not on filedocumented in this encounter Additional Health Concerns Infection Onset Date Last Indicated Resolved Time COVID (rule out) 06/18/2020 06/21/2020 06/25/2020 9:09 PM EST COVID (rule out) 07/30/2020 08/02/2020 08/06/2020 9:08 PM EDT documented as of this encounter Care Teams Liquor Store Manager Relationship Specialty Start Date End Date Parviz Orr MD [address] [facility] [address] [facility] [address] [place] [address] PCP - General Family Medicine 09/18/19 documented as of this encounter
--- OUTSIDE RECORDS SUMMARY | 2021-12-29 10:26 | XMS_ITS | Encounter Summary ---
Author Organization [facility] Address [address] [place] [address] Care Team Providers Care Top Frame Maker Name Role Phone Parviz Orr MD Primary Care Provider +1 [phone] Encounter Details Date Type Department Care Team (Late st Contact Info) Description 12/29/2021 11:26 AM EDT Hospital Encounter [facility] PULMONARY & CRITICAL CARE MEDICINE [address] [place] [address] Social History Tobacco Use Types [...] on filedocumented in this encounter Care Teams Top Frame Maker Relationship Specialty Start Date End Date Parviz Orr MD [address] [place] [facility] [address] [facility] [address] [place] [address] PCP - General Family Medicine 09/18/19 documented as of this encounter
--- OUTSIDE RECORDS SUMMARY | 2025-02-04 05:30 | XMS_ITS ---
[facility] Address [address] [place] [id number] Care Team Providers Care Sales Warehouse Driver Name Role Phone Harmony Orr Primary Care Provider [phone] Ree Forman Unavailable [phone] Allergies No Known Allergies REASON FOR VISIT thumb swollen Medications Medication SIG (Take, Route, Frequency, Duration) Notes Start Date End Date Status Pantoprazole Sodium 40 MG Take 1 tablet by mouth once daily for 90 days; Duration: 90 Active Triamterene-HCTZ 37.5-25 MG 1 tablet in the morning Orally; Duration: 90 days Active Potassium Chloride ER 20 MEQ 1 tablet with food Orally once a day; Duration: 30 days Active amLODIPine Besylate 5 MG Take 1 tablet b y mouth once daily; Duration: 90 days Active Medrol 4 MG as directed Orally 02/04/2025 Active Albuterol Sulfate HFA 108 (90 Base) MCG/ACT INHALE 2 PUFFS BY MOUTH 4 TIMES DAILY NEEDED; Duration: 25 Active Calcium + Vitamin D3 600-5 MG-MCG 1 tab(s) orally TID Active Trelegy Ellipta 100-62.5-25 MCG/ACT Inhale 1 puff by mouth once daily; Duration: 30 Active Multivitamin - 1 tablet Orally Once a day; Duration: 30 day(s) Active Flonase Allergy Relief 50 MCG/ACT 1 spray in each nostril Nasally Twice a day Active Azelastine HCl 137 MCG/SPRAY 2 puffs (1 spray in each nostril) Nasally Twice a day Active Immunizations Vaccine Route Administration Date Status Comme nts Fluzone High Dose (65yr and older) IM Intramuscular 02/04/2025 Administered Vital Signs Blood pressure systolic 132 mm Hg 02/05/20 25 Blood pressure diastolic 78 mm Hg 025 Heart Rate 68 /min 02/04/2025 Height 63.25 in 02/04/2025 Weight 176.4 lbs 02/04/2025 BMI 31 kg/m2 02/04/2025 Encounters Encounter Location Date Provider Diagnosis [facility] [address] [place] [address] [address] [place] [id number] 02/04/2025 Ree Forman Trigger thumb, right thumb M65.311 and Encounter for immunization Z23 Assessments Encounter Date Diagnosis (ICD Code) Assessment Notes Treatment Notes Treatment Clinical Notes Section Notes 02/04/2025 Trigger thumb, right thumb (ICD-10 - M65.311) If no improvement with oral steroids, will send to ortho for injections. 02/04/2025 Encounter for immunization (ICD-10 - Z23) Plan Of Treatment Medication Medication Name Sig Start Date Stop Date Notes Medrol 4 MG as directed Orally 02/04/2025 Treatment Notes Assessment Notes Trigger thumb, right thumb If no improve ment with oral steroids, will send to ortho for injections. Next Appt Details Follow Up: prn, Reason: Provider Name:Harmony Griffin er, 03/23/2025 09:30:00 AM, [address], [address], [place], [phone], Progress Notes * SOFIA OWENSDOB: [birth year] (79 yo F)Acc No.[id number]:02/04/2025 Progress Notes Patient: SOFIA RUDOLPH Provider: HEATH Head :1945 A ge:79 Y S ex:Female Date:02/04/2025 Address:[facility] [address] , [place], [id number] Pcp:Harmony Orr Subjective: * Chief Complaints: * 1 . Thumb swollen. * HPI: W rist/Hand: 79 year old female presents with c/o swelling P t complains of pain in right thumb. Pt states this started on 01/28. Pt states she has some swelling and pain that radiates down to the knuckle. Pt cannot think of any injuries. * ROS: D ERMATOLOGY: no R yvan. n o H raad. G ASTROENTEROLOGY: no N ausea. n o V omiting. n o D iarrhea.? U ROLOGY: no D ifficulty urinating. n o B lood in urine. * Medical History: H yperlipidemia, Hypertension, Cervical stenosis, Menopause, Covid vaccine x2 Pfizer Jun 2020. * Surgical History: N eg proctosig to 60 cm 04/2001, hysterectomy vaginal 11/30/2006, neg colonoscopy, Dr. Hernández 07/03/2005, Cholecystitis, cholelithiasis 12/2008, Cholecystectomy 12/2009, Appendectomy 02/2011. * Hospitalization/Major Diagno stic Procedure: H MH-bloody diarrhea-colitis 02/02/2015. * Family History: F ather: , hypertension, throat cancer. M other: alive 91 yrs. S iblings: brother with mild CVA. 1 brother(s) . 1 son(s) , 2 daughter(s) . . Neg for colon problems. * Social History: C URRENT TOBACCO USE: No . C affeine: yes, frequency:daily. Home smoke detector use: yes. Marital Status: . Occupation: House . Past smoking status: no. * Medications: T aking Azelastine HCl 137 MCG/SPRAY Solution 2 puffs (1 spray in each nostril) Nasally Twice a day , Taking Flonase Allergy Relief 50 MCG/ACT Suspension 1 spray in each nostril Nasally Twice a day , Taking Multivitamin - Tablet 1 tablet Orally Once [...] Tablet 1 tablet in the morning Orally * Allergies: N .K.D.A. Objective: * Vitals: W t: 176.4, Temp: 98.2, BP: 132/78, HR: 68, Nurse: SF, Ht: 63.25, BMI:31. * Examination: G eneral Examination: General Appearance: N AD. C hest: n ormal shape and expansion. H eart: R SR. L ungs: c lear to auscultation. E xtremities: r ight thumb sticks in flexion. Assessment: * Assessment: 1. T unix architect thumb, right thumb - M65.311 (Primary) 2 . E ncounter for immunization - Z23 Plan: * Treatment: * Immunizations: Fluzone High Dose (65yr and older) : 0.5 mL (Route: Intramuscular) given by Page Olguin on Left Deltoid (Encounter for immunization) * Procedure Codes: G 2211 Complex e/m visit add on, 1036F TOBACCO NON-USER, G8783 BP SCR PRFRM RCMDD DEFIND SCR INTVL, G8752 MOST RECENT SYSTOLIC BP < 140MM HG, G8754 MOST RECENT DIASTOLIC BP < 90MM HG, 3075F SYST BP GE 130 - 139MM HG, 3078F DIAST BP < 80 MM HG, G8399 PT W/DXA DOCUMENT OR ORDER * Preventive Medicine: Screening / Special Tests: B one mineral Density , , osteopenia. * Follow Up: p rn * Images: Billing Information: * Visit Code: 19530 Office Visit, Est Pt., Level 3. * Procedure Codes: G2211 Complex e/m visit add on. 1036F TOBACCO NON-USER. G8783 BP SCR PRFRM RCMDD DEFIND SCR INTVL. G8752 MOST RECENT SYSTOLIC BP < 140MM HG. G8754 MOST RECENT DIASTOLIC BP < 90MM HG. 3075F SYST BP GE 130 - 139MM HG. 3078F DIAST BP < 80 MM HG. G8399 PT W/DXA DOCUMENT OR ORDER. * Electronic signature of HEATH Moore on 03/16/2025 at 12:41 PM EST Sign off status: Pending * Provider: HEATH Head Date: 0 02/04/2025 Generated for Ann-Marie zepeda/Bree/Alex on: 1 05/16/2024 12:41 PM EST History and Physical Notes * HPI (History of Present Illness) Category Sub-Category Detail Notes Category Not es Wrist/Hand swelling Pt complains of pain in right thumb. Pt states this started on 01/28. Pt states she has some swelling and pain that radiates down to the knuckle. Pt cannot think of any injuries Examination Category Sub-Category Detail Notes Category Not es General Examination Heart: RSR Lungs: clear to auscultatio n Extremities: right thumb sticks i n flexion General Appearance: NAD Chest: normal shape and exp ansion
--- OUTSIDE RECORDS SUMMARY | 2025-02-06 06:45 | XMS_ITS ---
Author Organization [facility] Address [address] [place] [id number] Care Team Providers Care Design Studio Consultant Name Role Phone Harmony Orr Primary Care Provider REASON FOR VISIT allergy shots Encounters Encounter Location Date Provider Diagnosis [facility] 1210 [facility] 36 [facility] [address] [place] [id number] 02/06/2025 Harmony Orr Non-seasonal allergi c rhinitis due to other allergic trigger J30.89 Assessments Encounter Date Diagnosis (ICD Code) Assessment Notes Treatment Notes Treatment Clinical Notes Section Notes 02/06/2025 Non-seasonal allergic rhinitis due to other allergic trigger (ICD-10 - J30.89) Plan Of Treatment Next Appt Details Provider Name:Harmony Griffin er, 03/23/2025 09:30:00 AM, 1210 [facility] 36 [facility], [address], [place], [phone], Medications Administered Medication Instructions Date of Administration Dosage Notes allergy 02/06/2025 0.30 mL Cat mix RA allergy 02/06/2025 0.30 mL Dog mix [place] Progress Notes * SOFIA OWENSDOB: [birth year] (79 yo F)Acc No.[id number]:02/06/2025 Patient: SOFIA RUDOLPH Provider: Harmony rOr M.D. :1945 A ge:79 Y S ex:Female Date:02/06/2025 Address:[address], [place], [id number] Subjective: * Chief Complaints: * 1 . Allergy shots. * Medical History: Objective: * Vitals: Assessment: * Assessment: 1. N on-seasonal allergic rhinitis due to other allergic trigger - J30.89 (Primary) ? Plan: * Treatment: * Therapeutic Injections: allergy : 0.30 mL (Route: Subcutaneous) given by Ilnaa Campuzano on subcutaneus (Non-seasonal allergic rhinitis due to other allergic trigger) allergy : 0.30 mL (Route: Subcutaneous) given by Ilana Campuzano on subcutaneus (Non-seasonal allergic rhinitis due to other allergic trigger) * Procedure Codes: 9 5117 IMMUNOTHERAPY INJECTIONS * Images: Billing Information: * Visit Code: * Procedure Codes: 97816 IMMUNOTHERAPY INJECTIONS. * Electronic signature of Harmony Orr MD on 03/16/2025 at 12:42 PM EST Sign off status: Pending * Provider: Harmony Orr M.D. Date: 0 02/06/2025 Generated for Ann-Marie zepeda/Bree/eTransmitting on: 05/16/2024 12:42 PM EST
--- OUTSIDE RECORDS SUMMARY | 2025-02-09 04:30 | XMS_ITS ---
Author Organization [facility] Address [address] [facility] 36 [facility] [address] [place] [id number] Care Team Providers Care Wide Load Escort Name Role Phone aHrmony Orr Primary Care Provider [phone] REASON FOR VISIT ALLERGY SHOTS Medications Medication [...] Provider Diagnosis [facility] [address] [facility] [address] [place] [id number] 02/09/2025 Harmony Orr Allergic rhinitis, unspecified seasonality, unspecified trigger J30.9 Assessments Encounter Date Diagnosis (ICD Code) Assessment Notes Treatment Notes Treatment Clinical Notes Section Notes 02/09/2025 Allergic rhinitis, unspecified seasonality, unspecified trigger (ICD-10 - J30.9) Plan Of Treatment Next Appt Details Provider Name:Harmony Griffin er, 03/23/2025 09:30:00 AM, 1210 [facility] 36 [facility], [address], [place], [place], [phone], Medications Administered Medication Instructions Date of Administration Dosage Notes allergy 02/09/2025 0.35 mL Dog Mix: RT Ar m allergy 02/09/2025 0.35 mL Cat Mix: LT Ar m Progress Notes * SOFIA OWENSDOB: [birth year] (79 yo F)Acc No.[id number]:02/09/2025 Patient: SOFIA RUDOLPH Provider: Harmony Orr M.D. :1945 A ge:79 Y S ex:Female Date:02/09/2025 Address:[address] [place] [address] , [place], [id number] Subjective: * Chief Complaints: * 1 [...] Information: * Visit Code: * Procedure Codes: 56543 IMMUNOTHERAPY INJECTIONS. * Electronic signature of Harmony Orr MD on 03/16/2025 at 12:42 PM EST Sign off status: Pending * Provider: Harmony Orr M.D. Date: 0 02/09/2025 Generated for Ann-Marie zepeda/Bree/Katiesmitting on: 05/16/2024 12:42 PM EST
--- OUTSIDE RECORDS SUMMARY | 2025-02-13 10:20 | XMS_ITS ---
Author Organization [facility] Address [address] [facility] 36 [facility] [address] [place] [phone] Care Team Providers Care Mechanic And Welder Name Role Phone Harmony Orr Primary Care [...] Location Date Provider Diagnosis [facility] [address] [facility] 36 [facility] [address] [place] [id number] 02/13/2025 Harmony Orr Allergic rhinitis, unspecified seasonality, unspecified trigger J30.9 Assessments Encounter Date Diagnosis (ICD Code) Assessment Notes Treatment Notes Treatment Clinical Notes Section Notes 02/13/2025 Allergic rhinitis, unspecified seasonality, unspecified trigger (ICD-10 - J30.9) Plan Of Treatment Next Appt Details Provider Name:Harmony Griffin er, 03/23/2025 09:30:00 AM, 1210 [facility] [address], [address], [place], [place], [phone], Medications Administered Medication Instructions Date of Administration Dosage Notes allergy 02/13/2025 0.35 mL dog mix: RA allergy 02/13/2025 0.35 mL cat mix: LA Progress Notes * SOFIA OWENSDOB: [birth year] (79 yo F)Acc No.[id number]:02/13/2025 Patient: SOFIA RUDOLPH Provider: Harmony Orr M.D. :1945 A ge:79 Y S ex:Female Date:02/13/2025 Address:[address] [place] [address] 36 , [facility] [facility], [id number] Subjective: * Chief Complaints: * * Medical [...] Information: * Visit Code: * Procedure Codes: 43216 IMMUNOTHERAPY INJECTIONS. * Electronic signature of Harmony Orr MD on 03/16/2025 at 12:41 PM EST Sign off status: Pending * Provider: Harmony Orr M.D. Date: Generated for Ann-Marie zepeda/Bree/Katiesmitting on: 05/16/2024 12:41 PM EST
--- OUTSIDE RECORDS SUMMARY | 2025-02-23 08:30 | XMS_ITS ---
Author Organization [facility] Address [address] [place] [id number] Care Team Providers Care Senior Credit Officer Name Role Phone Harmony Orr Primary Care Provider [phone] REASON FOR VISIT allergy injection Encounters Encounter Location Date Provider Diagnosis [facility] 1210 [facility] 36 [facility] [address] [place] [id number] 02/23/2025 Harmony Orr Allergic rhinitis, unspecified seasonality, unspecified trigger J30.9 Assessments Encounter Date Diagnosis (ICD Code) Assessment Notes Treatment Notes Treatment Clinical Notes Section Notes 02/23/2025 Allergic rhinitis, unspecified seasonality, unspecified trigger (ICD-10 - J30.9) Plan Of Treatment Next Appt Details Provider Name:Harmony Griffin er, 03/23/2025 09:30:00 AM, 1210 [facility] 36 [facility], [address], [place], [phone], Medications Administered Medication Instructions Date of Administration Dosage Notes allergy 02/23/2025 0.35 mL allergy 02/23/2025 0.35 mL Progress Notes * SOFIA OWENSDOB: [birth year] (79 yo F)Acc No.[id number]:02/23/2025 Patient: SOFIA RUDOLPH Provider: Harmony Orr M.D. :1945 A ge:79 Y S ex:Female Date:02/23/2025 [address] [facility] [address], [place], [id number] Subjective: * Chief Complaints: * 1 . Allergy injection. * Medical History: Objective: * Vitals: Assessment: * Assessment: 1. A llergic rhinitis, unspecified seasonality, unspecified trigger - J30.9 (Primary) ? Plan: * Treatment: * Therapeutic Injections: allergy : 0.35 mL (Route: Subcutaneous) on left deltoid (Pending) allergy : 0.35 mL (Route: Subcutaneous) given by Tawnya Aguilar on right deltoid * Procedure Codes: 9 5117 IMMUNOTHERAPY INJECTIONS * Images: Billing Information: * Visit Code: * Procedure Codes: 16137 IMMUNOTHERAPY INJECTIONS. * Electronic signature of Harmony Orr MD on 03/16/2025 at 12:41 PM EST Sign off status: Pending * Provider: Harmony Orr M.D. Date: Generated for Ann-Marie zepeda/Bree/Valerieitting on: 05/16/2024 12:41 PM EST
--- OUTSIDE RECORDS SUMMARY | 2025-02-25 10:45 | XMS_ITS ---
Author Organization [facility] Address 1210 [facility] 36 [facility] [address] [place] [id number] Care Team Providers Care Alarm Security Or Surveillance Monitor Name Role Phone Harmony Orr Primary Care Provider [phone] REASON FOR VISIT ALLERGY SHOT Medications Medication SIG (Take, Route, Frequency, Duration) Notes Start Date End Date Status Triamterene-HCTZ 37.5-25 MG 1 tablet in the morning Orally; Duration: 90 days Active Potassium Chloride ER 20 MEQ 1 tablet with food Orally once a day; Duration: 30 days Active Pantoprazole Sodium 40 MG Take 1 tablet by mouth once daily for 90 days; Duration: 90 Active amLODIPine Besylate 5 MG Take 1 tablet b y mouth once daily; Duration: 90 days Active Trelegy Ellipta 100-62.5-25 MCG/ACT Inhale 1 puff by mouth once daily; Duration: 30 Active Azelastine HCl 137 MCG/SPRAY 2 puffs (1 spray in each nostril) Nasally Twice a day Active Albuterol Sulfate HFA 108 (90 Base) MCG/ACT INHALE 2 PUFFS BY MOUTH 4 TIMES DAILY NEEDED; Duration: 25 Active Calcium + Vitamin D3 600-5 MG-MCG 1 tab(s) orally TID Active Multivitamin - 1 tablet Orally Once a day; Duration: 30 day(s) Active Flonase Allergy Relief 50 MCG/ACT 1 spray in each nostril Nasally Twice a day Active Encounters Encounter Location Date Provider Diagnosis [facility] 1210 [facility] 36 [facility] [address] [place] [phone] 02/25/2025 Harmony Orr Allergic rhinitis, unspecified seasonality, unspecified trigger J30.9 Assessments Encounter Date Diagnosis (ICD Code) Assessment Notes Treatment Notes Treatment Clinical Notes Section Notes 02/25/2025 Allergic rhinitis, unspecified seasonality, unspecified trigger (ICD-10 - J30.9) Plan Of Treatment Next Appt Details Provider Name:Harmony Griffin er, 03/23/2025 09:30:00 AM, 1210 [facility] 36 [facility], [address], [place], [place], [id number], Medications Administered Medication Instructions Date of Administration Dosage Notes allergy 02/25/2025 0.35 mL Mix Dog Left A rm allergy 02/25/2025 0.35 Mix Cat Right Arm Progress Notes * SOFIA OWENSDOB: [birth year] (79 yo F)Acc No.[id number]:02/25/2025 Patient: SOFIA RUDOLPH Provider: Harmony Orr M.D. :1945 A ge:79 Y S ex:Female Date:02/25/2025 Address:[address] [place] [address] 36 , [phone] Subjective: * Chief Complaints: * 1 . ALLERGY SHOT. * Medical History: * Medications: T aking [...] : 0.35 mL (Route: Subcutaneous) given by Estelita Cueva on left deltoid (Allergic rhinitis, unspecified seasonality, unspecified trigger) allergy : 0.35 (Route: Subcutaneous) given by Estelita Cueva on right deltoid (Allergic rhinitis, unspecified seasonality, unspecified trigger) * Procedure Codes: 9 5117 IMMUNOTHERAPY INJECTIONS * Images: Billing Information: * Visit Code: * Procedure Codes: 82939 IMMUNOTHERAPY INJECTIONS. * Electronic signature of Harmony Orr MD on 03/16/2025 at 12:42 PM EST Sign off status: Pending * Provider: Harmony Orr M.D. Date: Generated for Ann-Marie zepeda/Bree/Valerieitting on: 05/16/2024 12:42 PM EST
--- OUTSIDE RECORDS SUMMARY | 2025-03-02 09:00 | XMS_ITS ---
Author Organization [facility] Address [address]10 [place] [facility] 36 [facility] [address] [place] [id number] Care Team Providers Care Vp Security Name Role Phone Harmony Orr Primary Care Provider [phone] REASON FOR VISIT allergy shot Medications Medication [...] Provider Diagnosis [place] [address] [place] 36 [facility] [address] [place] [phone] 03/02/2025 Harmony Orr Allergic rhinitis, unspecified seasonality, unspecified trigger J30.9 Assessments Encounter Date Diagnosis (ICD Code) Assessment Notes Treatment Notes Treatment Clinical Notes Section Notes 03/02/2025 Allergic rhinitis, unspecified seasonality, unspecified trigger (ICD-10 - J30.9) Plan Of Treatment Next Appt Details Provider Name:Harmony Griffin er, 03/23/2025 09:30:00 AM, 1210 [facility] 36 [facility], [address] , [place], [place], [phone], Medications Administered Medication Instructions Date of Administration Dosage Notes allergy 03/02/2025 0.35 mL dog: right arm allergy 03/02/2025 0.35 mL cat: left arm Progress Notes * SOFIA OWENSDOB: [birth year] (79 yo F)Acc No.[id number]:03/02/2025 Patient: SOFIA RUDOLPH Provider: Harmony Orr M.D. :1945 A ge:79 Y S ex:Female Date:03/02/2025 Address:[address] [place] [address] 36 , [id number] Subjective: * Chief Complaints: * 1 [...] Information: * Visit Code: * Procedure Codes: 26133 IMMUNOTHERAPY INJECTIONS. * Electronic signature of Harmony Orr MD on 03/16/2025 at 12:42 PM EST Sign off status: Pending * Provider: Harmony Orr M.D. Date: Generated for Ann-Marie zepeda/Bree/Katiesmitting on: 05/16/2024 12:42 PM EST
--- OUTSIDE RECORDS SUMMARY | 2025-03-04 10:45 | XMS_ITS ---
Author Organization [facility] Address 1210 [facility] 36 [facility] [address] [place] [id number] Care Team Providers Care Advertising Sales Executive Name Role Phone Harmony Orr Primary Care Provider [phone] REASON FOR VISIT allergy shot Medications Medication [...] Provider Diagnosis [place] [address] [place] [address] [facility] [address] [place] [id number] 03/04/2025 Harmony Orr Allergic rhinitis, unspecified seasonality, unspecified trigger J30.9 Assessments Encounter Date Diagnosis (ICD Code) Assessment Notes Treatment Notes Treatment Clinical Notes Section Notes 03/04/2025 Allergic rhinitis, unspecified seasonality, unspecified trigger (ICD-10 - J30.9) Plan Of Treatment Next Appt Details Provider Name:Harmony Griffin er, 03/23/2025 09:30:00 AM, 1210 [facility] 36 [facility], [address], [place], [place], [phone], Medications Administered Medication Instructions Date of Administration Dosage Notes allergy 03/04/2025 0.35 mL mix dog: LA allergy 03/04/2025 0.35 mL mix cat: RA Progress Notes * SOFIA OWENSDOB: [birth year] (79 yo F)Acc No.[id number]:03/04/2025 Patient: SOFIA RUDOLPH Provider: Harmony Orr M.D. :1945 A ge:79 Y S ex:Female Date:03/04/2025 Address:[address] [place] [address] 36 , [id number] Subjective: * Chief Complaints: * [...] Information: * Visit Code: * Procedure Codes: 99450 IMMUNOTHERAPY INJECTIONS. * Electronic signature of Harmony Orr MD on 03/16/2025 at 12:42 PM EST Sign off status: Pending * Provider: Harmony Orr M.D. Date: Generated for Ann-Marie zepeda/Bree/Valerieitting on: 05/16/2024 12:42 PM EST
--- OUTSIDE RECORDS SUMMARY | 2025-03-12 06:30 | XMS_ITS ---
Author Organization [facility] Address [address] [facility] 36 [facility] [address] [place] [id number] Care Team Providers Care Editor Department Name Role Phone Harmony Orr Primary Care [...] Provider Diagnosis [place] [address] [facility] [address] [place] [id number] 03/12/2025 Harmony Orr Allergic rhinitis, unspecified seasonality, unspecified trigger J30.9 Assessments Encounter Date Diagnosis (ICD Code) Assessment Notes Treatment Notes Treatment Clinical Notes Section Notes 03/12/2025 Allergic rhinitis, unspecified seasonality, unspecified trigger (ICD-10 - J30.9) Plan Of Treatment Next Appt Details Provider Name:Harmony Maganabrian er, 03/23/2025 09:30:00 AM, [facility] [facility] [address] [facility], [address], [place], [place], [id number], Medications Administered Medication Instructions Date of Administration Dosage Notes allergy 03/12/2025 0.35 mL Cat Mix Left A rm allergy 03/12/2025 0.35 mL Dog mix Right Arm Progress Notes * SOFIA OWENSDOB: [birth year] (79 yo F)Acc No.[id number]:03/12/2025 Patient: SOFIA RUDOLPH Provider: Harmony Orr M.D. :1945 A ge:79 Y S ex:Female Date:03/12/2025 Address:[address] [place] [address] [address] , [id number] Subjective: * Chief Complaints: * [...] Information: * Visit Code: * Procedure Codes: 19524 IMMUNOTHERAPY, ONE INJECTION. * Electronic signature of Harmony Orr MD on 03/16/2025 at 12:41 PM EST Sign off status: Pending * Provider: Harmony Orr M.D. Date: Generated for Ann-Marie zepeda/Bree/Valerieitting on: 05/16/2024 12:41 PM EST
--- NOTE | 2025-03-16 12:42 | XR_ITS ---
FINAL REPORT CLINICAL HISTORY: BRONCHIECTASIS W/ ACUTE LOWER RESPIRATORY INFECTION COMPARISON: 09/05/2024 FINDINGS: 2 views of the chest were obtained . The heart is normal in size. The mediastinum is within normal limits. Previously seen right middle lobe pneumonia has resolved. The lungs are clear. There is no pneumothorax. Osseous structures are unremarkable. IMPRESSION: No acute cardiopulmonary process. Reviewed, Interpreted and Dictated by Dilma Mejia MD Transcribed by Brenda Ceron Authenticated and [facility]
--- OUTSIDE RECORDS SUMMARY | 2025-03-16 12:42 | XMS_ITS | Clinical Summary ---
Author Organization [facility] Address [address] [place] [address] Care Team Providers Care Social Science Teacher Name Role Phone Parviz Orr MD Primary Care Provider [phone] Allergies No known active allergies Medications PREMARIN [...] Immunizations Immunization Administration Dates Next Due COVID-19 ([employer]) Purple Cap Monovalent 07/07/2020,06/15/2020 Fluzone High-Dose 65+YRS [...] & [employer] Care Teams Social Science Teacher Relationship Specialty Start Date End Date Parviz Orr MD [address] [place] [address] [place] [id number] PCP - General Family Medicine 09/18/19
--- OUTSIDE RECORDS SUMMARY | 2025-03-16 12:43 | XMS_ITS | Patient Health Record ---
Author Organization [facility] Address [address] RON Cunningham [id number] Care Team Providers Care Slotter Operator Name Role Phone Harmony Orr Primary Care Provider [phone] Quique Jf Unavailable [phone] Ree Forman Unavailable [phone] Allergies No Known Allergies Results Component Value Reference Range Notes CBC Fingerstick (in house) ( Not yet reviewed by provider) Interpretation: Performing Lab: Notes/Report: wbc 17.4 3.5 - 10 lym 22.0 15 - 50 mid 5.4 2 - 15 gran 72.6 35 - 80 rbc 4.94 3.5 - 5.5 hgb 15.1 11.5 - 16.5 hct 44.9 35 - 55 mcv 90.8 75 - 100 mch 30.6 25 - 35 mchc 33.7 31 - 38 plat 217 100 - 400 Influenza Screen (in house) Reviewed date:06/13/2024 10:01:59 AM Interpretation: Performing Lab: Notes/Report: results Neg CBC Venipuncture (in house) Reviewed date:06/13/2024 10:01:59 [...] - 38 platlet 246 100 - 400 P-Comprehensive Metabolic Pa willam (CMP) Reviewed date:06/13/2024 10:01:59 AM Interpretation: Performing Lab: Notes/Report: CLIA: [id number] Robert Mohamud MD, Spring Production Supervisor [address] [place] [address] , [place] [address] Test performed by [email or web address] Sodium 129 135-145 mmol/L Potassium 3.4 3.5-5.3 [...] 1.0 <0.2-1.2 mg/dL A/G Ratio 1.2 1.1-2.5 Covid test (in house) Reviewed date:06/13/2024 10:01:59 AM Interpretation: Performing Lab: Notes/Report: Result: Neg CXR Reviewed date:06/13/2024 10:01:59 AM Interpretation: Performing Lab: Notes/Report: P-Basic Metabolic Panel (BMP ) Reviewed date:07/03/2024 09:53:22 AM Interpretation:Normal Performing Lab: Notes/Report: CLIA: [id number] Robert Mohamud MD, Spring Production Supervisor [address] [place] [address] , [address], [place] [address] Test performed by [facility] Sodium 139 135-145 mmol/L Potassium 4.2 3.5-5.3 mmol/L Chloride 100 97-108 mmol/L CO2 27 22-32 mmol/L Glucose 98 65-99 mg/dL BUN 19 8-23 mg/dL Creatinine 0.94 0.50-1.00 mg/dL Calcium 10.4 8.6-10.4 mg/dL eGFR by Creatinine 63 >59 mL/min/1.73m2 Influenza Screen (in house) Reviewed date:07/17/2024 05:59:17 PM Interpretation: Performing Lab: Notes/Report: results Neg CBC Fingerstick (in house) Reviewed date:07/17/2024 05:59:26 [...] - 38 plat 198 100 - 400 CXR Reviewed date:07/21/2024 10:42:35 AM Interpretation:unremarkable Performing Lab: Notes/Report: unremarkable CBC Fingerstick (in house) Reviewed date:09/05/2024 04:50:35 [...] plat 242 100 - 400 CXR Reviewed date:09/11/2024 10:10:11 AM Interpretation: Performing Lab: Notes/Report: Influenza Screen (in house) Reviewed date:09/12/2024 08:23:56 AM Interpretation:neg Performing Lab: Notes/Report: neg results neg CBC Fingerstick (in house) Reviewed date:09/12/2024 08:23:56 [...] - 38 plat 331 100 - 400 CBC Fingerstick (in house) Reviewed date:12/11/2024 12:36:33 [...] - 38 plat 216 100 - 400 P-Comprehensive Metabolic Pa willam (CMP) Reviewed date:11/11/2024 03:40:59 PM Interpretation:Normal Performing Lab: Notes/Report: Test performed by [email or web address] [address] [place] [address] , [address], [place] [address] Robert Mohamud MD, Spring Production Supervisor CLIA: [id number] Sodium 138 135-145 mmol/L Potassium 4.1 3.5-5.3 [...] 0.3 <0.2-1.2 mg/dL A/G Ratio 1.7 1.1-2.5 P-Sed Rate (ESR) Reviewed date:11/11/2024 03:40:59 PM Interpretation:Normal Performing Lab: Notes/Report: Test performed by [facility] [place] [address] , [address], [place] [address] Robert Mohamud MD, Spring Production Supervisor CLIA: [id number] Erythrocyte Sedimentation Rate (ESR), Automated 29 <31 mm/hr H-BMP Reviewed date:06/13/2024 10:01:59 AM Interpretation: Performing Lab: Notes/Report: NA 129 136-145 mmol/L K 3.2 3.5-5.1 mmoL/L CL 90 98-107 mmol/L CO2 26 22.0-30.0 mmol/L GAP 16.2 5-15 mEq/L BUN 18 7-17 mg/dl CREATT 0.90 0.52-1.04 mg/dl CRCLE 58 50-200 mL/min GFRAA 74 >60 ML/MIN EGFR 61 >60 ml/min GLU 102 74-100 mg/dl CA 9.9 8.4-10.2 mg/dl H-Culture, Blood Reviewed date:06/18/2024 09:48:58 AM Interpretation: Performing Lab: Notes/Report: CUBLD NO GROWTH AFTER 5 DAYS CUBLD NO GROWTH AFTER 5 DAYS H-CRP Reviewed date:06/13/2024 10:01:59 AM Interpretation: Performing Lab: Notes/Report: CRP 387.5 0-4 mg/L H-Sed Rate Reviewed date:06/13/2024 10:01:59 AM Interpretation: Performing Lab: Notes/Report: ESR 23 0-30 mm/hr H-Lactic Acid Reviewed date:06/13/2024 10:01:59 AM Interpretation: Performing Lab: Notes/Report: Comment Repeat 2nd or 3rd lactic acid to reflex if initial or subseq level > 2 LACTIC 1.3 0.7-2.1 mmol/L H-Troponin I Reviewed date:06/13/2024 10:01:59 AM Interpretation: [...] Biotin is occasionally prescribed for medical conditions. H-CBC Reviewed date:06/13/2024 10:01:59 AM Interpretation: Performing [...] 0.0 0.0-0.4 K/mm3 BA# 0.0 0-0.2 K/mm3 H-DIFF Reviewed date:06/13/2024 10:01:59 AM Interpretation: Performing Lab: Notes/Report: HARSH MANUAL DIFFERENTIAL MANUAL DIFF TCC 100 NEUT%M 80 42-76 % LYMPH%M 14 10-50 % MONO%M 6 2-9 % PLTE Normal RM Normal H-BMP Reviewed date:06/13/2024 04:20:11 PM Interpretation: Performing Lab: Notes/Report: NA 126 136-145 mmol/L K 3.5 3.5-5.1 mmoL/L CL 94 98-107 mmol/L CO2 24 22.0-30.0 mmol/L GAP 11.5 5-15 mEq/L BUN 11 7-17 mg/dl Delta: 15 on 06/13/24-0553 CREATT 0.80 0.52-1.04 mg/dl CRCLE 58 50-200 mL/min GFRAA 84 >60 ML/MIN EGFR 70 >60 ml/min GLU 112 74-100 mg/dl CA 8.7 8.4-10.2 mg/dl H-CMP Reviewed date:06/13/2024 10:01:59 AM Interpretation: Performing Lab: Notes/Report: NA 128 136-145 mmol/L K 3.0 3.5-5.1 mmoL/L CRITICAL RESULT Results called and read back/verified to: ANGELES on 06/13/24 at 0653 By Cheli Sotelo, MACHINE SHOP INSPECTOR CL 94 98-107 mmol/L CO2 25 22.0-30.0 [...] AGRATIO 1.1 1.1-1.8 ALP 128 38-126 U/L H-Magnesium Reviewed date:06/13/2024 10:01:59 AM Interpretation: Performing Lab: Notes/Report: MG 1.8 1.6-2.3 mg/dl H-Sputum Culture with Gram Axel underwood Reviewed date:06/15/2024 07:41:24 PM Interpretation: Performing Lab: Notes/Report: Comment: Induce w/3ml NS neb tx if necessary GS Gram Stain: GS <10 White Blood Cells/LPF GS <10 Epithelial Cells / LPF GS Rare Gram Positive Cocci CUSPU Normal Respiratory Tammi H-COVIDPANEL Reviewed date:06/13/2024 12:13:16 PM Interpretation:neg Performing Lab: Notes/Report: Is patient a resident in a congregate care setting? No Date of Symptom onset Is patient currently in ICU? No Is patient currently hospitalized? Yes Is patient an [facility] employee? N Is the patient employed in healthcare? No Does the patient have COVID symptoms? Yes Is this the 1st COVID test for the patient? No No ADENOQIA Not Detected NotDetected CORONAHKU1 Not Detected NotDetected [id number] Not Detected NotDetected [id number] Not Detected NotDetected NBJFXYE01 Not Detected NotDetected METAPNEUMO Not Detected NotDetected RHINOENTER Not Detected NotDetected INFLUAPCR Not Detected NotDetected FLUAH1 Not Detected NotDetected [id number] Not Detected NotDetected INFLUAH3 Not Detected NotDetected [...] Not Detected NotDetected MYCOPLASM Not Detected NotDetected H-CBC Reviewed date:06/14/2024 11:03:12 AM Interpretation: Performing [...] 0.0 0.0-0.4 K/mm3 BA# 0.0 0-0.2 K/mm3 H-CMP Reviewed date:06/14/2024 11:03:12 AM Interpretation: Performing Lab: Notes/Report: NA 131 136-145 mmol/L K 4.1 3.5-5.1 mmoL/L CL 100 98-107 mmol/L CO2 25 22.0-30.0 mmol/L GAP 10.1 5-15 mEq/L BUN 8 7-17 mg/dl Delta: 11 on 06/13/24 CREATT 0.60 0.52-1.04 mg/dl Delta: 0.80 on 06/13/24 CRCLE 58 50-200 mL/min GFRAA 118 >60 ML/MIN Delta: 84 on 06/13/24 EGFR 97 >60 ml/min GLU 104 74-100 mg/dl CA 8.9 8.4-10.2 mg/dl BILIT 0.6 0.2-1.3 mg/dl AST 91 14-36 U/L Delta: 39 on 06/13/24 ALT 62 12-78 U/L Delta: 27 on 06/13/24 TP 6.1 6.3-8.2 g/dl ALB 3.3 3.5-5.0 g/dl GLOB 2.8 1.3-3.2 g/dL AGRATIO 1.2 1.1-1.8 ALP 132 38-126 U/L H-Glycohemoglobin A1C Reviewed date:06/15/2024 07:41:24 PM Interpretation: Performing Lab: Notes/Report: HGBA1C 5.9 4.0-6.0 % < 6% Non-Diabetic Level < 7% Controlled Diabetic Level > 8% Poorly Controlled Diabetic Level H-CBC Reviewed date:06/15/2024 07:41:24 PM Interpretation: Performing Lab: Notes/Report: WBC 13.6 4.8-10.8 K/mm3 RBC 3.75 4.20-5.40 M/mm3 HGB 10.8 12.2-16.2 g/dL Delta: 9.8 on 06/14/24-599 HCT 32.9 37.0-47.0 % MCV 87.7 81-99 fl MCH 28.8 27.0-31.2 pg MCHC 32.8 31.8-35.4 g/dL RDW 13.0 11.5-17.5 % PLT 310 142-424 K/mm3 Delta: 210 on 06/14/24 MPV 9.6 7.4-10.4 fl NE% 77.6 37.0-80.0 % LY% 14.8 10-50 % MO% 5.8 1.7-9.3 % EO% 0.1 0.1-12.0 % BA% 0.3 0.1-2.0 % NE# 10.5 1.8-7.8 K/mm3 LY# 2.0 0.7-4.5 K/mm3 MO# 0.8 0.1-1.0 K/mm3 EO# 0.0 0.0-0.4 K/mm3 BA# 0.0 0-0.2 K/mm3 H-BMP Reviewed date:06/15/2024 07:41:24 PM Interpretation: Performing Lab: Notes/Report: NA 134 136-145 mmol/L K 4.4 3.5-5.1 mmoL/L CL 100 98-107 mmol/L CO2 28 22.0-30.0 mmol/L GAP 10.4 5-15 mEq/L BUN 11 7-17 mg/dl Delta: 8 on 06/14/24 CREATT 0.70 0.52-1.04 mg/dl CRCLE 59 50-200 mL/min GFRAA 98 >60 ML/MIN EGFR 81 >60 ml/min GLU 95 74-100 mg/dl CA 10.0 8.4-10.2 mg/dl Medications Medication SIG (Take, Route, Frequency, Duration) Notes Start Date End Date Status methylPREDNISolone 4 MG as directed Orally 025 Active Azelastine HCl 137 MCG/SPRAY 2 puffs [...] 4 TIMES DAILY NEEDED; Duration: 25 Active Immunizations Vaccine Route Administration Date Status [...] W/U Status Risk Notes Problem Essential hypertension (61265199) Essential hypertension (I10) Active confirmed Problem Cough (56082255) Cough (R05) Active confirmed Problem Hearing loss (94759720) Hearing loss (H91.90) Active confirmed Problem Mixed hyperlipidemia (929534695) Mixed hyperlipidemia (E78.2) Active confirmed Problem Hyperlipidemia (49172491) Hyperlipidemia, unspecified (E78.5) Active confirmed Problem Primary insomnia (3374301) Primary insomnia (F51.01) Active confirmed Problem Acute exacerbation of bronchiectasis (060447354) Bronchiectasis with acute lower respiratory infection (J47.0) Active confirmed Problem Angiotensin-convert ing-enzyme inhibitor adverse reaction (010229091) Adverse effect of angiotensin-conver ting-enzyme inhibitors, initial encounter (T46.4X5A) Active confirmed Problem Gastroesophageal reflux disease without esophagitis (890844924) Gastroesophageal reflux disease without esophagitis (K21.9) Active confirmed Problem Headache (55575134) Periodic hea dache syndrome, not intractable (G43.C0) Active confirmed Problem Interstitial lung disease (312238213) Interstitial lung disease (J84.9) Active confirmed Problem Allergic rhinitis (84104019) Seasonal allergic rhinitis due to other allergic trigger (J30.89) Active confirmed Problem Allergic rhinitis (69751903) Non-seasonal allergic rhinitis due to other allergic trigger (J30.89) Active confirmed Problem Exacerbation of moderate persistent asthma (disorder) (093283373) Moderate persistent asthmatic bronchitis with acute exacerbation (J45.41) Active confirmed Problem Uncomplicated moderate persistent asthma (787853379) Moderate persistent asthmatic bronchitis without complication (J45.40) Active confirmed Problem Allergic rhinitis (43787380) Allergic rhinitis, unspecified seasonality, unspecified trigger (J30.9) Active confirmed Problem Plain X-ray of chest abnormal (finding) (6134884090) Abnormal chest x-ray (R93.89) Active confirmed Problem History of colitis (783247912) History of colitis (Z87.19) Active confirmed Problem Pneumonia (606852526) Pneumonia of right upper lobe due to infectious organism (J18.9) Active confirmed Problem Acquired bronchiectasis (888131381) Acquired bronchiectasis (J47.9) Active confirmed Vital Signs Heart Rate 71 /min 03/16/2025 Blood pressure diastolic 60 mm Hg 03/16/2025 Height 63.25 in 03/16/2025 Blood pressure systolic 128 mm Hg 03/16/2025 Weight 178.6 lbs 03/16/2025 BMI 31.38 kg/m2 03/16/2025 Encounters Encounter Location Date Provider Diagnosis [facility] [address] [facility] [address] [place], [place] [id number] 06/12/2024 Harmony Orr Respiratory infectio n J98.8 and Essential hypertension I10 [facility] [address] [facility] [address] [place] [id number] 06/23/2024 Harmony Orr Bronchiectasis with acute lower respiratory infection J47.0 [facility] [address] [facility] [address] [place], [place] [id number] 06/30/2024 Harmony Orr Bronchiectasis witho ut complication J47.9 [facility] [address] [facility] [address] [place] [id number] 07/17/2024 Harmony Orr Acquired bronchiecta sis J47.9 [facility] [address] [place], [place] [id number] 07/21/2024 Harmony Orr Moderate persistent asthmatic bronchitis with acute exacerbation J45.41 ; Acquired bronchiectasis J47.9 and Primary insomnia F51.01 [facility] [address] [facility] [address] [place], [place] [id number] 07/28/2024 Harmony Orr Acquired bronchiecta sis J47.9 [facility] [address] [facility] [address] [place] [id number] 09/05/2024 Ree Crowdy Bronchitis J40 [facility] [address] [facility] [address] [place], [place] [id number] 09/11/2024 Ree Crowdy Bronchitis J40 [facility] [address] [facility] [address] [place] [id number] 10/27/2024 Harmony Orr Interstitial lung disease J84.9 ; Positive ANDRES (antinuclear antibody) R76.8 ; Essential hypertension I10 and BMI 29.0-29.9,adult Z68.29 [facility] [address] [place] [id number] 12/05/2024 J Jeffrey Kirby Allergic rhinitis, unspecified seasonality, unspecified trigger J30.9 [facility] [address] [place], [place] [id number] 12/09/2024 J Jeffrey Kirby Allergic rhinitis, unspecified seasonality, unspecified trigger J30.9 [facility] [address] [place] [id number] 12/11/2024 Jf [place] Acute URI J06.9 [facility] [address] [place] [id number] 12/17/2024 J Jeffrey Kirby Allergic rhinitis, unspecified seasonality, unspecified trigger J30.9 [facility] [address] [place] [id number] 12/19/2024 J Jeffrey Kirby Allergic rhinitis, unspecified seasonality, unspecified trigger J30.9 [facility] [address] [place] [id number] 12/25/2024 J Jeffrey Kirby Allergic rhinitis, unspecified seasonality, unspecified trigger J30.9 [facility] [address] [place] [id number] 12/29/2024 J Jeffrey Kirby Allergic rhinitis, unspecified seasonality, unspecified trigger J30.9 [facility] [address] [place] [id number] 12/31/2024 J Jeffrey Kirby Allergic rhinitis, unspecified seasonality, unspecified trigger J30.9 [facility] [address] [place] [id number] 01/05/2025 J Jeffrey Kirby Allergic rhinitis, unspecified seasonality, unspecified trigger J30.9 [facility] [address] [place] [id number] 01/08/2025 J Jeffrey Kirby Allergic rhinitis, unspecified seasonality, unspecified trigger J30.9 [facility] [address] [place] [id number] 01/13/2025 J Jeffrey Orr Allergic rhinitis, unspecified seasonality, unspecified trigger J30.9 [facility] [address] [place] [id number] 01/15/2025 J Jeffrey Orr Allergic rhinitis, unspecified seasonality, unspecified trigger J30.9 [facility] [address] [place] [id number] 01/19/2025 J Jeffrey Orr Allergic rhinitis, unspecified seasonality, unspecified trigger J30.9 [facility] [address] [place] [id number] 01/21/2025 J Jeffrey Orr Allergic rhinitis, unspecified seasonality, unspecified trigger J30.9 [facility] [address] [place] [id number] 01/27/2025 J Jeffrey Orr Allergic rhinitis, unspecified seasonality, unspecified trigger J30.9 [facility] [address] [place] [id number] 01/30/2025 J Jeffrey Orr Seasonal allergic rhinitis due to other allergic trigger J30.89 [facility] [address] [place] [id number] 02/02/2025 J Jeffrey Orr Non-seasonal allergi c rhinitis due to other allergic trigger J30.89 [facility] [address] [place] [id number] 02/04/2025 Ree Forman Trigger thumb, right thumb M65.311 and Encounter for immunization Z23 [facility] [address] [place] [id number] 02/06/2025 J Jeffrey Orr Non-seasonal allergi c rhinitis due to other allergic trigger J30.89 [facility] [address] [place] [id number] 02/09/2025 J Jeffrey Orr Allergic rhinitis, unspecified seasonality, unspecified trigger J30.9 [facility] [address] [place] [id number] 02/13/2025 Harmony Orr Allergic rhinitis, unspecified seasonality, unspecified trigger J30.9 [facility] [address] [place] [id number] 02/23/2025 J Jeffrey Orr Allergic rhinitis, unspecified seasonality, unspecified trigger J30.9 [facility] [address] [place] [id number] 02/25/2025 Harmony Orr Allergic rhinitis, unspecified seasonality, unspecified trigger J30.9 [facility] [address] [place] [id number] 03/02/2025 Harmony Orr Allergic rhinitis, unspecified seasonality, unspecified trigger J30.9 [facility] [address] [facility] [address] [place] [id number] 03/04/2025 Harmony Orr Allergic rhinitis, unspecified seasonality, unspecified trigger J30.9 [facility] [address] [facility] [address] [place] [id number] 03/12/2025 Harmony Orr Allergic rhinitis, unspecified seasonality, unspecified trigger J30.9 [facility] [address] [facility] [address] [place] [id number] 03/16/2025 Harmony Orr Bronchiectasis with acute lower respiratory infection J47.0 ; Interstitial lung disease J84.9 and Seasonal allergic rhinitis due to other allergic trigger J30.89 [facility] [address] [facility] [address] [place] [id number] 06/16/2024 Harmony Orr [facility] [address] [facility] [address] [place] [id number] 03/02/2025 Harmony Orr Assessments Encounter Date Diagnosis (ICD Code) Assessment Notes Treatment Notes Treatment Clinical Notes Section Notes 06/12/2024 Essential hypertension (ICD-10 - I10) 06/12/2024 Respiratory infection (ICD-10 - J98.8) 06/23/2024 Bronchiectasis with acute lower respiratory infection (ICD-10 - J47.0) Prednisone 40mg daily for 14 days (post discharge), then 20mg for 14 days, then 10mg for 14 days. Needs appt with Dr. Dennis. 06/30/2024 Bronchiectasis without complication (ICD-10 - J47.9) 07/17/2024 Acquired bronchiectasis (ICD-10 - J47.9) 10/27/2024 Interstitial lung disease [...] unspecified seasonality, unspecified trigger (ICD-10 - J30.9) 01/13/2025 Allergic rhinitis, unspecified seasonality, unspecified trigger (ICD-10 - J30.9) 01/15/2025 Allergic rhinitis, unspecified seasonality, unspecified trigger (ICD-10 - J30.9) 01/19/2025 Allergic rhinitis, unspecified seasonality, unspecified trigger (ICD-10 - J30.9) 01/21/2025 Allergic rhinitis, unspecified seasonality, unspecified trigger (ICD-10 - J30.9) 01/27/2025 Allergic rhinitis, unspecified seasonality, unspecified trigger (ICD-10 - J30.9) 01/30/2025 Seasonal allergic rhinitis due to other allergic trigger (ICD-10 - J30.89) 02/02/2025 Non-seasonal allergic rhinitis due to other allergic trigger (ICD-10 - J30.89) 02/04/2025 Trigger thumb, right thumb (ICD-10 - M65.311) If no improvement with oral steroids, will send to ortho for injections. 02/04/2025 Encounter for immunization (ICD-10 - Z23) 02/06/2025 Non-seasonal allergic rhinitis due to other allergic trigger (ICD-10 - J30.89) 02/09/2025 Allergic rhinitis, unspecified seasonality, unspecified trigger (ICD-10 - J30.9) 02/13/2025 Allergic rhinitis, unspecified seasonality, unspecified trigger (ICD-10 - J30.9) 02/23/2025 Allergic rhinitis, unspecified seasonality, unspecified trigger (ICD-10 - J30.9) 02/25/2025 Allergic rhinitis, unspecified seasonality, unspecified trigger (ICD-10 - J30.9) 03/02/2025 Allergic rhinitis, unspecified seasonality, unspecified trigger (ICD-10 - J30.9) 03/04/2025 Allergic rhinitis, unspecified seasonality, unspecified trigger (ICD-10 - J30.9) 03/12/2025 Allergic rhinitis, unspecified seasonality, unspecified trigger (ICD-10 - J30.9) 03/16/2025 Bronchiectasis with acute lower respiratory infection (ICD-10 - J47.0) MEDROL DOSEPACK VERBAL ORDERED 07/21/2024 Moderate persistent asthmatic bronchitis with acute exacerbation (ICD-10 - J45.41) 07/21/2024 Acquired bronchiectasis (ICD-10 - J47.9) 07/28/2024 Acquired bronchiectasis (ICD-10 - J47.9) 09/05/2024 Bronchitis (ICD-10 - J40) 09/11/2024 Bronchitis (ICD-10 - J40) WBC is normal. No need for further abx. Will start on steroids and continue cough medication. 10/27/2024 Positive ANDRES (antinuclear antibody) (ICD-10 - R76.8) 10/27/2024 Essential hypertension (ICD-10 - I10) 03/16/2025 Interstitial lung disease (ICD-10 - J84.9) 07/21/2024 Primary insomnia (ICD-10 - F51.01) 03/16/2025 Seasonal allergic rhinitis due to other allergic trigger (ICD-10 - J30.89) 10/27/2024 BMI 29.0-29.9,adult (ICD-10 - Z68.29) 06/23/2024 Other Discharge summary with available lab/diagnostic imaging results obtained and reviewed. Discharge medication list reconciled. Appropriate counseling provided. Moderate Complexity Plan Of Treatment Pending Test Test Name Order Date CXR 03/16/2025 CBC Fingerstick (in house) 03/16/2025 sleep study 08/30/2023 Next Appt Details Provider Name:Harmony Griffin er, 03/23/2025 09:30:00 AM, [address], [place], [place], [id number], Insurance Providers Payer Name Payer Address Payer Phone Subscriber Number Group Number Insured Name Patient Relationship to Insured Coverage Start Date Coverage End Date MEDICARE PART B [address] [address] [place] [id number] SOFIA SALDIVAR Self - patient is the insured [facility] [address] [place] [address] [phone] [id number] DEONNA SALDIVAR Spouse - patient is the [...] allergy 03/04/2025 0.35 mL mix cat: RA allergy 03/12/2025 0.35 mL Cat Mix Left A rm allergy 03/12/2025 0.35 mL Dog mix Right Arm allergy 03/16/2025 0.35 mL allergy 03/16/2025 0.35 mL Dexamethasone 11/20/2005 1 mL Dexamethasone 04/10/2018 1 mL Medical (General) History Medical History History ICD Code Hyperlipidemia Hypertension cervical stenosis menopause Covid vaccine x2 Pfizer Jun 2020 Surgical History Surgery Date(Month/Year) Neg proctosig to 60 cm 04/2001 hysterectomy vaginal 11/30/2006 neg colonoscopy, Dr. Hernández 07/03/2005 Cholecystitis, cholelithiasis 12/2008 Cholecystectomy 12/2009 Appendectomy 02/2011 Hospitalization History Reason Date(Month/Year) [facility]-bloody diarrhea-colitis 02/02/2015
== END 2025-03-16 23:59 | disposition home or self-care (01) ==
LOC: RAD 12:39
PROVIDERS: PCP Family Medicine; Visit Provider Family Medicine
DX: J47.0 Bronchiectasis with acute lower respiratory infection (principal)
CPT/HCPCS: 71046

== ENCOUNTER 2025-03-24 09:58 | Outpatient (CLI) | payer MEDICARE, SELFPAY ==
--- OUTSIDE RECORDS SUMMARY | 2019-09-18 12:13 | XMS_ITS | Encounter Summary ---
Author Organization [facility] Address [address] [place] [address] Care Team Providers Care Mortar Carrier Name Role Phone Parviz Orr MD Primary Care Provider [phone] [phone] Encounter Details Date Type Department Care Team (Late st Contact Info) Description 09/18/2019 1:13 PM EDT Hospital Encounter [facility] PULMONARY & CRITICAL CARE MEDICINE [address] [place] [address] Social History Tobacco Use Types [...] documented as of this encounter Care Teams Mortar Carrier Relationship Specialty Start Date End Date Parviz Orr MD [address] [facility] [address] [facility] [address] [place] [address] PCP - General Family Medicine 09/18/19 documented as of this encounter
--- OUTSIDE RECORDS SUMMARY | 2021-12-29 10:26 | XMS_ITS | Encounter Summary ---
Author Organization [facility] Address [address] [place] [address] Care Team Providers Care Senior Counsel Name Role Phone Parviz Orr MD Primary Care Provider [phone] [phone] Encounter Details Date Type Department Care Team (Late st Contact Info) Description 12/29/2021 11:26 AM EDT Hospital Encounter [facility] PULMONARY & CRITICAL CARE MEDICINE [address] [place] [address] Social History Tobacco Use Types Packs/Day Years Used Date Smoking Tobacco: Former Cigarettes 1.5 23 1 970 - 1993 Smokeless Tobacco: Never Alcohol Use Standard Drinks/Week [...] Comments XR CHEST PA AND LATERAL Routine 12/29/2021 11:42 AM EDT Asthma-COPD overlap syndrome documented in this encounter Results * XR Chest PA & Lateral (12/29/2021 11:42 AM EDT) Anatomical Region Laterality Modality Body, Chest N/A Radiographic Xin ging Narrative 12/29/2021 12:01 PM EDT PA and lateral chest x-rays obtained Cardiac silhouette is at the upper limits of normal size CT ratio is 14 x 28 No effusions, infiltrates, or consolidation Parviz Langston MD IMG DIAGNOSTIC IMAGING ORDERABLES Final Result documented in this encounter Visit Diagnoses Not on filedocumented in this encounter Care Teams Senior Counsel Relationship Specialty Start Date End Date Parviz Orr MD [address] [facility] [address] [facility] [address] [place] [address] PCP - General Family Medicine 09/18/19 documented as of this encounter
--- OUTSIDE RECORDS SUMMARY | 2025-02-06 06:45 | XMS_ITS ---
Author Organization [facility] Address [address] [place] [id number] Care Team Providers Care Pottery Decorator Name Role Phone Harmony Orr Primary Care Provider [phone] REASON FOR VISIT allergy shots Encounters Encounter Location Date Provider Diagnosis [facility] 1210 [facility] 36 [facility] [address] [place] [id number] 02/06/2025 Harmony Orr Non-seasonal allergi c rhinitis due to other allergic trigger J30.89 Assessments Encounter Date Diagnosis (ICD Code) Assessment Notes Treatment Notes Treatment Clinical Notes Section Notes 02/06/2025 Non-seasonal allergic rhinitis due to other allergic trigger (ICD-10 - J30.89) Plan Of Treatment Next Appt Details Provider Name:Harmony Griffin er, 07/24/2025 10:00:00 AM, 1210 [facility] 36 [facility], [address], [place], [id number], Medications Administered Medication Instructions Date of Administration Dosage Notes allergy 02/06/2025 0.30 mL Cat mix RA allergy 02/06/2025 0.30 mL Dog mix [place] Progress Notes * SOFIA OWENSDOB: [birth year] (79 yo F)Acc No.[id number]:02/06/2025 Patient: SOFIA RUDOLPH Provider: Harmony Orr M.D. :1945 A ge:79 Y S ex:Female Date:02/06/2025 Address:[address], [place], [id number] Subjective: * Chief Complaints: * 1 . Allergy shots. * Medical History: Objective: * Vitals: Assessment: * Assessment: 1. N on-seasonal allergic rhinitis due to other allergic trigger - J30.89 (Primary) ? Plan: * Treatment: * Therapeutic Injections: allergy : 0.30 mL (Route: Subcutaneous) given by Ilana Campuzano on subcutaneus (Non-seasonal allergic rhinitis due to other allergic trigger) allergy : 0.30 mL (Route: Subcutaneous) given by Ilana Campuzano on subcutaneus (Non-seasonal allergic rhinitis due to other allergic trigger) * Procedure Codes: 9 5117 IMMUNOTHERAPY INJECTIONS * Images: Billing Information: * Visit Code: * Procedure Codes: 78516 IMMUNOTHERAPY INJECTIONS. * Electronic signature of Harmony Orr MD on 03/24/2025 at 10:05 AM EST Sign off status: Pending * Provider: Harmony Orr M.D. Date: 0 02/06/2025 Generated for Ann-Marie zepeda/Bree/eTransmitting on: 05/24/2024 10:05 AM EST
--- OUTSIDE RECORDS SUMMARY | 2025-02-09 04:30 | XMS_ITS ---
Author Organization [facility] Address [address] [facility] 36 [facility] [address] [place] [phone] Care Team Providers Care Process Safety Engineer Name Role Phone Harmony Orr Primary Care Provider [phone] REASON FOR VISIT ALLERGY SHOTS Medications Medication SIG (Take, Route, Frequency, Duration) Notes Start Date End Date Status Flonase Allergy Relief 50 MCG/ACT 1 spray in each nostril Nasally Twice a day Active Azelastine HCl 137 MCG/SPRAY 2 puffs (1 spray in each nostril) Nasally Twice a day Active Albuterol Sulfate HFA 108 (90 Base) MCG/ACT INHALE 2 PUFFS BY MOUTH 4 TIMES DAILY NEEDED; Duration: 25 Active Multivitamin - 1 tablet Orally Once a day; Duration: 30 day(s) Active Calcium + Vitamin D3 600-5 MG-MCG 1 tab(s) orally TID Active Potassium Chloride ER 20 MEQ 1 tablet with food Orally once a day; Duration: 30 days Active Triamterene-HCTZ 37.5-25 MG 1 tablet in the morning Orally; Duration: 90 days Active amLODIPine Besylate 5 MG Take 1 tablet b y mouth once daily; Duration: 90 days Active Pantoprazole Sodium 40 MG Take 1 tablet by mouth once daily for 90 days; Duration: 90 Active Trelegy Ellipta 100-62.5-25 MCG/ACT Inhale 1 puff by mouth once daily; Duration: 30 Active Encounters Encounter Location Date Provider Diagnosis [facility] [address] [facility] [address] [place] [id number] 02/09/2025 Harmony Orr Allergic rhinitis, unspecified seasonality, unspecified trigger J30.9 Assessments Encounter Date Diagnosis (ICD Code) Assessment Notes Treatment Notes Treatment Clinical Notes Section Notes 02/09/2025 Allergic rhinitis, unspecified seasonality, unspecified trigger (ICD-10 - J30.9) Plan Of Treatment Next Appt Details Provider Name:Harmony Griffin er, 07/24/2025 10:00:00 AM, 1210 [facility] 36 [facility], [address], [place], [place], [phone], Medications Administered Medication Instructions Date of Administration Dosage Notes allergy 02/09/2025 0.35 mL Dog Mix: RT Ar m allergy 02/09/2025 0.35 mL Cat Mix: LT Ar m Progress Notes * SOFIA OWENSDOB: [birth year] (79 yo F)Acc No.[id number]:02/09/2025 Patient: SOFIA RUDOLPH Provider: Harmony Orr M.D. :1945 A ge:79 Y S ex:Female Date:02/09/2025 Address:[address] [place] [address] , [place], [id number] Subjective: * Chief Complaints: * 1 . ALLERGY SHOTS. * Medical History: * Medications: T aking Azelastine HCl 137 [...] 1 tablet in the morning Orally , Discontinued Medrol 4 MG Tablet Therapy Pack as directed Orally , Medication List reviewed and reconciled with the patient Objective: * Vitals: Assessment: * Assessment: 1. A llergic rhinitis, unspecified seasonality, unspecified trigger - J30.9 (Primary) ? Plan: * Treatment: * Therapeutic Injections: allergy : 0.35 mL (Route: Subcutaneous) given by aPge Olguin on subcutaneus (Allergic rhinitis, unspecified seasonality, unspecified trigger) allergy : 0.35 mL (Route: Subcutaneous) given by Page Olguin on subcutaneus (Allergic rhinitis, unspecified seasonality, unspecified trigger) * Procedure Codes: 9 5117 IMMUNOTHERAPY INJECTIONS * Images: Billing Information: * Visit Code: * Procedure Codes: 55758 IMMUNOTHERAPY INJECTIONS. * Electronic signature of Harmony Orr MD on 03/24/2025 at 10:05 AM EST Sign off status: Pending * Provider: Harmony Orr M.D. Date: 0 02/09/2025 Generated for Ann-Marie zepeda/Bree/Katiesmitting on: 05/24/2024 10:05 AM EST
--- OUTSIDE RECORDS SUMMARY | 2025-02-13 10:20 | XMS_ITS ---
Author Organization [facility] Address [address] [place] [facility] 36 [facility] [address] [place] [phone] Care Team Providers Care Homicide Squad Lieutenant Name Role Phone Harmony Orr Primary Care Provider Medications Medication SIG (Take, Route, Frequency, Duration) Notes Start Date End Date Status Triamterene-HCTZ 37.5-25 MG 1 tablet in the morning Orally; Duration: 90 days Active Pantoprazole Sodium 40 MG Take 1 tablet by mouth once daily for 90 days; Duration: 90 Active Trelegy Ellipta 100-62.5-25 MCG/ACT Inhale 1 puff by mouth once daily; Duration: 30 Active amLODIPine Besylate 5 MG Take 1 tablet b y mouth once daily; Duration: 90 days Active Potassium Chloride ER 20 MEQ 1 tablet with food Orally once a day; Duration: 30 days Active Azelastine HCl 137 MCG/SPRAY 2 puffs (1 spray in each nostril) Nasally Twice a day Active Flonase Allergy Relief 50 MCG/ACT 1 spray in each nostril Nasally Twice a day Active Multivitamin - 1 tablet Orally Once a day; Duration: 30 day(s) Active Calcium + Vitamin D3 600-5 MG-MCG 1 tab(s) orally TID Active Albuterol Sulfate HFA 108 (90 Base) MCG/ACT INHALE 2 PUFFS BY MOUTH 4 TIMES DAILY NEEDED; Duration: 25 Active Encounters Encounter Location Date Provider Diagnosis [facility] [address] [facility] 36 [facility] [address] [place] [id number] 02/13/2025 Harmony Orr Allergic rhinitis, unspecified seasonality, unspecified trigger J30.9 Assessments Encounter Date Diagnosis (ICD Code) Assessment Notes Treatment Notes Treatment Clinical Notes Section Notes 02/13/2025 Allergic rhinitis, unspecified seasonality, unspecified trigger (ICD-10 - J30.9) Plan Of Treatment Next Appt Details Provider Name:Harmony Griffin er, 07/24/2025 10:00:00 AM, 1210 [facility] [address], [address], [place], [place], [phone], Medications Administered Medication Instructions Date of Administration Dosage Notes allergy 02/13/2025 0.35 mL dog mix: RA allergy 02/13/2025 0.35 mL cat mix: LA Progress Notes * SOFIA OWENSDOB: [birth year] (79 yo F)Acc No.[id number]:02/13/2025 Patient: SOFIA RUDOLPH Provider: Harmony Orr M.D. :1945 A ge:79 Y S ex:Female Date:02/13/2025 Address:[address] [place] [address] , [facility] [facility], [id number] Subjective: * Chief Complaints: * * Medical History: H yperlipidemia, Hypertension, Cervical stenosis, Menopause, Covid vaccine x2 Pfizer Jun 2020. * Medications: T aking Azelastine HCl 137 [...] tablet by mouth once daily , Taking Potassium Chloride ER 20 MEQ Tablet Extended Release 1 tablet with food Orally once a day , Taking Triamterene-HCTZ 37.5-25 MG Tablet 1 tablet in the morning Orally , Taking Pantoprazole Sodium 40 MG Tablet Delayed Release Take 1 tablet by mouth once daily for 90 days , Medication List reviewed and reconciled with the patient Objective: * Vitals: Assessment: * Assessment: 1. A llergic rhinitis, unspecified seasonality, unspecified trigger - J30.9 (Primary) ? Plan: * Treatment: * Therapeutic Injections: allergy : 0.35 mL (Route: Subcutaneous) given by Kimberlee Argueta EPE on right deltoid (Allergic rhinitis, unspecified seasonality, unspecified trigger) allergy : 0.35 mL (Route: Subcutaneous) given by Kimberlee Argueta , EPE on left deltoid (Allergic rhinitis, unspecified seasonality, unspecified trigger) * Procedure Codes: 9 5117 IMMUNOTHERAPY INJECTIONS * Images: Billing Information: * Visit Code: * Procedure Codes: 64612 IMMUNOTHERAPY INJECTIONS. * Electronic signature of Harmony Orr MD on 03/24/2025 at 10:04 AM EST Sign off status: Pending * Provider: Harmony Orr M.D. Date: Generated for Ann-Marie zepeda/Bree/Katiesmitting on: 05/24/2024 10:04 AM EST
--- OUTSIDE RECORDS SUMMARY | 2025-02-23 08:30 | XMS_ITS ---
Author Organization [facility] Address [address] [place] [id number] Care Team Providers Care Production Control Specialist Name Role Phone Harmony Orr Primary Care Provider [phone] REASON FOR VISIT allergy injection Encounters Encounter Location Date Provider Diagnosis [facility] 1210 [facility] 36 [facility] [address] [place] [id number] 02/23/2025 Harmony rOr Allergic rhinitis, unspecified seasonality, unspecified trigger J30.9 Assessments Encounter Date Diagnosis (ICD Code) Assessment Notes Treatment Notes Treatment Clinical Notes Section Notes 02/23/2025 Allergic rhinitis, unspecified seasonality, unspecified trigger (ICD-10 - J30.9) Plan Of Treatment Next Appt Details Provider Name:Harmony Griffin er, 07/24/2025 10:00:00 AM, 1210 [facility] 36 [facility], [address], [place], [id number], Medications Administered Medication Instructions Date of Administration Dosage Notes allergy 02/23/2025 0.35 mL allergy 02/23/2025 0.35 mL Progress Notes * SOFIA OWENSDOB: [birth year] (79 yo F)Acc No.[id number]:02/23/2025 Patient: SOFIA RUDOLPH Provider: Harmony Orr M.D. :1945 A ge:79 Y S ex:Female Date:02/23/2025 [facility]:[address] [facility] [address], [place], [id number] Subjective: * Chief Complaints: * 1 . [...] Information: * Visit Code: * Procedure Codes: 94599 IMMUNOTHERAPY INJECTIONS. * Electronic signature of Harmony Orr MD on 03/24/2025 at 10:04 AM EST Sign off status: Pending * Provider: Harmony Orr M.D. Date: Generated for Ann-Marie zepeda/Bree/Valerieitting on: 05/24/2024 10:04 AM EST
--- OUTSIDE RECORDS SUMMARY | 2025-02-25 10:45 | XMS_ITS ---
Author Organization [facility] Address 1210 [facility] 36 [facility] [address] [place] [phone] Care Team Providers Care Tar Distillation Supervisor Name Role Phone Harmony Orr Primary Care Provider REASON FOR VISIT ALLERGY SHOT Medications Medication [...] Encounter Location Date Provider Diagnosis [facility] 1210 [facility] 36 [facility] [address] [place] [id number] 02/25/2025 Harmony Orr Allergic rhinitis, unspecified seasonality, unspecified trigger J30.9 Assessments Encounter Date Diagnosis (ICD Code) Assessment Notes Treatment Notes Treatment Clinical Notes Section Notes 02/25/2025 Allergic rhinitis, unspecified seasonality, unspecified trigger (ICD-10 - J30.9) Plan Of Treatment Next Appt Details Provider Name:Harmony Griffin er, 07/24/2025 10:00:00 AM, [facility] 36 [facility], [address], [place], [place], [id number], Medications Administered Medication Instructions Date of Administration Dosage Notes allergy 02/25/2025 0.35 mL Mix Dog Left A rm allergy 02/25/2025 0.35 Mix Cat Right Arm Progress Notes * SOFIA OWENSDOB: [birth year] (79 yo F)Acc No.[id number]:02/25/2025 Patient: SOFIA RUDOLPH Provider: Harmony Orr M.D. :1945 A ge:79 Y S ex:Female Date:02/25/2025 Address:[address] [place] [address] 36 , [facility] Subjective: * Chief Complaints: * 1 . [...] Information: * Visit Code: * Procedure Codes: 31490 IMMUNOTHERAPY INJECTIONS. * Electronic signature of Harmony Orr MD on 03/24/2025 at 10:05 AM EST Sign off status: Pending * Provider: Harmony Orr M.D. Date: Generated for Ann-Marie zepeda/Bree/Alex on: 05/24/2024 10:05 AM EST
--- OUTSIDE RECORDS SUMMARY | 2025-03-02 09:00 | XMS_ITS ---
Author Organization [facility] Address 1210 [place] [facility] 36 [facility] [address] [place] [id number] Care Team Providers Care Motorcyles Final Inspector Name Role Phone Harmony Orr Primary Care Provider [phone] REASON FOR VISIT allergy shot Medications Medication [...] the morning Orally; Duration: 90 days Active Trelegy Ellipta 100-62.5-25 MCG/ACT Inhale 1 puff by mouth once daily; Duration: 30 Active amLODIPine Besylate 5 MG Take 1 tablet b y mouth once daily; Duration: 90 days Active Multivitamin - 1 tablet Orally Once a day; Duration: 30 day(s) Active Calcium + Vitamin D3 600-5 MG-MCG 1 tab(s) orally TID Active Azelastine HCl 137 MCG/SPRAY 2 puffs (1 spray in each nostril) Nasally Twice a day Active Flonase Allergy Relief 50 MCG/ACT 1 spray in each nostril Nasally Twice a day Active Albuterol Sulfate HFA 108 (90 Base) MCG/ACT INHALE 2 PUFFS BY MOUTH 4 TIMES DAILY NEEDED; Duration: 25 Active Encounters Encounter Location Date Provider Diagnosis [place] [address] [place] [address] [facility] [address] [place] [id number] 03/02/2025 Harmony Orr Allergic rhinitis, unspecified seasonality, unspecified trigger J30.9 Assessments Encounter Date Diagnosis (ICD Code) Assessment Notes Treatment Notes Treatment Clinical Notes Section Notes 03/02/2025 Allergic rhinitis, unspecified seasonality, unspecified trigger (ICD-10 - J30.9) Plan Of Treatment Next Appt Details Provider Name:Harmony Griffin er, 07/24/2025 10:00:00 AM, 1210 [facility] 36 [facility], [address] , [place], [place], [phone], Medications Administered Medication Instructions Date of Administration Dosage Notes allergy 03/02/2025 0.35 mL dog: right arm allergy 03/02/2025 0.35 mL cat: left arm Progress Notes * SOFIA OWENSDOB: [birth year] (79 yo F)Acc No.[id number]:03/02/2025 Patient: SOFIA RUDOLPH Provider: Harmony Orr M.D. :1945 A ge:79 Y S ex:Female Date:03/02/2025 Address:[address] [place] [address] 36 , [id number] Subjective: * Chief Complaints: * 1 [...] given by Kimberlee Argueta , EPE on subcutaneus (Allergic rhinitis, unspecified seasonality, unspecified trigger) allergy : 0.35 mL (Route: Subcutaneous) given by Kimberlee Argueta , EPE on subcutaneus (Allergic rhinitis, unspecified seasonality, unspecified trigger) * Procedure Codes: 9 5117 IMMUNOTHERAPY INJECTIONS * Images: Billing Information: * Visit Code: * Procedure Codes: 69448 IMMUNOTHERAPY INJECTIONS. * Electronic signature of Harmony Orr MD on 03/24/2025 at 10:05 AM EST Sign off status: Pending * Provider: Harmony Orr M.D. Date: Generated for Ann-Marie zepeda/Bree/Katiesmitting on: 05/24/2024 10:05 AM EST
--- OUTSIDE RECORDS SUMMARY | 2025-03-04 10:45 | XMS_ITS ---
Author Organization [facility] Address 1210 [facility] 36 [facility] [address] [place] [phone] Care Team Providers Care Prescription Clerk Name Role Phone Harmony Orr Primary Care Provider [phone] REASON FOR VISIT allergy shot Medications Medication SIG (Take, Route, Frequency, Duration) Notes Start Date End Date Status Azelastine HCl 137 MCG/SPRAY 2 puffs (1 spray in each nostril) Nasally Twice a day Active Pantoprazole Sodium 40 MG Take 1 [...] mouth once daily; Duration: 90 days Active Flonase Allergy Relief 50 MCG/ACT 1 spray in each nostril Nasally Twice a day Active Trelegy Ellipta 100-62.5-25 MCG/ACT Inhale 1 puff by mouth once daily; Duration: 30 Active Albuterol Sulfate HFA 108 (90 Base) MCG/ACT INHALE 2 PUFFS BY MOUTH 4 TIMES DAILY NEEDED; Duration: 25 Active Calcium + Vitamin D3 600-5 MG-MCG 1 tab(s) orally TID Active Multivitamin - 1 tablet Orally Once a day; Duration: 30 day(s) Active Encounters Encounter Location Date Provider Diagnosis [place] [address] [place] [address] [facility] [address] [place] [phone] 03/04/2025 Harmony Orr Allergic rhinitis, unspecified seasonality, unspecified trigger J30.9 Assessments Encounter Date Diagnosis (ICD Code) Assessment Notes Treatment Notes Treatment Clinical Notes Section Notes 03/04/2025 Allergic rhinitis, unspecified seasonality, unspecified trigger (ICD-10 - J30.9) Plan Of Treatment Next Appt Details Provider Name:Harmony Griffin er, 07/24/2025 10:00:00 AM, 1210 [facility] 36 [facility], [address], [place], [place], [phone], Medications Administered Medication Instructions Date of Administration Dosage Notes allergy 03/04/2025 0.35 mL mix dog: LA allergy 03/04/2025 0.35 mL mix cat: RA Progress Notes * SOFIA OWENSDOB: [birth year] (79 yo F)Acc No.[id number]:03/04/2025 Patient: SOFIA RUDOLPH Provider: Harmony Orr M.D. :1945 A ge:79 Y S ex:Female Date:03/04/2025 Address:[address] [place] [address] 36 , [id number] Subjective: * Chief Complaints: * [...] given by Kimberlee Argueta , EPE on right deltoid (Allergic rhinitis, unspecified seasonality, unspecified trigger) * Procedure Codes: 9 5117 IMMUNOTHERAPY INJECTIONS * Images: Billing Information: * Visit Code: * Procedure Codes: 55146 IMMUNOTHERAPY INJECTIONS. * Electronic signature of Harmony Orr MD on 03/24/2025 at 10:05 AM EST Sign off status: Pending * Provider: Harmony Orr M.D. Date: Generated for Ann-Marie zepeda/Bree/Valerieitting on: 05/24/2024 10:05 AM EST
--- OUTSIDE RECORDS SUMMARY | 2025-03-12 06:30 | XMS_ITS ---
Author Organization [facility] Address [address] [facility] 36 [facility] [address] [place] [id number] Care Team Providers Care Wood Boat Builder Supervisor Name Role Phone Harmony Orr Primary Care Provider REASON FOR VISIT allergy shot Medications Medication SIG (Take, Route, Frequency, Duration) Notes Start Date End Date Status Triamterene-HCTZ 37.5-25 MG 1 tablet in the morning Orally; Duration: 90 days Active Flonase Allergy Relief 50 MCG/ACT 1 spray in each nostril Nasally Twice a day Active Azelastine HCl 137 MCG/SPRAY 2 puffs (1 spray in each nostril) Nasally Twice a day Active Pantoprazole Sodium 40 MG Take 1 tablet by mouth once daily for 90 days; Duration: 90 Active Multivitamin - 1 tablet Orally Once a day; Duration: 30 day(s) Active Potassium Chloride ER 20 MEQ 1 [...] 600-5 MG-MCG 1 tab(s) orally TID Active Encounters Encounter Location Date Provider Diagnosis [place] [address] [facility] [address] [place] [id number] 03/12/2025 Harmony Orr Allergic rhinitis, unspecified seasonality, unspecified trigger J30.9 Assessments Encounter Date Diagnosis (ICD Code) Assessment Notes Treatment Notes Treatment Clinical Notes Section Notes 03/12/2025 Allergic rhinitis, unspecified seasonality, unspecified trigger (ICD-10 - J30.9) Plan Of Treatment Next Appt Details Provider Name:Harmony Maganabrian er, 07/24/2025 10:00:00 AM, [facility] [facility], [address], [place], [place], [id number], Medications Administered Medication Instructions Date of Administration Dosage Notes allergy 03/12/2025 0.35 mL Cat Mix Left A rm allergy 03/12/2025 0.35 mL Dog mix Right Arm Progress Notes * SOFIA OWENSDOB: [birth year] (79 yo F)Acc No.[id number]:03/12/2025 Patient: SOFIA RUDOLPH Provider: Harmony Orr M.D. :1945 A ge:79 Y S ex:Female Date:03/12/2025 Address:[address] [place] [address] [address] , [id number] [...] : 0.35 mL (Route: Subcutaneous) given by Setelita Cueva on left deltoid (Allergic rhinitis, unspecified seasonality, unspecified trigger) allergy : 0.35 mL (Route: Subcutaneous) given by Estelita Uceva on right deltoid (Allergic rhinitis, unspecified seasonality, unspecified trigger) * Procedure Codes: 9 5115 IMMUNOTHERAPY, ONE INJECTION * Images: Billing Information: * Visit Code: * Procedure Codes: 19188 IMMUNOTHERAPY, ONE INJECTION. * Electronic signature of Harmony Orr MD on 03/24/2025 at 10:04 AM EST Sign off status: Pending * Provider: Harmony Orr M.D. Date: Generated for Ann-Marie zepeda/Bree/Valerieitting on: 05/24/2024 10:04 AM EST
--- OUTSIDE RECORDS SUMMARY | 2025-03-16 06:00 | XMS_ITS ---
Author Organization [facility] Address [address] [place] [id number] Care Team Providers Care Dental Scheduler Name Role Phone Harmony Orr Primary Care Provider [phone] Allergies No Known Allergies Results Component Value Reference Range Notes CBC Fingerstick (in house) Reviewed date:03/18/2025 10:22:21 AM Interpretation: Performing Lab: Notes/Report: wbc 17.4 3.5 - 10 lym 22.0 15 - 50 mid 5.4 2 - 15 gran 72.6 35 - 80 rbc 4.94 3.5 - 5.5 hgb 15.1 11.5 - 16.5 hct 44.9 35 - 55 mcv 90.8 75 - 100 mch 30.6 25 - 35 mchc 33.7 31 - 38 plat 217 100 - 400 CXR Reviewed date:03/19/2025 04:45:28 PM Interpretation:Negative Performing Lab: Notes/Report: Negative REASON FOR VISIT 4 months, Needs labs & mammogram Medications Medication SIG (Take, Route, Frequency, Duration) Notes Start Date End Date Status Flonase Allergy Relief 50 MCG/ACT 1 spray in each nostril Nasally Twice a day Active Calcium + Vitamin D3 600-5 MG-MCG 1 tab(s) orally TID Active Multivitamin - 1 tablet Orally Once a day; Duration: 30 day(s) Active Trelegy Ellipta 100-62.5-25 MCG/ACT Inhale 1 puff by mouth once daily; Duration: 30 Active Albuterol Sulfate HFA 108 (9 0 Base) MCG/ACT INHALE 2 PUFFS BY MOUTH 4 TIMES DAILY NEEDED; Duration: 25 Active methylPREDNISolone 4 MG as directed Orally Active Azelastine HCl 137 MCG/SPRAY 2 puffs (1 spray in each nostril) Nasally Twice a day Active Pantoprazole Sodium 40 MG Take 1 tablet by mouth once daily for 90 days; Duration: 90 Active levoFLOXacin 750 MG 1 tablet Orally Once a day; Duration: 5 days 03/16/2025 Active Triamterene-HCTZ 37.5-25 MG 1 tablet in the morning Orally; Duration: 90 days Active Potassium Chloride ER 20 MEQ 1 tablet wi th food Orally once a day; Duration: 30 days Active amLODIPine Besylate 5 MG Take 1 tablet b y mouth once daily; Duration: 90 days Active Vital Signs Blood pressure systolic 128 mm Hg 03/16/20 Blood pressure diastolic 60 mm Hg Heart Rate 71 /min 03/16/2025 Height 63.25 in 03/16/2025 Weight 178.6 lbs 03/16/2025 BMI 31.38 kg/m2 03/16/2025 Encounters Encounter Location Date Provider Diagnosis [facility] [address], [place] [id number] 03/16/2025 Harmony Orr Bronchiectasis with acute lower respiratory infection J47.0 ; Interstitial lung disease J84.9 and Seasonal allergic rhinitis due to other allergic trigger J30.89 Assessments Encounter Date Diagnosis (ICD Code) Assessment Notes Treatment Notes Treatment Clinical Notes Section Notes 03/16/2025 Bronchiectasis with acute lower respiratory infection (ICD-10 - J47.0) MEDROL DOSEPACK VERBAL ORDERED 03/16/2025 Interstitial lung disease (ICD-10 - J84.9) 03/16/2025 Seasonal allergic rhinitis due to other allergic trigger (ICD-10 - J30.89) Plan Of Treatment Medication Medication Name Sig Start Date Stop Date Notes methylPREDNISolone 4 MG as directed Orally 03/16/2025 levoFLOXacin 750 MG 1 tablet Orally Once a day; Duration: 5 days 03/16/2025 Treatment Notes Assessment Notes Bronchiectasis with acute lower respirat ory infection MEDROL DOSEPACK VERBAL ORDERED Next Appt Details Follow Up: 1 Week, Reason: Provider Name:Harmony Griffin er, 07/24/2025 10:00:00 AM, [address] [facility], [address], [place], [id number], Medications Administered Medication Instructions Date of Administration Dosage Notes allergy 03/16/2025 0.35 mL allergy 03/16/2025 0.35 mL Progress Notes * SOFIA OWENSDOB: [birth year] (79 yo F)Acc No.[id number]:03/16/2025 Progress Notes Patient: SOFIA RUDOLPH Provider: Harmony Orr M.D. :1945 A ge:79 Y S ex:Female Date:03/16/2025 Address:[address] [place] [address] [address], [place] [id number] Subjective: * Chief Complaints: * 1 . 4 months. 2. Needs labs & mammogram. * HPI: C ardiology: 79 year old female presents with c/o Blood Pressure Elevated?Pt sts she is , doing well on medications. Pt does sts she is no longer her potassium medication.? c/o Hyperlipidemia P t is not fasting today. E NT/respiratory: c/o cough. * ROS: C ONSTITUTIONAL: Positive for A [facility] physician seen since last visit?,YES?Change in medication since last visit?, YES A re you taking antibiotics?, NO A re you taking steroids? NO. D ERMATOLOGY: no R yvan. n o [...] List reviewed and reconciled with the patient * Allergies: N .K.D.A. Objective: * Vitals: W t: 178.6, Temp: 98.4, BP: 128/60, HR: 71, Nurse: , Ht: 63.25, BMI:31.38. * Examination: G eneral Examination: General Appearance: N AD. H EENT: u nremarkable.?Oral cavity: n o lesions, mucosa moist and WNL, no erythema. N astrid: s upple, no lymphadenopathy. C hest: n ormal shape and expansion. H eart: s inus tachycardia. L ungs: d ecreased breath sounds, bilateral rhonchi. A bdomen: soft and nontender. N eurologic Exam: I ntact, gait normal. S kin: n ormal, no rash. P eripheral pulses:?normal . B ack: mild dorsal kyphosis. E xtremities: n o leg edema. Assessment: * Assessment: 1. B ronchiectasis with acute lower respiratory infection - J47.0 (Primary) 2 .?Interstitial lung disease - J84.9 3 . S easonal allergic rhinitis due to other allergic trigger - J30.89 Plan: * Treatment: Value Reference Range w bc 17.4 3.5 - 10 * l ym 22.0 15 - 50 * m id 5.4 2 - 15 * g ran 72.6 35 - 80 * r bc 4.94 3.5 - 5.5 * h gb 15.1 11.5 - 16.5 * h ct 44.9 35 - 55 * m cv 90.8 75 - 100 * m ch 30.6 25 - 35 * m chc 33.7 31 - 38 * p lat 217 100 - 400 * Maxine Espinoza 03/16/2025 12:2 7:05 PM EST > Provider reviewed results while patient in office. ?Imaging: CXR (Performed Date - 03/16/2025)?Negative* Tawnya Aguilar 03/18/2025 10: 22:01 AM EST > pneumonia has resolvedTawnya Aguilar 03/19/2025 04:43:34 PM EST > pt informed Notes: MEDROL DOSEPACK VERBAL ORDERED?? * Therapeutic Injections: allergy : 0.35 mL (Route: Subcutaneous) given by DEDRICK Lynn on subcutaneus (Seasonal allergic rhinitis due to other allergic trigger) allergy : 0.35 mL (Route: Subcutaneous) given by DEDRICK Lynn on subcutaneus (Seasonal allergic rhinitis due to other allergic trigger) * Procedure Codes: 3 6416 CAPILLARY BLOOD DRAW, 26273 CBC WITH AUTO DIFF, 19029 IMMUNOTHERAPY, ONE INJECTION * Follow Up: 1 Week * Images: Billing Information: * Visit Code: 75660 Office Visit, Est Pt., Level 3. * Procedure Codes: 53923 CAPILLARY BLOOD DRAW. 78747 CBC WITH AUTO DIFF. 38036 IMMUNOTHERAPY, ONE INJECTION. * Electronic signature of Harmony Orr MD on 03/24/2025 at 10:05 AM EST Sign off status: Pending * Provider: Harmony Orr M.D. Date: 05/16/2024 Generated for Ann-Marie zepeda/Bree/Katiesmitting on: 05/24/2024 10:05 AM EST History and Physical Notes * HPI (History of Present Illness) Category Sub-Category Detail Notes Category Not es ENT/respiratory cough Cardiology Blood Pressure Elevated Pt sts s he is , doing well on medications. Pt does sts she is no longer her potassium medication Hyperlipidemia Pt is not fasting to day Examination Category Sub-Category Detail Notes Category Not es General Examination HEENT: unremarkable Heart: sinus tachycardia Lungs: decreased breath karolina nds, bilateral rhonchi Abdomen: soft and nontender Extremities: no leg edema General Appearance: NAD Skin: normal, no rash Neurologic Exam: Intact, gait normal Neck: supple, no lymphaden opathy Oral cavity: no lesions, mucosa m oist and WNL, no erythema Peripheral pulses: normal Back: mild dorsal kyphosis Chest: normal shape and exp ansion
--- OUTSIDE RECORDS SUMMARY | 2025-03-23 04:30 | XMS_ITS ---
Author Organization [facility] Address [address] [place] [id number] Care Team Providers Care Reed Press Feeder Name Role Phone Harmony Orr Primary Care Provider Allergies No Known Allergies Results Component Value Reference Range Notes P-Comprehensive Metabolic Pa willam (CMP) (Not yet reviewed by provider) Interpretation:Normal Performing Lab: Notes/Report: Test performed by [facility] [address] [place] [address] , [address], [place] [address] Robert Mohamud MD, Material Requisitioner CLIA: [id number] Sodium 137 135-145 mmol/L Potassium 3.9 3.5-5.3 mmol/L Chloride 102 97-108 mmol/L CO2 26 20-32 mmol/L Glucose 85 65-99 mg/dL BUN 18 8-23 mg/dL Creatinine 0.81 0.50-1.00 mg/dL Calcium 9.6 8.6-10.4 mg/dL eGFR by Creatinine 74 >59 mL/min/1.73m2 Protein 6.3 6.0-8.3 g/dL Albumin 4.2 3.5-5.3 g/dL Alkaline Phosphatase 107 35-121 IU/L ALT (SGPT) 11 <5-47 IU/L AST (SGOT) 15 <5-40 IU/L Bilirubin, Total 0.5 <0.2-1.2 mg/dL A/G Ratio 2.0 1.1-2.5 CBC Venipuncture (in house) Reviewed date:03/23/2025 01:22:30 PM Interpretation: Performing Lab: Notes/Report: wbc 11.0 3.5 - 10 lymph 32.2% 15 - 50 mid 6.9% 2 - 15 gran 60.9% 35 - 80 rbc 4.72 3.5 - 5.5 hgb 14.4 11.5 - 16.5 hct 43.1 35 - 55 mcv 91.4 75 - 100 mch 30.5 25 - 35 mchc 33.3 31 - 38 platlet 366 100 - 400 REASON FOR VISIT 1 week f/u and allergy shots Medications Medication SIG (Take, Route, Frequency, Duration) Notes Start Date End Date Status Pantoprazole Sodium 40 MG Take 1 tablet by mouth once daily for 90 days; Duration: 90 Active Triamterene-HCTZ 37.5-25 MG 1 tablet in the morning Orally; Duration: 90 days Active Potassium Chloride ER 20 MEQ 1 tablet with food Orally once a day; Duration: 30 days Not-Taking amLODIPine Besylate 5 MG Take 1 tablet [...] each nostril) Nasally Twice a day Active Vital Signs Blood pressure systolic 162 mm Hg 03/23/20 25 Blood pressure diastolic 72 mm Hg 025 Heart Rate 77 /min 03/23/2025 Height 63.25 in 03/23/2025 Weight 178.0 lbs 03/23/2025 BMI 31.28 kg/m2 03/23/2025 Encounters Encounter Location Date Provider Diagnosis [facility] [address] [facility] [address] [place], [place] [id number] 03/23/2025 Harmony Orr Acquired bronchiecta sis J47.9 ; Essential hypertension I10 ; Non-seasonal allergic rhinitis due to other allergic trigger J30.89 and Allergic rhinitis, unspecified seasonality, unspecified trigger J30.9 Assessments Encounter Date Diagnosis (ICD Code) Assessment Notes Treatment Notes Treatment Clinical Notes Section Notes 03/23/2025 Acquired bronchiectasis (ICD-10 - J47.9) 03/23/2025 Essential hypertension (ICD-10 - I10) 03/23/2025 Non-seasonal allergic rhinitis due to other allergic trigger (ICD-10 - J30.89) 03/23/2025 Allergic rhinitis, unspecified seasonality, unspecified trigger (ICD-10 - J30.9) Plan Of Treatment Pending Test Test Name Order Date P-Comprehensive Metabolic Panel (CMP) Next Appt Details Follow Up: 4 Months, Reason: Provider Name:Harmony Griffin er, 07/24/2025 10:00:00 AM, [address] [facility] [address] [facility], [address], [place], [place], [id number], Medications Administered Medication Instructions Date of Administration Dosage Notes allergy 03/23/2025 0.35 mL mix dog- RA allergy 03/23/2025 0.35 mL mix cat- LA Progress Notes * SOFIA OWENSDOB: [birth year] (79 yo F)Acc No.[id number]:03/23/2025 Progress Notes Patient: SOFIA RUDOLPH Provider: Harmony Orr M.D. :1945 A ge:79 Y S ex:Female Date:03/23/2025 Address:[address] [place] [address] [address] , [id number] Subjective: * Chief Complaints: * 1 . 1 week f/u and allergy shots. * HPI: E NT/respiratory: The pt is here for a 1 week follow up on Bronchitis. Pt states. 79 year old female presents with c/o cough yellow sputum production. Denies : sore throat. D enies : Fever. D enies : Chest Pain. D enies : Short of Breath. * ROS: C ONSTITUTIONAL: Positive for A nother physician seen since last visit? No, Change in medication since last visit? Yes, Are you taking antibiotics?No, Are you taking steroids? No. D ERMATOLOGY: no R yvan. n o [...] 07/03/2005, Cholecystitis, cholelithiasis 12/2008, Cholecystectomy 12/2009, Appendectomy 02/2011, Injection of trigger thumb right 02/2025. * Hospitalization/Major Diagno stic Procedure: H [facility]-bloody [...] tablet by mouth once daily , Taking Triamterene-HCTZ 37.5-25 MG Tablet 1 tablet in the morning Orally , Taking Pantoprazole Sodium 40 MG Tablet Delayed Release Take 1 tablet by mouth once daily for 90 days , Not-Taking Potassium Chloride ER 20 MEQ Tablet Extended Release 1 tablet with food Orally once a day , Discontinued levoFLOXacin 750 MG Tablet 1 tablet Orally Once a day , Discontinued methylPREDNISolone 4 MG Tablet Therapy Pack as directed Orally , Medication List reviewed and reconciled with the patient * Allergies: N .K.D.A. Objective: * Vitals: W t: 178.0, Temp: 98.0, BP: 162/72, HR: 77, Nurse: ANIL, Ht: 63.25, Repeat BP: 150/70, BMI:31.28. * Examination: G eneral Examination: General Appearance: N AD. H EENT: u nremarkable.?Oral cavity: n o lesions, mucosa moist and WNL, no erythema. N astrid: s upple, no lymphadenopathy. C hest: n ormal shape and expansion. H eart: s inus tachycardia. L ungs: d ecreased breath sounds, no wheezes or rhonchi. A bdomen: soft and nontender.?Neurologic Exam: I ntact, gait normal. S kin: n ormal, no rash. P eripheral pulses: n ormal . B ack: mild dorsal kyphosis. E xtremities: n o leg edema. ? Assessment: * Assessment: 1. A cquired bronchiectasis - J47.9 (Primary) 2 . E ssential hypertension - I10 3 . N on-seasonal allergic rhinitis due to other allergic trigger - J30.89? 4. A llergic rhinitis, unspecified seasonality, unspecified trigger - J30.9? Plan: * Treatment: Value Reference Range w bc 11.0 3.5 - 10 * l ymph 32.2% 15 - 50 * m id 6.9% 2 - 15 * g ran 60.9% 35 - 80 * r bc 4.72 3.5 - 5.5 * h gb 14.4 11.5 - 16.5 * h ct 43.1 35 - 55 * m cv 91.4 75 - 100 * m ch 30.5 25 - 35 * m chc 33.3 31 - 38 * p latlet 366 100 - 400 * Ilana Campuzano 03/23/2025 0 9:55:43 AM EST > Provider reviewed results while patient in office.Jennifer Montiel 03/23/2025 01:22:30 PM EST > 2.?Essential hypertension?LAB: P-Comprehensive Metabolic Panel (CMP) (Collection Date & Time - 03/23/2025 09:22 AM)?Normal* Value Reference Range A /G Ratio 2.0 1.1-2.5 - * A lbumin 4.2 3.5-5.3 - g/dL * A lkaline Phosphatase 107 35-121 - IU/L * A LT (SGPT) 11 <5-47 - IU/L * A ST (SGOT) 15 <5-40 - IU/L * B ilirubin, Total 0.5 <0.2-1.2 - mg/dL * B UN 18 8-23 - mg/dL * C alcium 9.6 8.6-10.4 - mg/dL * C hloride 102 97-108 - mmol/L * C O2 26 20-32 - mmol/L * C reatinine 0.81 0.50-1.00 - mg/dL * G lucose 85 65-99 - mg/dL * P otassium 3.9 3.5-5.3 - mmol/L * S odium 137 135-145 - mmol/L * P rotein 6.3 6.0-8.3 - g/dL * e GFR by Creatinine 74 >59 - mL/min/1.73m2 * Therapeutic Injections: allergy : 0.35 mL (Route: Subcutaneous) given by Kimberleejonathan Tabore , EPE on subcutaneus (Allergic rhinitis, unspecified seasonality, unspecified trigger) allergy : 0.35 mL (Route: Subcutaneous) given by Kimberlee Tabore , EPE on subcutaneus (Allergic rhinitis, unspecified seasonality, unspecified trigger) * Procedure Codes: 8 5025 CBC WITH AUTO DIFF, 89109 VENIPUNCT, ROUTINE*, 72809 IMMUNOTHERAPY, ONE INJECTION * Follow Up: 4 Months * Images: Billing Information: * Visit Code: 24174 Office Visit, Est Pt., Level 3. * Procedure Codes: 68495 CBC WITH AUTO DIFF. 19046 VENIPUNCT, ROUTINE*. 52881 IMMUNOTHERAPY, ONE INJECTION. * Electronic signature of Harmony Orr MD on 03/24/2025 at 10:04 AM EST Sign off status: Pending * Provider: Harmony Orr M.D. Date: 05/23/2024 Generated for Ann-Marie zepeda/Bree/Katiesmitting on: 05/24/2024 10:04 AM EST History and Physical Notes * HPI (History of Present Illness) Category Sub-Category Detail Notes Category Not es ENT/respiratory sore throat Short of Breath Chest Pain cough yellow sputum produc tion Fever Examination Category Sub-Category Detail Notes Category Not es General Examination HEENT: unremarkable Heart: sinus tachycardia Lungs: decreased breath karolina nds, no wheezes or rhonchi Abdomen: soft and nontender Extremities: no leg edema General Appearance: NAD Skin: normal, no rash Neurologic Exam: Intact, gait normal Neck: supple, no lymphaden opathy Oral cavity: no lesions, mucosa m oist and WNL, no erythema Peripheral pulses: normal Back: mild dorsal kyphosis Chest: normal shape and exp ansion
--- OUTSIDE RECORDS SUMMARY | 2025-03-24 10:05 | XMS_ITS | Clinical Summary ---
Author Organization [facility] Address [address] [place] [address] Care Team Providers Care Manager International Name Role Phone Parviz Orr MD Primary Care Provider [phone] Allergies No known active allergies Medications PREMARIN [...] Immunizations Immunization Administration Dates Next Due COVID-19 (Recensus) Purple Cap Monovalent 07/07/2020,06/15/2020 Fluzone High-Dose 65+YRS [...] & [facility] Care Teams Manager International Relationship Specialty Start Date End Date Parviz Orr MD [address] [place] [address] PCP - General Family Medicine 09/18/19
--- OUTSIDE RECORDS SUMMARY | 2025-03-24 10:06 | XMS_ITS | Patient Health Record ---
Author Organization [facility] Address [address] RON Cunningham [id number] Care Team Providers Care Hose Sprayer Name Role Phone Harmony Orr Primary Care Provider QuiqueJf Unavailable [phone] Dasia Ree Unavailable [phone] Allergies No Known Allergies Results Component Value [...] 04:45:28 PM Interpretation:Negative Performing Lab: Notes/Report: Negative P-Comprehensive Metabolic Pa willam (CMP) (Not yet reviewed by provider) Interpretation:Normal Performing Lab: Notes/Report: Test performed by [facility] [address] [place] [address] , [address], [place] [address] Robert Mohamud MD, Stained Glass Window Designer CLIA: [id number] Sodium 137 135-145 mmol/L Potassium 3.9 3.5-5.3 [...] - 38 platlet 366 100 - 400 H-BMP Reviewed date:06/15/2024 07:41:24 PM Interpretation: Performing [...] employed in healthcare? No Is patient an [facility] employee? N Is patient currently hospitalized? Yes Is patient currently in ICU? No Date of Symptom onset Is patient a resident in a congregate care setting? No ADENOQIA Not Detected NotDetected CORONAHKU1 Not Detected NotDetected LUYNGVPM21 Not Detected NotDetected [id number] Not Detected NotDetected ZWUCMRR19 Not Detected NotDetected METAPNEUMO Not Detected NotDetected RHINOENTER Not Detected NotDetected INFLUAPCR Not Detected NotDetected FLUAH1 Not Detected NotDetected [id number] Not Detected NotDetected INFLUAH3 Not Detected NotDetected [...] on 06/13/24 at 0653 By Cheli Sotelo, SET UP MACHINIST CL 94 98-107 mmol/L CO2 25 22.0-30.0 [...] 102 74-100 mg/dl CA 9.9 8.4-10.2 mg/dl P-Basic Metabolic Panel (BMP ) Reviewed date:07/03/2024 09:53:22 AM Interpretation:Normal Performing Lab: Notes/Report: Test performed by [facility] [address] [place] [address] [address], [address], [place] [address] Robert Mohamud MD, Stained Glass Window Designer CLIA: [id number] Sodium 139 135-145 mmol/L Potassium 4.2 3.5-5.3 [...] Interpretation: Performing Lab: Notes/Report: Test performed by [facility] [address] [place], [place] [address] [address], [address], [place] [address] Robert Mohamud MD, Stained Glass Window Designer CLIA: [id number] Sodium 129 135-145 mmol/L Potassium 3.4 3.5-5.3 [...] AM Interpretation: Performing Lab: Notes/Report: results Neg Influenza Screen (in house) Reviewed date:09/12/2024 08:23:56 [...] - 38 plat 331 100 - 400 P-Comprehensive Metabolic Pa willam (CMP) Reviewed date:11/11/2024 03:40:59 PM Interpretation:Normal Performing Lab: Notes/Report: Test performed by [facility] [address] [place] [address] , [address], [place] [address] Robert Mohamud MD, Stained Glass Window Designer CLIA: [id number] Sodium 138 135-145 mmol/L Potassium 4.1 3.5-5.3 [...] Interpretation:Normal Performing Lab: Notes/Report: Test performed by [facility] [address] [place] [address] , [address], [place] [address] Robert Mohamud MD, Stained Glass Window Designer CLIA: [id number] Erythrocyte Sedimentation Rate (ESR), Automated 29 <31 mm/hr CBC Fingerstick (in house) Reviewed date:09/05/2024 04:50:35 [...] Lab: Notes/Report: CBC Fingerstick (in house) Reviewed date:12/11/2024 12:36:33 [...] - 38 plat 216 100 - 400 Influenza Screen (in house) [...] 10:42:35 AM Interpretation:unremarkable Performing Lab: Notes/Report: unremarkable Medications Medication SIG (Take, Route, Frequency, Duration) Notes Start Date End Date Status amLODIPine Besylate 5 MG Take 1 tablet [...] once a day; Duration: 30 days Not-Taking Immunizations Vaccine Route Administration Date Status Comme [...] W/U Status Risk Notes Problem Essential hypertension (21513716) Essential hypertension (I10) Active confirmed Problem Cough (18230364) Cough (R05) Active confirmed Problem Hearing loss (82753761) Hearing loss (H91.90) Active confirmed Problem Mixed hyperlipidemia (417567793) Mixed hyperlipidemia (E78.2) Active confirmed Problem Hyperlipidemia (99482561) Hyperlipidemia, unspecified (E78.5) Active confirmed Problem Primary insomnia (1237127) Primary insomnia (F51.01) Active confirmed Problem Acute exacerbation of bronchiectasis (210994308) Bronchiectasis with acute lower respiratory infection (J47.0) Active confirmed Problem Angiotensin-convert ing-enzyme inhibitor adverse reaction (911548727) Adverse effect of angiotensin-conver ting-enzyme inhibitors, initial encounter (T46.4X5A) Active confirmed Problem Gastroesophageal reflux disease without esophagitis (368535227) Gastroesophageal reflux disease without esophagitis (K21.9) Active confirmed Problem Headache (33712006) Periodic hea dache syndrome, not intractable (G43.C0) Active confirmed Problem Interstitial lung disease (661442817) Interstitial lung disease (J84.9) Active confirmed Problem Allergic rhinitis (46268059) Seasonal allergic rhinitis due to other allergic trigger (J30.89) Active confirmed Problem Allergic rhinitis (24356312) Non-seasonal allergic rhinitis due to other allergic trigger (J30.89) Active confirmed Problem Exacerbation of moderate persistent asthma (disorder) (142332615) Moderate persistent asthmatic bronchitis with acute exacerbation (J45.41) Active confirmed Problem Uncomplicated moderate persistent asthma (108763931) Moderate persistent asthmatic bronchitis without complication (J45.40) Active confirmed Problem Allergic rhinitis (16491878) Allergic rhinitis, unspecified seasonality, unspecified trigger (J30.9) Active confirmed Problem Plain X-ray of chest abnormal (finding) (4121770275) Abnormal chest x-ray (R93.89) Active confirmed Problem History of colitis (033467776) History of colitis (Z87.19) Active confirmed Problem Pneumonia (296580430) Pneumonia of right upper lobe due to infectious organism (J18.9) Active confirmed Problem Acquired bronchiectasis (960139803) Acquired bronchiectasis (J47.9) Active confirmed Vital Signs Heart Rate 77 /min 03/23/2025 Blood pressure diastolic 72 mm Hg 03/23/2025 Height 63.25 in 03/23/2025 Blood pressure systolic 162 mm Hg 03/23/2025 Weight 178.0 lbs 03/23/2025 BMI 31.28 kg/m2 03/23/2025 Encounters Encounter Location Date Provider Diagnosis [facility] [address] [place], [place] [id number] 06/12/2024 Harmony Orr Respiratory infectio n J98.8 and Essential hypertension I10 [facility] [address] [place] [id number] 06/23/2024 Harmony Orr Bronchiectasis with acute lower respiratory infection J47.0 [facility] [address] [place] [id number] 06/30/2024 Harmony Orr Bronchiectasis witho ut complication J47.9 [facility] [address] [place] [id number] 07/17/2024 Harmony Orr Acquired bronchiecta sis J47.9 [facility] [address] [facility] [address] [place], [place] [id number] 07/21/2024 Harmony Orr Moderate persistent asthmatic bronchitis with acute exacerbation J45.41 ; Acquired bronchiectasis J47.9 and Primary insomnia F51.01 [facility] [address] [facility] [address] [place] [id number] 07/28/2024 Harmony Orr Acquired bronchiecta sis J47.9 [facility] [address] [place] [id number] 09/05/2024 Ree Crowdy Bronchitis J40 [facility] [address] [place] [id number] 09/11/2024 Ree Crowdy Bronchitis J40 [facility] [address] [facility] [address] [place] [id number] 10/27/2024 Harmony Orr Interstitial lung disease J84.9 ; Positive ANDRES (antinuclear antibody) R76.8 ; Essential hypertension I10 and BMI 29.0-29.9,adult Z68.29 [facility] [address] [place] [id number] 12/05/2024 Harmony Orr Allergic rhinitis, unspecified seasonality, unspecified trigger J30.9 [facility] [address] [facility] [address] [place] [id number] 12/09/2024 J Jeffrey Kirby Allergic rhinitis, unspecified seasonality, unspecified trigger J30.9 [facility] [address] [place] [id number] 12/11/2024 Jf [place] Acute URI J06.9 [facility] [address] [place] [id number] 12/17/2024 J Jeffrey Kirby Allergic rhinitis, unspecified seasonality, unspecified trigger J30.9 [facility] [address] [place] [id number] 12/19/2024 J Jeffrey Kirby Allergic rhinitis, unspecified seasonality, unspecified trigger J30.9 [facility] [address] [place] [id number] 12/25/2024 J Jeffrey Kirby Allergic rhinitis, unspecified seasonality, unspecified trigger J30.9 [facility] [address] [place] [id number] 12/29/2024 J Jeffrey Kirby Allergic rhinitis, unspecified seasonality, unspecified trigger J30.9 [facility] [address] [place] [id number] 12/31/2024 J Jeffrey Kirby Allergic rhinitis, unspecified seasonality, unspecified trigger J30.9 [facility] [address] [place] [id number] 01/05/2025 J Jeffrey Kirby Allergic rhinitis, unspecified seasonality, unspecified trigger J30.9 [facility] [address] [place] [id number] 01/08/2025 J Jeffrey Kibry Allergic rhinitis, unspecified seasonality, unspecified trigger J30.9 [facility] [address] [place] [id number] 01/13/2025 J Jeffrey Kirby Allergic rhinitis, unspecified seasonality, unspecified trigger J30.9 [facility] [address] [place] [id number] 01/15/2025 J Jeffrey Kirby Allergic rhinitis, unspecified seasonality, unspecified trigger J30.9 [facility] [address] [place] [id number] 01/19/2025 J Jeffrey Orr Allergic rhinitis, unspecified seasonality, unspecified trigger J30.9 [facility] [address] [place] [id number] 01/21/2025 J Jeffrey Orr Allergic rhinitis, unspecified seasonality, unspecified trigger J30.9 [facility] [address] [place] [id number] 01/27/2025 J Jeffrey Orr Allergic rhinitis, unspecified seasonality, unspecified trigger J30.9 [facility] [address] [place] [id number] 01/30/2025 J Jeffrey Orr Seasonal allergic rhinitis due to other allergic trigger J30.89 [facility] [address] [place] [id number] 02/02/2025 Harmony Orr Non-seasonal allergi c rhinitis due to other allergic trigger J30.89 [facility] [address] [place], [place] [id number] 02/04/2025 Ree Crowdy Trigger thumb, right thumb M65.311 and Encounter for immunization Z23 [facility] [address] [place] [id number] 02/06/2025 Harmony Orr Non-seasonal allergi c rhinitis due to other allergic trigger J30.89 [facility] [address] [place] [id number] 02/09/2025 J Jeffrey Orr Allergic rhinitis, unspecified seasonality, unspecified trigger J30.9 [facility] [address] [place] [id number] 02/13/2025 J Jeffrey Orr Allergic rhinitis, unspecified seasonality, unspecified trigger J30.9 [facility] [address] [place] [id number] 02/23/2025 J Jeffrey Orr Allergic rhinitis, unspecified seasonality, unspecified trigger J30.9 [facility] [address] [place] [id number] 02/25/2025 Harmony Orr Allergic rhinitis, unspecified seasonality, unspecified trigger J30.9 [facility] [address] [place] [id number] 03/02/2025 Harmony Orr Allergic rhinitis, unspecified seasonality, unspecified trigger J30.9 [facility] [address] [facility] [address] [place] [id number] 03/04/2025 Harmony Orr Allergic rhinitis, unspecified seasonality, unspecified trigger J30.9 [facility] [address] [place] [id number] 03/12/2025 Harmony Orr Allergic rhinitis, unspecified seasonality, unspecified trigger J30.9 [facility] [address] [facility] [address] [facility] [address] [place] [id number] 03/16/2025 Harmony Orr Bronchiectasis with acute lower respiratory infection J47.0 ; Interstitial lung disease J84.9 and Seasonal allergic rhinitis due to other allergic trigger J30.89 [facility] [address] [facility] [address] [facility] [address] [place] [id number] 03/23/2025 Harmony Orr Acquired bronchiecta sis J47.9 ; Essential hypertension I10 ; Non-seasonal allergic rhinitis due to other allergic trigger J30.89 and Allergic rhinitis, unspecified seasonality, unspecified trigger J30.9 [facility] [address] [facility] [address] [place] [id number] 06/16/2024 Harmony Orr [facility] [address] [facility] [address] [facility] [address] [place] [id number] 03/02/2025 Harmony Orr Assessments Encounter Date Diagnosis (ICD Code) Assessment Notes Treatment Notes Treatment Clinical Notes Section Notes 06/12/2024 Essential hypertension (ICD-10 - I10) 06/12/2024 Respiratory infection (ICD-10 - J98.8) 10/27/2024 Interstitial lung disease (ICD-10 - J84.9) [...] improvement with oral steroids, will send to [facility] for injections. 02/04/2025 Encounter for immunization (ICD-10 [...] (ICD-10 - J47.0) MEDROL DOSEPACK VERBAL ORDERED 06/23/2024 Bronchiectasis with acute lower respiratory infection (ICD-10 - J47.0) Prednisone 40mg daily for 14 days (post discharge), then 20mg for 14 days, then 10mg for 14 days. Needs appt with Dr. Dennis. 06/30/2024 Bronchiectasis without complication (ICD-10 - J47.9) 07/17/2024 Acquired bronchiectasis (ICD-10 - J47.9) 07/21/2024 Moderate persistent asthmatic bronchitis with acute exacerbation (ICD-10 - J45.41) 07/21/2024 Acquired bronchiectasis (ICD-10 - J47.9) 07/28/2024 Acquired bronchiectasis (ICD-10 - J47.9) 09/05/2024 Bronchitis (ICD-10 - J40) 09/11/2024 Bronchitis (ICD-10 - J40) WBC is normal. No need for further abx. Will start on steroids and continue cough medication. 10/27/2024 Positive ANDRES (antinuclear antibody) (ICD-10 - R76.8) 03/23/2025 Acquired bronchiectasis (ICD-10 - J47.9) 03/23/2025 Essential hypertension (ICD-10 - I10) 10/27/2024 Essential hypertension (ICD-10 - I10) 07/21/2024 Primary insomnia (ICD-10 - F51.01) 03/16/2025 Interstitial lung disease (ICD-10 - J84.9) 03/16/2025 Seasonal allergic rhinitis due to other allergic trigger (ICD-10 - J30.89) 10/27/2024 BMI 29.0-29.9,adult (ICD-10 - Z68.29) 03/23/2025 Non-seasonal allergic rhinitis due to other allergic trigger (ICD-10 - J30.89) 03/23/2025 Allergic rhinitis, unspecified seasonality, unspecified trigger (ICD-10 - J30.9) 06/23/2024 Other Discharge summary with available lab/diagnostic imaging results obtained and reviewed. Discharge medication list reconciled. Appropriate counseling provided. Moderate Complexity Plan Of Treatment Pending Test Test Name Order Date sleep study 08/30/2023 P-Comprehensive Metabolic Panel (CMP) Next Appt Details Provider Name:Harmony Murphy Gaby er, 07/24/2025 10:00:00 AM, [address], [place], [place], [id number], Insurance Providers Payer Name Payer Address Payer Phone Subscriber Number Group Number Insured Name Patient Relationship to Insured Coverage Start Date Coverage End Date MEDICARE PART B [address] [address] [place] [address] [id number] SOFIA SALDIVAR Self - patient is the insured [employer] [address] [place] [address] [phone] [id number] DEONNA SALDIVAR Spouse - patient is the [...] 03/16/2025 0.35 mL allergy 03/16/2025 0.35 mL allergy 03/23/2025 0.35 mL mix dog- RA allergy 03/23/2025 0.35 mL mix cat- LA Dexamethasone 11/20/2005 1 mL Dexamethasone 04/10/2018 1 mL Medical (General) History Medical History History ICD Code Hyperlipidemia Hypertension cervical stenosis menopause Covid vaccine x2 Pfizer Jun 2020 Surgical History Surgery Date(Month/Year) Neg proctosig to 60 cm 04/2001 hysterectomy vaginal 11/30/2006 neg colonoscopy, Dr. Hernández 07/03/2005 Cholecystitis, cholelithiasis 12/2008 Cholecystectomy 12/2009 Appendectomy 02/2011 Injection of trigger thumb right 02/2025 Hospitalization History Reason Date(Month/Year) [facility]-bloody diarrhea-colitis 02/02/2015
[2025-03-24 10:45] VITALS: PULSE 79
[2025-03-24] MEDS: ALBUTEROL 0.083% 2.5 MG/3 ML NEB IH (10:45)
== END 2025-03-24 23:59 | disposition home or self-care (01) ==
LOC: RT 09:58
PROVIDERS: PCP Family Medicine; Visit Provider Internal Medicine Pulmonary Disease
DX: J44.9 Chronic obstructive pulmonary disease, unspecified (principal); R94.2 Abnormal results of pulmonary function studies
CPT/HCPCS: 94060; 94618; 94640; 94726; 94729